=== PATIENT | female | born 1955 | race Hispanic/Latino ===

== ENCOUNTER 2017-02-11 15:28 | Inpatient (IN) | payer OTHER ==
[2017-02-11 15:34] VITALS: BMI 19.5
--- NOTE | 2017-02-11 16:15 | C.PDOC ---
History Of Present Illness Jyothi is a 61 y/o female with PMHx of thyroid disease. States that several days ago, she began having discomfort in her leg left, and trouble walking, which resolved that day. The day after (now 3 days ago), she noticed discomfort and weakness of the left arm. This was followed by a mild headache and blurred vision, which patient originally attributed to glasses Rx changes. Started to become concerned about the symptoms and went to PMD. Saw Dr. Urbina today, and was sent to ED for evaluation of possible stroke vs. cervical cord compression. PMD: Giselle Urbina Time Seen by Provider: 02/11/17 15:44 Chief Complaint (Nursing): Upper Extremity Problem/Injury History Per: Patient History/Exam Limitations: no limitations Onset/Duration Of Symptoms: Days (x 3-4) Current Symptoms Are (Timing): Still Present Past Medical History Vital Signs: Last Vital Signs Temp 98 F 02/11/17 15:35 Pulse 91 H 02/11/17 15:53 Resp 16 02/11/17 15:53 BP 181/90 H 02/11/17 15:53 Pulse Ox 100 02/11/17 15:53 - Medical History PMH: HTN, Hyperthyroidism - [facility] Procedures APPLICATION OF SPLINT (12/06/04) INJECT/INFUSE NEC (12/23/03) NEBULIZER THERAPY (05/31/03) - Social History Hx Alcohol Use: No Hx Substance Use: No - Immunization History Hx Tetanus Toxoid Vaccination: Yes Hx Influenza Vaccination: No Hx Pneumococcal Vaccination: No ED Course And Treatment O2 Sat by Pulse Oximetry: 100 Disposition - Disposition Forms: [facility] (Botswanan)
--- NOTE | 2017-02-11 16:15 | RAD ---
HISTORY: CVA COMPARISON: No prior. FINDINGS: LUNGS: No active pulmonary disease. PLEURA: No significant pleural effusion identified, no pneumothorax apparent. CARDIOVASCULAR: Normal. OSSEOUS STRUCTURES: No significant abnormalities. VISUALIZED UPPER ABDOMEN: Normal. OTHER FINDINGS: None. IMPRESSION: No acute cardiopulmonary disease is appreciable.
--- NOTE | 2017-02-11 16:20 | C.PDOC ---
History Of Present Illness Jyothi is a 61 y/o female with PMHx of thyroid disease and HTN. States that several days ago, she began having discomfort in her leg left, and trouble walking, which resolved that day. The day after (now 3 days ago), she noticed discomfort and weakness of the left arm. This was followed by a mild headache and blurred vision, which patient originally attributed to need for glasses Rx change. Started to become concerned about the symptoms and went to PMD. Saw Dr. Urbina today, and was sent to ED for evaluation of possible stroke vs. cervical cord compression. No chest pain, shortness of breath, change in appetite, or altered mental status. Carotid doppler was done in the office and according to him showed a 50-70% occlusion. PMD: Giselle Urbina Time Seen by Provider: 02/11/17 15:44 Chief Complaint (Nursing): Upper Extremity Problem/Injury History Per: Patient History/Exam Limitations: no limitations Onset/Duration Of Symptoms: Days (x 3-4) Current Symptoms Are (Timing): Still Present Associated Symptoms: Blurred Vision, Extremity Weakness Past Medical History Reviewed: Historical Data, Nursing Documentation, Vital Signs Vital Signs: Last Vital Signs Temp 98 F 02/11/17 15:35 Pulse 93 H 02/11/17 16:40 Resp 17 02/11/17 16:40 BP 191/90 H 02/11/17 16:40 Pulse Ox 100 02/11/17 16:40 - Medical History PMH: HTN, Hyperthyroidism Surgical History: No Surg Hx - [facility] Procedures APPLICATION OF SPLINT (12/06/04) INJECT/INFUSE NEC (12/23/03) NEBULIZER THERAPY (05/31/03) Family History: States: CAD, Diabetes, Other Other Family History: COPD, Liver cancer - Social History Hx Tobacco Use: Yes Hx Alcohol Use: No Hx Substance Use: No - Immunization History Hx Tetanus Toxoid Vaccination: Yes Hx Influenza Vaccination: No Hx Pneumococcal Vaccination: No Review Of Systems Except As Marked, All Systems Reviewed And Found Negative. Eyes: Positive for: Vision Change (blurred) Cardiovascular: Negative for: Chest Pain Respiratory: Negative for: Shortness of Breath Neurological: Positive for: Weakness (of the left arm and leg), Headache (mild) . Negative for: Altered Mental Status Physical Exam - Physical Exam Appears: Non-toxic, No Acute Distress Skin: Normal Color, Warm, Dry Head: Atraumatic, Normacephalic Eye(s): bilateral: Normal Inspection, PERRL, EOMI Oral Mucosa: Moist Neck: Other (Bilateral carotid bruits) Chest: Symmetrical Cardiovascular: Rhythm Regular, No Murmur Respiratory: Normal Breath Sounds, No Accessory Muscle Use Gastrointestinal/Abdominal: Normal Exam, Soft, No Tenderness Neurological/Psych: Oriented x3, Normal Speech, Normal Cranial Nerves, No Normal Motor (Weakness of left arm and leg), No Normal Sensation (Decreased sensation to left arm, leg, and cheek), Other (Babinski normal on right, equivocal on left) Extremity: Left: Drift Before 10 Secs (able to lift both extremities), Upper: Drift Before 10 Secs, Lower: Drift Before 10 Secs ED Course And Treatment - Laboratory Results Result Diagrams: 02/11/17 16:07 02/11/17 16:07 Lab Interpretation: No Acute Changes ECG: Interpreted By Me ECG Rhythm: Sinus Rhythm ECG Interpretation: Normal O2 Sat by Pulse Oximetry: 100 (RA) Pulse Ox Interpretation: Normal - Radiology CXR: Viewed By Me, Read By Radiologist CXR Interpretation: Yes: No Acute Disease - CT Scan/US CT Head Other Rad Studies (CT/US): Read By Radiologist, Radiology Report Reviewed CT/US Interpretation: Accession No. : [id number]. Patient Name / ID : BERLIN MACK / [id number]. Exam Date : 02/11/2017 16:16:36 ( Approved ). Study Comment : Sex / Age : F / 61Y. Creator : Juan Carlos Santamaria MD. Dictator : Juan Carlos Santamaria MD. Direct Care Staffer : Hand Clerical Verifier : Juan Carlos Santamaria MD. Approver2 : Report Date : 02/11/2017 16:25:00. My Comment : . PROCEDURE: CT HEAD WITHOUT CONTRAST. HISTORY: STROKE ALERT. COMPARISON: None available. TECHNIQUE: Axial computed tomography images were obtained through the head/brain without intravenous contrast. Radiation dose: Total exam DLP = 766 mGy-cm. This CT exam was performed using one or more of the following dose reduction techniques: Automated exposure control, adjustment of the mA and/or kV according to patient size, and/or use of iterative reconstruction technique. FINDINGS: HEMORRHAGE: No intracranial hemorrhage. BRAIN: A small chronic lacune or dilated perivascular a seen at the posterior margins of the left internal capsule. Remaining parenchymal density is unremarkable above and below the tentorium including throughout the brainstem. Borderline diffuse cerebral atrophy is appreciated. There is no mass effect. There is no suspicious extra-axial collection appreciated. . VENTRICLES: Unremarkable. No hydrocephalus. CALVARIUM: Unremarkable. PARANASAL SINUSES: Unremarkable as visualized. No significant inflammatory changes. MASTOID AIR CELLS: Unremarkable as visualized. No inflammatory changes. OTHER FINDINGS: None. IMPRESSION: 1. Borderline diffuse cerebral atrophy. A small chronic lacune or dilated perivascular space is noted at the posterior margins of the posterior limb left internal capsule. 2. No intracranial hemorrhage, cortical edema or mass-effect. Findings were discussed with Dr. Cristina 02/11/2017 16:20 p.m. with written down and read back verification. Reevaluation Time: 16:50 Reassessment Condition: Unchanged - Physician Consult Information Time Consulting Physician Contacted: 16:50 Physician Contacted: Giselle Urbina Outcome Of Conversation: Patient to be admited for MRI of head and neck, r/o CVA vs possible cord compression. Medical Decision Making Medical Decision Making: Time: 15:53 Initial Plan: --Labs, CXR, and EKG ordered --Pending CT Head w/o contrast Time: 16:13 Chest X-Ray: FINDINGS: LUNGS: No active pulmonary disease. PLEURA: No significant pleural effusion identified, no pneumothorax apparent. CARDIOVASCULAR: Normal. OSSEOUS STRUCTURES: No significant abnormalities. VISUALIZED UPPER ABDOMEN: Normal. OTHER FINDINGS: None. IMPRESSION: No acute cardiopulmonary disease is appreciable. Time: 16:25 CT Head w/o contrast: FINDINGS: HEMORRHAGE: No intracranial hemorrhage. BRAIN: A small chronic lacune or dilated perivascular a seen at the posterior margins of the left internal capsule. Remaining parenchymal density is unremarkable above and below the tentorium including throughout the brainstem. Borderline diffuse cerebral atrophy is appreciated. There is no mass effect. There is no suspicious extra-axial collection appreciated. . VENTRICLES: Unremarkable. No hydrocephalus. CALVARIUM: Unremarkable. PARANASAL SINUSES: Unremarkable as visualized. No significant inflammatory changes. MASTOID AIR CELLS: Unremarkable as visualized. No inflammatory changes. OTHER FINDINGS: None. IMPRESSION: 1. Borderline diffuse cerebral atrophy. A small chronic lacune or dilated perivascular space is noted at the posterior margins of the posterior limb left internal capsule. 2. No intracranial hemorrhage, cortical edema or mass-effect. Findings were discussed with Dr. Cristina 02/11/2017 16:20 p.m. with written down and read back verification. Disposition - Disposition Disposition: HOSPITALIZED Disposition Time: 16:51 Condition: STABLE - POA Present On Arrival: None - Clinical Impression Clinical Impression: Hemiplegia and hemiparesis following unspecified cerebrovascular disease affecting left dominant side - Scribe Statement The provider has reviewed the documentation as recorded by the Ani Muñoz All medical record entries made by the Belgicaibmiguel were at my direction and personally dictated by me. I have reviewed the chart and agree that the record accurately reflects my personal performance of the history, physical exam, medical decision making, and the department course for this patient. I have also personally directed, reviewed, and agree with the discharge instructions and disposition.
[2017-02-11 16:23] LABS: BASO # 0.1 K/uL (0.0-0.2); BASO % 0.6 % (0.0-2.0); EOS # 0.2 K/uL (0.0-0.7); EOS % 1.3 % (0.0-4.0); HEMATOCRIT 44.2 % (34.0-47.0); LYMPH # 3.6 K/uL (1.0-4.3); LYMPH % 31.2 % (20.0-40.0); MEAN CELL VOLUME 82.9 fL (81.0-99.0); MEAN CORPUSCULAR HEMOGLOBIN 27.7 pg (27.0-31.0); MEAN CORPUSCULAR HGB CONC 33.4 g/dL (33.0-37.0); MEAN PLATELET VOLUME 7.6 fL (7.2-11.7); MONO # 1.1 K/uL (0.0-0.8); MONO % 9.2 % (0.0-10.0); NRBC % 0.1 % (0.0-2.0); RED CELL DISTRIBUTION WIDTH 15.1 % (11.5-14.5); WHITE BLOOD COUNT 11.6 K/uL (4.8-10.8)
[2017-02-11 16:25] LABS: CHLORIDE 103 mmol/L (98-107); SODIUM 141 mmol/L (132-148)
--- NOTE | 2017-02-11 16:25 | C.PDOC ---
Time Seen by Provider: 02/11/17 15:44 Chief Complaint (Nursing): Upper Extremity Problem/Injury Past Medical History Vital Signs: Last Vital Signs Temp 98 F 02/11/17 15:35 Pulse 87 02/11/17 15:35 Resp 18 02/11/17 15:35 BP 180/83 H 02/11/17 15:35 Pulse Ox 100 02/11/17 15:35 - Medical History PMH: HTN, Hyperthyroidism - [facility] Procedures APPLICATION OF SPLINT (12/06/04) INJECT/INFUSE NEC (12/23/03) NEBULIZER THERAPY (05/31/03) - Social History Hx Alcohol Use: No Hx Substance Use: No - Immunization History Hx Tetanus Toxoid Vaccination: Yes Hx Influenza Vaccination: No Hx Pneumococcal Vaccination: No ED Course And Treatment O2 Sat by Pulse Oximetry: 100 Disposition - Disposition Forms: [employer] [facility] (Armenian)
--- NOTE | 2017-02-11 16:26 | CT ---
PROCEDURE: CT HEAD WITHOUT CONTRAST. HISTORY: STROKE ALERT COMPARISON: None available. TECHNIQUE: Axial computed tomography images were obtained through the head/brain without intravenous contrast. Radiation dose: Total exam DLP = 766 mGy-cm. This CT exam was performed using one or more of the following dose reduction techniques: Automated exposure control, adjustment of the mA and/or kV according to patient size, and/or use of iterative reconstruction technique. FINDINGS: HEMORRHAGE: No intracranial hemorrhage. BRAIN: A small chronic lacune or dilated perivascular a seen at the posterior margins of the left internal capsule. Remaining parenchymal density is unremarkable above and below the tentorium including throughout the brainstem. Borderline diffuse cerebral atrophy is appreciated. There is no mass effect. There is no suspicious extra-axial collection appreciated. . VENTRICLES: Unremarkable. No hydrocephalus. CALVARIUM: Unremarkable. PARANASAL SINUSES: Unremarkable as visualized. No significant inflammatory changes. MASTOID AIR CELLS: Unremarkable as visualized. No inflammatory changes. OTHER FINDINGS: None. IMPRESSION: 1. Borderline diffuse cerebral atrophy. A small chronic lacune or dilated perivascular space is noted at the posterior margins of the posterior limb left internal capsule. 2. No intracranial hemorrhage, cortical edema or mass-effect. Findings were discussed with Dr. Cristina 02/11/2017 16:20 p.m. with written down and read back verification.
[2017-02-11 16:27] LABS: CHOLESTEROL 245 mg/dL (0-199)
[2017-02-11 16:28] LABS: ALB/GLOB RATIO 1.4 (1.0-2.1); ALKALINE PHOSPHATASE 58 U/L (38-126); AST/SGOT 18 U/L (14-36); BILIRUBIN,TOTAL 0.5 mg/dL (0.2-1.3); BLOOD UREA NITROGEN 13 mg/dL (7-17); CARBON DIOXIDE 26 mmol/L (22-30); GFR AFRICAN-AMERICAN > 60; GLUCOSE,RANDOM 140 mg/dL (65-105); TOTAL PROTEIN 7.7 g/dL (6.3-8.3)
[2017-02-11 16:29] LABS: ALT/SGPT 32 U/L (9-52); CALCIUM 9.4 mg/dl (8.6-10.4)
[2017-02-12] MEDS: Levothyroxine 75 MCG TAB PO SCH (06:08)
[2017-02-12] MEDS: Enoxaparin 40 mg Syringe SC SCH (09:09)
--- NOTE | 2017-02-12 11:15 | MRI ---
PROCEDURE: Magnetic Resonance Angiography Brain HISTORY: left hemiplegia,hemiparesis COMPARISON: None available. TECHNIQUE: 3D time of flight MR angiography of the intracranial arteries was performed. Rotating maximum intensity projection images were generated. FINDINGS: INTERNAL CEREBRAL ARTERIES: There is mild asymmetric narrowing of the right intracranial internal carotid artery. The left internal carotid artery is normal in caliber and widely patent. The skull base, petrous, cavernous and supraclinoid segments are bilaterally widely patient. ANTERIOR CEREBRAL ARTERIES: Widely patent. The right A1 segment is hypoplastic, an anatomic variant. A1 and A2 segments are widely patent. Smaller distal branches unremarkable, as visualized. MIDDLE CEREBRAL ARTERIES: Normal in caliber and widely patent. M1 and M2 segments are widely patent. Perisylvian branches grossly symmetric. There is early bifurcation of right M1 segment. POSTERIOR CIRCULATION: Basilar Artery: Normal in caliber and widely patent. . Distal Vertebral Arteries: Widely patent. The right vertebral artery is hypoplastic, an anatomic variant. Posterior Cerebral Arteries: Normal. Posterior Inferior Cerebellar Arteries: Normal. ANEURYSM/ VASCULAR MALFORMATIONS: None. OTHER FINDINGS: None. IMPRESSION: 1. No evidence of occlusion or saccular aneurysm. 2. Mild asymmetric narrowing of the right intracranial internal carotid artery could be related to underlying atherosclerosis.
--- NOTE | 2017-02-12 11:33 | MRI ---
PROCEDURE: MRI BRAIN WITHOUT CONTRAST HISTORY: left hemiphlegia,hemiparesis COMPARISON: Noncontrast head CT from 02/11/2017 TECHNIQUE: Multiplanar, multisequence MR images of the brain were obtained without intravenous contrast enhancement. FINDINGS: HEMORRHAGE: None DWI: There are several scattered foci of restricted diffusion in the right frontal and parietal cortex and subcortical white matter BRAIN PARENCHYMA: There are mild chronic microangiopathic changes. There is no mass, mass effect or abnormal extra-axial fluid collection. The midline sagittal structures are normal. VENTRICLES: There is mild age-related global parenchymal volume loss and proportionate enlargement of the ventricles and cortical sulci. CRANIUM: There is normal bone marrow signal pattern. ORBITS: Grossly unremarkable. PARANASAL SINUSES/MASTOIDS: Predominantly clear. VASCULAR SYSTEM: There is mild asymmetric narrowing of the right intracranial internal carotid artery flow void. There are normal signal voids in the remaining larger intracranial arteries. OTHER FINDINGS: None. IMPRESSION: 1. Scattered foci of restricted diffusion in the right frontal and parietal cortex and subcortical white matter consistent with right MCA territory infarction. The pattern of distribution is in keeping with embolic etiology. 2. Mild asymmetric narrowing of the right intracranial internal carotid artery likely related to underlying atherosclerosis. Important findings were discussed with nurse Itzel Clement on 02/12/2017 at 11:25 a.m.
--- NOTE | 2017-02-12 11:39 | CP.PCM.PN ---
Subjective - Date & Time of Evaluation Date of Evaluation: 02/12/17 Time of Evaluation: 11:30 - Subjective Subjective: PROGRESS NOTE. Service for Dr. Urbina Pt seen and examined at bedside. No acute distress. No events overnight. Neurology workup pending, including results from MRI. No fevers, chills, vomiting, diarrhea. Still admits to weakness left side, improved. PMD: Dr. Urbina PMH: HTN, hypothyroidism, anxiety PSHx: Cholecystectomy Family Hx: Type 2 diabetes, HTN, "heart problems" Social: Tobacco: 1 ppd x 40 years, denies alcohol and drug use. Born in . Allergies: Iodine (anaphylaxis), fish Medications: Synthroid, Lorazepam, HCTZ Objective - Vital Signs/Intake and Output Vital Signs (last 24 hours): Temp Pulse Resp BP Pulse Ox 98.2 F 74 20 134/71 97 02/12/17 04:10 02/12/17 04:10 02/12/17 04:10 02/12/17 04:10 02/12/17 04:10 - Medications Medications: Current Medications Acetaminophen (Tylenol 325mg Tab) 650 mg PO Q4H PRN PRN Reason: Pain, moderate (4-7) Aspirin (Aspirin) 325 mg PO DAILY [facility] Last Admin: 02/12/17 09:09 Dose: 325 mg Enoxaparin Sodium (Lovenox) 40 mg SC DAILY [facility] Last Admin: 02/12/17 09:09 Dose: Not Given Hydrochlorothiazide (Microzide) 12.5 mg PO DAILY [facility] Last Admin: 02/12/17 09:09 Dose: 12.5 mg Levothyroxine Sodium (Synthroid) 75 mcg PO DAILY@0630 [facility] Last Admin: 02/12/17 06:08 Dose: 75 mcg Lorazepam (Ativan) 1 mg PO Q8H [facility] Last Admin: 02/12/17 06:31 Dose: 1 mg Rosuvastatin Calcium (Crestor) 10 mg PO HS [facility] Last Admin: 02/11/17 22:30 Dose: 10 mg - Labs Labs: PT 11.2 SECONDS (9.7-12.2) 02/11/17 16:07 INR 1.0 02/11/17 16:07 APTT 30 SECONDS (21-34) 02/11/17 16:07 - Constitutional Appears: Non-toxic, No Acute Distress - Head Exam Head Exam: ATRAUMATIC, NORMAL INSPECTION, NORMOCEPHALIC - Eye Exam Eye Exam: EOMI - ENT Exam ENT Exam: Mucous Membranes Moist - Neck Exam Neck Exam: Full ROM, Normal Inspection - Respiratory Exam Respiratory Exam: NORMAL BREATHING PATTERN. absent: Respiratory Distress - Cardiovascular Exam Cardiovascular Exam: +S1, +S2 - GI/Abdominal Exam GI & Abdominal Exam: Soft, Normal Bowel Sounds. absent: Tenderness - Extremities Exam Extremities Exam: Full ROM, Normal Inspection - Neurological Exam Neurological Exam: Alert, Awake, Oriented x3 Neuro motor strength exam: Left Upper Extremity: 3, Right Upper Extremity: 5, Left Lower Extremity: 3, Right Lower Extremity: 5 - Psychiatric Exam Psychiatric exam: Normal Affect, Normal Mood - Skin Skin Exam: Dry, Intact, Normal Color, Warm Assessment and Plan - Assessment and Plan (Free Text) Assessment: This is a 61 yo female with past medical hx of HTN and hypothyroidism presenting with weakness, left sided 1. Weakness, left sided -carotid dopplers pending -MRI brain pending -asa 325 daily -neurology consult. recs appreciated -vascular sx consult. recs appreciated. -crestor 10 PO HS -lovenox 40 SC daily -cxr negative -head ct shows diffuse cerebral atrophy -ekg shows nsr -tylenol for pain 2. hx of hypothyroid -continue synthroid 75 mcg daily 3. hx of HTN -continue hctz 12.5 mg po daily 4. GI/DVT ppx -lovenox -protonix discussed with Dr. Urbina
--- NOTE | 2017-02-12 11:42 | CP.PCM.PN ---
Subjective - Date & Time of Evaluation Date of Evaluation: 02/12/17 Time of Evaluation: 11:41 - Subjective Subjective: awaiting additional imaging suplex and cta prior to decision re intervention Objective - Vital Signs/Intake and Output Vital Signs (last 24 hours): Temp Pulse Resp BP Pulse Ox 98.2 F 74 20 134/71 97 02/12/17 04:10 02/12/17 04:10 02/12/17 04:10 02/12/17 04:10 02/12/17 04:10 - Medications Medications: Current Medications Acetaminophen (Tylenol 325mg Tab) 650 mg PO Q4H PRN PRN Reason: Pain, moderate (4-7) Aspirin (Aspirin) 325 mg PO DAILY [facility] Last Admin: 02/12/17 09:09 Dose: 325 mg Enoxaparin Sodium (Lovenox) 40 mg SC DAILY [facility] Last Admin: 02/12/17 09:09 Dose: Not Given Hydrochlorothiazide (Microzide) 12.5 mg PO DAILY [facility] Last Admin: 02/12/17 09:09 Dose: 12.5 mg Levothyroxine Sodium (Synthroid) 75 mcg PO DAILY@0630 [facility] Last Admin: 02/12/17 06:08 Dose: 75 mcg Lorazepam (Ativan) 1 mg PO Q8H [facility] Last Admin: 02/12/17 06:31 Dose: 1 mg Pantoprazole Sodium (Protonix Inj) 40 mg IVP DAILY [facility] Rosuvastatin Calcium (Crestor) 10 mg PO HS [facility] Last Admin: 02/11/17 22:30 Dose: 10 mg - Labs Labs: PT 11.2 SECONDS (9.7-12.2) 02/11/17 16:07 INR 1.0 02/11/17 16:07 APTT 30 SECONDS (21-34) 02/11/17 16:07
[2017-02-12 11:44] LABS: BASO # 0.1 K/uL (0.0-0.2); BASO % 0.5 % (0.0-2.0); EOS # 0.2 K/uL (0.0-0.7); EOS % 1.4 % (0.0-4.0); HEMATOCRIT 42.1 % (34.0-47.0); LYMPH # 3.8 K/uL (1.0-4.3); LYMPH % 30.8 % (20.0-40.0); MEAN CELL VOLUME 82.7 fL (81.0-99.0); MEAN CORPUSCULAR HEMOGLOBIN 27.1 pg (27.0-31.0); MEAN CORPUSCULAR HGB CONC 32.8 g/dL (33.0-37.0); MEAN PLATELET VOLUME 7.7 fL (7.2-11.7); MONO # 1.4 K/uL (0.0-0.8); MONO % 11.3 % (0.0-10.0); RED CELL DISTRIBUTION WIDTH 15.3 % (11.5-14.5); WHITE BLOOD COUNT 12.4 K/uL (4.8-10.8)
--- NOTE | 2017-02-12 11:46 | MRI ---
PROCEDURE: MR CERVICAL SPINE WITHOUT CONTRAST HISTORY: Left hemiplegia, hemiparesis COMPARISON: None available. TECHNIQUE: Multiecho multiplanar sequences were performed through the cervical spine without the use of intravenous contrast. FINDINGS: There is normal alignment of the cervical vertebral bodies. There is normal cervical lordosis. Vertebral height is normal. There is no acute fracture or spondylolisthesis. The craniocervical junction is normal. The atlantoaxial joint is normal. Bone marrow signal is within normal limits. The cervical cord is normal in contour, caliber and has normal intrinsic signal. C2-C3: No disc herniation, spinal canal stenosis or neural foraminal narrowing. C3-C4: No disc herniation, spinal canal stenosis or neural foraminal narrowing. C4-C5: Disc osteophyte complex with small central disc protrusion without spinal canal stenosis. Asymmetric right greater than left facet arthropathy contributes to mild right neural foraminal stenosis. C5-C6: Disc osteophyte complex, uncovertebral joint hypertrophy and mild bilateral facet arthropathy result in moderate to severe right and moderate left neural foraminal stenosis. No central spinal canal stenosis. C6-C7: Disc osteophyte complex, asymmetric right left uncovertebral joint hypertrophy and mild bilateral facet arthropathy result in severe right neural foraminal stenosis. No spinal canal stenosis. C7-T1: Disc osteophyte complex with small central disc protrusion indents the ventral thecal sac without central spinal canal stenosis. Also noted is mild right neural foraminal stenosis. OTHER FINDINGS: None. IMPRESSION: Mild multilevel degenerative disc disease, worse at C7-T1 with a central disc protrusion and mild right neural foraminal stenosis. No spinal canal stenosis. At C6-7, severe right neural foraminal stenosis. No central spinal canal stenosis. Additional comments as described above.
[2017-02-12 11:55] LABS: CHLORIDE 103 mmol/L (98-107); POTASSIUM 3.8 mmol/L (3.6-5.2); SODIUM 144 mmol/L (132-148)
[2017-02-12 11:57] LABS: AST/SGOT 21 U/L (14-36); BILIRUBIN,TOTAL 0.6 mg/dL (0.2-1.3); CARBON DIOXIDE 32 mmol/L (22-30); GFR AFRICAN-AMERICAN > 60
[2017-02-12 11:58] LABS: ALB/GLOB RATIO 1.3 (1.0-2.1); ALKALINE PHOSPHATASE 50 U/L (38-126); ALT/SGPT 30 U/L (9-52); BLOOD UREA NITROGEN 13 mg/dL (7-17); CALCIUM 9.2 mg/dl (8.6-10.4); GLUCOSE,RANDOM 88 mg/dL (65-105); TOTAL PROTEIN 7.4 g/dL (6.3-8.3)
--- NOTE | 2017-02-12 13:41 | CP.PCM.HP ---
Review of Systems - Constitutional Constitutional: Weakness (left arm and leg). absent: Headache - EENT Eyes: Change in Vision, Floaters, Sees Flashes, Spots in Vision Ears: absent: Dizziness - Cardiovascular Cardiovascular: absent: Chest Pain, Dyspnea, Lightheadedness - Respiratory Respiratory: absent: Dyspnea - Gastrointestinal Gastrointestinal: absent: Abdominal Pain, Constipation, Diarrhea, Nausea, Vomiting - Neurological Neurological: Weakness, Other Visual Disturbances. absent: Abnormal Speech, Dizziness, Headaches - Psychiatric Psychiatric: Anxiety Past Patient History - Past Medical History & Family History Past Medical History?: Yes - Past Social History Smoking Status: Heavy Smoker > 10 Cigarettes Daily - CARDIAC Hx Cardiac Disorders: Yes Hx Hypertension: Yes - PULMONARY Hx Respiratory Disorders: Yes Hx Asthma: Yes - NEUROLOGICAL Hx Neurological Disorder: No - HEENT Hx HEENT Problems: Yes Other/Comment: some occasional loss of vision in right eye - RENAL Hx Chronic Kidney Disease: No - ENDOCRINE/METABOLIC Hx Endocrine Disorders: Yes Hx Hyperthyroidism: Yes - HEMATOLOGICAL/ONCOLOGICAL Hx Blood Disorders: No - INTEGUMENTARY Hx Dermatological Problems: No - MUSCULOSKELETAL/RHEUMATOLOGICAL Hx Musculoskeletal Disorders: No Hx Falls: No - GASTROINTESTINAL Hx Gastrointestinal Disorders: No - GENITOURINARY/GYNECOLOGICAL Hx Genitourinary Disorders: No - PSYCHIATRIC Hx Psychophysiologic Disorder: No Hx Substance Use: No - SURGICAL HISTORY Hx Surgeries: No - ANESTHESIA Hx Anesthesia: Yes Hx Anesthesia Reactions: Yes (nausea/vomiting) Meds Allergies/Adverse Reactions: Allergies Allergy/AdvReac Type Severity Reaction Status Date / Time iodine Allergy Verified 02/11/17 15:34 Physical Exam - Head Exam Head Exam: ATRAUMATIC, NORMAL INSPECTION - Eye Exam Eye Exam: EOMI, Normal appearance - ENT Exam ENT Exam: Mucous Membranes Moist - Respiratory Exam Respiratory Exam: Decreased Breath Sounds, Clear to Auscultation Bilateral. absent: Rhonchi, Wheezes - Cardiovascular Exam Cardiovascular Exam: REGULAR RHYTHM, +S1, +S2 - GI/Abdominal Exam GI & Abdominal Exam: Soft. absent: Distended, Tenderness - Extremities Exam Extremities exam: Positive for: pedal pulses present. Negative for: pedal edema , tenderness - Neurological Exam Neurological exam: Alert, CN II-XII Intact, Normal Gait, Oriented x3 Additional comments: Right UE & LE strength 5/5 Left UE & LE strength 3/5 - Psychiatric Exam Psychiatric exam: Normal Affect, Normal Mood - Skin Skin Exam: Dry, Intact, Normal Color, Warm Results - Vital Signs Recent Vital Signs: Last Vital Signs Temp 98.2 F 02/12/17 04:10 Pulse 74 02/12/17 04:10 Resp 20 02/12/17 04:10 BP 134/71 02/12/17 04:10 Pulse Ox 97 02/12/17 04:10 - Labs Result Diagrams: 02/12/17 11:38 02/12/17 11:38 Labs: Laboratory Results - last 24 hr 02/12/17 02/12/17 11:38 11:38 WBC 12.4 H RBC 5.09 Hgb 13.8 Hct 42.1 MCV 82.7 MCH 27.1 MCHC 32.8 L RDW 15.3 H Plt Count 306 MPV 7.7 Neut % (Auto) 56.0 Lymph % (Auto) 30.8 [place] % (Auto) 11.3 H Eos % (Auto) 1.4 Baso % (Auto) 0.5 Neut # 6.9 Lymph # 3.8 [place] # 1.4 H Eos # 0.2 Baso # 0.1 Sodium 144 Potassium 3.8 Chloride 103 Carbon Dioxide 32 H Anion Gap 13 BUN 13 Creatinine 0.7 Est GFR ( Amer) > 60 Est GFR (Non-Af Amer) > 60 Random Glucose 88 Calcium 9.2 Total Bilirubin 0.6 AST 21 ALT 30 Alkaline Phosphatase 50 Total Protein 7.4 Albumin 4.2 Globulin 3.3 Albumin/Globulin Ratio 1.3
--- NOTE | 2017-02-12 13:57 | CP.PCM.CON ---
History of Present Illness - History of Present Illness History of Present Illness: Patient is a 61 year old female with a past medical history of HTN, hypothyroidism and anxiety, who was sent to the [facility] ED by her PMD ( Dr. Urbina) for evaluation of left-sided hemiparesis. Patient states the left- sided weakness began 4 days ago when she was in bed and prompted her to visit her PMD. Patient states that she had imaging done "in the vessels of her neck," which showed occlusion but patient is unsure to which degree. Patient also reports having changes in vision and seeing floaters for which she has an appointment next week for laser surgery. She reports that she believes her symptoms started with the vision changes, followed by the left-sided weakness. Patient currently denies chest pain, abdominal pain, nausea, vomiting, fevers, and headaches. PMD: Dr. Urbina PMH: HTN (uncontrolled), hypothyroidism, anxiety PSHx: Cholecystectomy Family Hx: Type 2 diabetes, HTN, "heart problems" Social: Tobacco: 1 ppd x40 years, denies alcohol and drug use Allergies: Iodine (anaphylaxis), fish Medications: Synthroid, Lorazepam, HCTZ (see EMR) Review of Systems - Constitutional Constitutional: Weakness. absent: Headache - EENT Eyes: Change in Vision, Floaters, Spots in Vision Ears: absent: Dizziness - Cardiovascular Cardiovascular: absent: Chest Pain, Dyspnea, Lightheadedness - Respiratory Respiratory: absent: Dyspnea - Gastrointestinal Gastrointestinal: absent: Abdominal Pain, Constipation, Diarrhea, Nausea, Vomiting - Musculoskeletal Additional comments: left sided weakness - Neurological Neurological: Weakness, Other Visual Disturbances. absent: Abnormal Speech, Dizziness, Headaches - Psychiatric Psychiatric: Anxiety Past Patient History - Past Medical History & Family History Past Medical History?: Yes - Past Social History Smoking Status: Heavy Smoker > 10 Cigarettes Daily - CARDIAC Hx Cardiac Disorders: Yes Hx Hypertension: Yes - PULMONARY Hx Respiratory Disorders: Yes Hx Asthma: Yes - NEUROLOGICAL Hx Neurological Disorder: No - HEENT Hx HEENT Problems: Yes Other/Comment: some occasional loss of vision in right eye - RENAL Hx Chronic Kidney Disease: No - ENDOCRINE/METABOLIC Hx Endocrine Disorders: Yes Hx Hyperthyroidism: Yes - HEMATOLOGICAL/ONCOLOGICAL Hx Blood Disorders: No - INTEGUMENTARY Hx Dermatological Problems: No - MUSCULOSKELETAL/RHEUMATOLOGICAL Hx Musculoskeletal Disorders: No Hx Falls: No - GASTROINTESTINAL Hx Gastrointestinal Disorders: No - GENITOURINARY/GYNECOLOGICAL Hx Genitourinary Disorders: No - PSYCHIATRIC Hx Psychophysiologic Disorder: No Hx Substance Use: No - SURGICAL HISTORY Hx Surgeries: No - ANESTHESIA Hx Anesthesia: Yes Hx Anesthesia Reactions: Yes (nausea/vomiting) Meds Allergies/Adverse Reactions: Allergies Allergy/AdvReac Type Severity Reaction Status Date / Time iodine Allergy Verified 02/11/17 15:34 - Medications Medications: Current Medications Acetaminophen (Tylenol 325mg Tab) 650 mg PO Q4H PRN PRN Reason: Pain, moderate (4-7) Aspirin (Aspirin) 325 mg PO DAILY [facility] Last Admin: 02/12/17 09:09 Dose: 325 mg Enoxaparin Sodium (Lovenox) 40 mg SC DAILY [facility] Last Admin: 02/12/17 09:09 Dose: Not Given Hydrochlorothiazide (Microzide) 12.5 mg PO DAILY [facility] Last Admin: 02/12/17 09:09 Dose: 12.5 mg Levothyroxine Sodium (Synthroid) 75 mcg PO DAILY@0630 [facility] Last Admin: 02/12/17 06:08 Dose: 75 mcg Lorazepam (Ativan) 1 mg PO Q8H [facility] Last Admin: 02/12/17 06:31 Dose: 1 mg Pantoprazole Sodium (Protonix Inj) 40 mg IVP DAILY [facility] Rosuvastatin Calcium (Crestor) 10 mg PO HS [facility] Last Admin: 02/11/17 22:30 Dose: 10 mg Physical Exam - Head Exam Head Exam: ATRAUMATIC, NORMAL INSPECTION - Eye Exam Eye Exam: EOMI, Normal appearance - ENT Exam ENT Exam: Mucous Membranes Moist - Respiratory Exam Respiratory Exam: Decreased Breath Sounds, Clear to Auscultation Bilateral. absent: Rhonchi, Wheezes - Cardiovascular Exam Cardiovascular Exam: REGULAR RHYTHM, +S1, +S2 - GI/Abdominal Exam GI & Abdominal Exam: Soft. absent: Distended, Firm, Tenderness - Extremities Exam Extremities exam: Positive for: pedal pulses present. Negative for: pedal edema , tenderness - Neurological Exam Neurological exam: Alert, CN II-XII Intact, Normal Gait, Oriented x3 Additional comments: Right UE & LE strength: 5/5 Left UE & LE strength: 3/5 - Psychiatric Exam Psychiatric exam: Normal Affect, Normal Mood - Skin Skin Exam: Dry, Intact, Normal Color, Warm Results - Vital Signs Recent Vital Signs: Last Vital Signs Temp 98.2 F 02/12/17 04:10 Pulse 74 02/12/17 04:10 Resp 20 02/12/17 04:10 BP 134/71 02/12/17 04:10 Pulse Ox 97 02/12/17 04:10 - Labs Result Diagrams: 02/12/17 11:38 02/12/17 11:38 Labs: Laboratory Results - last 24 hr 02/12/17 02/12/17 11:38 11:38 WBC 12.4 H RBC 5.09 Hgb 13.8 Hct 42.1 MCV 82.7 MCH 27.1 MCHC 32.8 L RDW 15.3 H Plt Count 306 MPV 7.7 Neut % (Auto) 56.0 Lymph % (Auto) 30.8 [place] % (Auto) 11.3 H Eos % (Auto) 1.4 Baso % (Auto) 0.5 Neut # 6.9 Lymph # 3.8 [place] # 1.4 H Eos # 0.2 Baso # 0.1 Sodium 144 Potassium 3.8 Chloride 103 Carbon Dioxide 32 H Anion Gap 13 BUN 13 Creatinine 0.7 Est GFR ( Amer) > 60 Est GFR (Non-Af Amer) > 60 Random Glucose 88 Calcium 9.2 Total Bilirubin 0.6 AST 21 ALT 30 Alkaline Phosphatase 50 Total Protein 7.4 Albumin 4.2 Globulin 3.3 Albumin/Globulin Ratio 1.3 Assessment & Plan - Assessment and Plan (Free Text) Assessment: 61 year old female consulted for left sided hemiparesis. - Follow up carotid duplex. - Plan for CT of the neck tomorrow, following [place] Protocol. - Continue medical management as per hospitalist team.
--- NOTE | 2017-02-12 17:00 | CARD ---
APPROVED REPORT EKG Measurement Heart [id number] <Conclusion> Normal sinus rhythm Normal ECG
--- NOTE | 2017-02-12 22:19 | CARD ---
APPROVED REPORT EXAM: Two-dimensional and M-mode echocardiogram with Doppler and color Doppler. INDICATION Pericardial Effusion RISK FACTORS Hypertension 2D DIMENSIONS IVSd0.9 (0.7-1.1cm)LVDd3.9 (3.9-5.9cm) PWd0.9 (0.7-1.1cm)LVDs2.8 (2.5-4.0cm) FS (%) 28.9 %LVEF (%)60.1 (>50%) M-Mode DIMENSIONS Left Atrium (MM)3.24 (2.5-4.0cm)Aortic Root2.65 (2.2-3.7cm) Aortic Cusp Exc.1.58 (1.5-2.0cm) Mitral Valve MV E Zifcqfuk00.6cm/sMV A Ekyvxbbt30.9cm/sE/A ratio1.0 TDI E/Lateral E'0.0E/Medial E'0.0 Tricuspid Valve TR Peak Teijvkcf022zs/sTR Peak [id number] <Conclusion> Left ventricle: thickness: normal; size: normal; overall ejection fraction: 56%: diastolic filling pressures: normal Mitral valve: annulus: normal: leaflets: normal: excursion: normal; no significant trans-mitral gradient: no significant incompetence: left atrium: normal Aortic valve: leaflets: normal: excursion: normal; no significant trans-aortic gradient: No significant incompetence: aortic root: normal Right sided Structures: Pulmonary valve: normal; no significant incompetence; Tricuspid valve: normal; no significant incompetence: Intra-cardiac hemodynamics: pulmonary systolic pressures: normal; central venous pressures: normal trace pericardial effusion
--- NOTE | 2017-02-13 05:28 | CON ---
DATE: 02/12/2017 NEUROLOGY CONSULTATION REASON FOR CONSULTATION: Left-sided weakness. HISTORY OF PRESENT ILLNESS: The patient is a 61-year-old female who came to the hospital with complaints of left-sided weakness. Her weakness started about 4 days ago. It started first in her leg and then involved her left arm as well. Thus, she saw her PMD who recommended her to go to the emergency room. The patient says over the last 4 days, her weakness on the left side has gotten a little better. Thus, she denies any difficulty with speech. Denies any difficulty with swallowing. REVIEW OF SYSTEMS: Denies any headache, dizziness, chest pain, shortness of breath, abdominal pain, constipation, diarrhea, dysuria, pyuria, cough, or sputum production. PAST MEDICAL HISTORY: Includes hypothyroidism. MEDICATIONS AT HOME: Include Synthroid and lorazepam. ALLERGIES: IODINE. SOCIAL HISTORY: She denies alcohol use or illicit drugs. She does smoke cigarettes. FAMILY HISTORY: Reviewed and noncontributory to the case. PHYSICAL EXAMINATION: GENERAL: The patient is a middle-aged female, lying in the bed, in no acute distress. VITAL SIGNS: Her blood pressure is 150/86, heart rate is 77 per minute, breathing at the rate of 16 per minute, temperature is 98.3 degrees Fahrenheit. HEENT: Head, normocephalic and atraumatic. NECK: Supple. There are no carotid bruits. LUNGS: Clear. CVS: S1 and S2 audible. No murmurs. ABDOMEN: Soft and nontender. Bowel sounds present. NEUROLOGIC: Mental status: The patient is awake and alert, oriented to time, place, and person. Speech is slow in naming and repetition is normal. Memory and cognition are intact. Cranial nerves: Pupils are 3 mm bilaterally, reactive to light. Visual alexis are full. Extraocular movements are intact. There is slight decrease in the nasolabial fold on the left side. Palate is upgoing bilaterally and tongue is midline. Motor: Tone is normal. Power, there is a left-sided pronator drift. Power on the right upper extremity is 5/5 and power on the right lower extremity 5/5. Power in the left lower extremity -5/5. Reflexes are +2 and symmetrical. Plantars downgoing bilaterally. Cerebellar examination: [id number] shows no dysmetria. LABORATORY DATA: Reviewed shows WBC 12.4, hemoglobin 13.8, hematocrit 42.1, platelets of 306. INR is 1.0. Sodium 144, potassium 3.8, chloride 103, carbon dioxide 32, BUN of 13, creatinine 0.7, and glucose of 88. Her LDL is 175. She had an MRI of the brain done which shows scattered foci of restricted diffusion in the right frontal and parietal cortex and subcortical white matter consistent with right MCA territory infarction. The pattern of distribution is in keeping with embolic etiology. The patient had MRA of the brain, which shows no evidence of an occlusion or saccular aneurysm. The patient had carotid Doppler study, the report is awaited. The patient also had an echocardiogram done, the report is awaited. IMPRESSION: Cerebrovascular accident with right middle cerebral artery distribution infarct, possible embolic etiology. RECOMMENDATIONS: 1. The patient had carotid Doppler and echocardiogram done, please follow up the reports. The preliminary report suggests severe right ICA stenosis. 2. The patient to be continued on aspirin. 3. The patient will also to be continued on statin. 4. The patient to have physical therapy. 5. The patient also to have occupational therapy. 6. Please continue the treatment. If the carotid Doppler shows the stenosis more than 70%, then consider vascular surgical evaluation. Thank you for the opportunity to participate in the care of this patient. Grupo Fagan MD
[2017-02-13] MEDS: Levothyroxine 75 MCG TAB PO SCH ×2 (06:36→10:25)
[2017-02-13 08:09] LABS: BASO % 0.2 % (0.0-2.0); HEMATOCRIT 43.7 % (34.0-47.0); LYMPH # 1.9 K/uL (1.0-4.3); LYMPH % 11.9 % (20.0-40.0); MEAN CELL VOLUME 82.7 fL (81.0-99.0); MEAN CORPUSCULAR HGB CONC 32.6 g/dL (33.0-37.0); MEAN PLATELET VOLUME 8.1 fL (7.2-11.7); MONO # 0.5 K/uL (0.0-0.8); MONO % 3.1 % (0.0-10.0); WHITE BLOOD COUNT 15.8 K/uL (4.8-10.8)
--- NOTE | 2017-02-13 08:29 | CP.PCM.PN ---
Subjective - Date & Time of Evaluation Date of Evaluation: 02/13/17 Time of Evaluation: 08:29 - Subjective Subjective: Patient was seen and examined at bedside. Patient reports having the same feeling of weakness in her left arm and leg. Patient denies pain. Patient reports she is anxious about having CT angiogram of the neck today, wants to wait to discuss with family. Patient denies having chest pain, abdominal pain, nausea, vomiting, headaches, and fevers. Objective - Vital Signs/Intake and Output Vital Signs (last 24 hours): Temp Pulse Resp BP Pulse Ox 97.8 F 78 20 147/80 96 02/13/17 04:23 02/13/17 04:23 02/13/17 04:23 02/13/17 04:23 02/13/17 04:23 - Medications Medications: Current Medications Acetaminophen (Tylenol 325mg Tab) 650 mg PO Q4H PRN PRN Reason: Pain, moderate (4-7) Aspirin (Aspirin) 325 mg PO DAILY [facility] Last Admin: 02/12/17 09:09 Dose: 325 mg Enoxaparin Sodium (Lovenox) 40 mg SC DAILY [facility] Last Admin: 02/12/17 09:09 Dose: Not Given Hydrochlorothiazide (Microzide) 12.5 mg PO DAILY [facility] Last Admin: 02/12/17 09:09 Dose: 12.5 mg Levothyroxine Sodium (Synthroid) 75 mcg PO DAILY@0630 [facility] Last Admin: 02/13/17 06:36 Dose: Not Given Lorazepam (Ativan) 1 mg PO Q8H [facility] Last Admin: 02/13/17 05:58 Dose: 1 mg Pantoprazole Sodium (Protonix Inj) 40 mg IVP DAILY [facility] Rosuvastatin Calcium (Crestor) 10 mg PO HS [facility] Last Admin: 02/12/17 21:49 Dose: 10 mg - Labs Labs: 02/13/17 08:01 02/12/17 11:38 PT 11.2 SECONDS (9.7-12.2) 02/11/17 16:07 INR 1.0 02/11/17 16:07 APTT 30 SECONDS (21-34) 02/11/17 16:07 - Head Exam Head Exam: ATRAUMATIC, NORMAL INSPECTION - Eye Exam Eye Exam: EOMI, Normal appearance - ENT Exam ENT Exam: Mucous Membranes Moist - Respiratory Exam Respiratory Exam: Decreased Breath Sounds, Clear to Ausculation Bilateral. absent: Rales, Rhonchi, Wheezes - Cardiovascular Exam Cardiovascular Exam: REGULAR RHYTHM, +S1, +S2 - GI/Abdominal Exam GI & Abdominal Exam: Soft, Normal Bowel Sounds. absent: Distended, Firm, Tenderness - Extremities Exam Extremities Exam: Normal Inspection. absent: Tenderness - Neurological Exam Neurological Exam: Alert, Awake, Oriented x3 - Psychiatric Exam Psychiatric exam: Anxious - Skin Skin Exam: Dry, Intact, Normal Color, Warm Assessment and Plan - Assessment and Plan (Free Text) Assessment: 61 year old female consulted for left sided hemiparesis. - Carotid duplex: follow up official report. - Plan for CT angiogram of the neck, following [place] Protocol; pending on discussion with family. - Continue medical management as per hospitalist team.
[2017-02-13 08:35] LABS: CHLORIDE 101 mmol/L (98-107); SODIUM 139 mmol/L (132-148)
[2017-02-13 08:37] LABS: BILIRUBIN,TOTAL 0.6 mg/dL (0.2-1.3); GFR AFRICAN-AMERICAN > 60
[2017-02-13 08:38] LABS: ALB/GLOB RATIO 1.3 (1.0-2.1); ALKALINE PHOSPHATASE 50 U/L (38-126); ALT/SGPT 27 U/L (9-52); AST/SGOT 18 U/L (14-36); BLOOD UREA NITROGEN 13 mg/dL (7-17); CARBON DIOXIDE 23 mmol/L (22-30); GLUCOSE,RANDOM 159 mg/dL (65-105); TOTAL PROTEIN 7.7 g/dL (6.3-8.3)
[2017-02-13 08:39] LABS: CALCIUM 9.4 mg/dl (8.6-10.4); MAGNESIUM 1.8 mg/dL (1.6-2.3); PHOSPHOROUS 3.8 mg/dL (2.5-4.5)
--- NOTE | 2017-02-13 09:14 | CP.PCM.PN ---
Subjective - Date & Time of Evaluation Date of Evaluation: 02/13/17 Time of Evaluation: 11:00 - Subjective Subjective: PGY2 Medicine Note- Dr. Urbina's service Pt seen and examined in no acute distress. Pt states that she has been experiencing left sided weakness for the past 4-5 months. She also reports right lower extremity pain for the past year. She states that she sometimes feels anxious but is otherwise okay at the moment. Daughter was present bedside. PAtient denies chest pain, palpitations, dizziness, nausea, vomiting, diarrhea or constipation at this time. Objective - Vital Signs/Intake and Output Vital Signs (last 24 hours): Temp Pulse Resp BP Pulse Ox 97.9 F 86 20 167/89 H 99 02/13/17 09:05 02/13/17 09:05 02/13/17 09:05 02/13/17 09:05 02/13/17 09:05 - Medications Medications: Current Medications Acetaminophen (Tylenol 325mg Tab) 650 mg PO Q4H PRN PRN Reason: Pain, moderate (4-7) Aspirin (Aspirin) 325 mg PO DAILY [facility] Last Admin: 02/12/17 09:09 Dose: 325 mg Enoxaparin Sodium (Lovenox) 40 mg SC DAILY [facility] Last Admin: 02/12/17 09:09 Dose: Not Given Hydrochlorothiazide (Microzide) 12.5 mg PO DAILY [facility] Last Admin: 02/12/17 09:09 Dose: 12.5 mg Levothyroxine Sodium (Synthroid) 75 mcg PO DAILY@0630 [facility] Last Admin: 02/13/17 06:36 Dose: Not Given Lorazepam (Ativan) 1 mg PO Q8H [facility] Last Admin: 02/13/17 05:58 Dose: 1 mg Pantoprazole Sodium (Protonix Inj) 40 mg IVP DAILY [facility] Rosuvastatin Calcium (Crestor) 10 mg PO HS [facility] Last Admin: 02/12/17 21:49 Dose: 10 mg - Labs Labs: 02/13/17 08:01 02/13/17 08:01 PT 11.2 SECONDS (9.7-12.2) 02/11/17 16:07 INR 1.0 02/11/17 16:07 APTT 30 SECONDS (21-34) 02/11/17 16:07 - Constitutional Appears: Non-toxic, No Acute Distress - Head Exam Head Exam: ATRAUMATIC, NORMAL INSPECTION, NORMOCEPHALIC - Eye Exam Eye Exam: EOMI, Normal appearance, PERRL Pupil Exam: NORMAL ACCOMODATION, PERRL - ENT Exam ENT Exam: Mucous Membranes Moist - Respiratory Exam Respiratory Exam: NORMAL BREATHING PATTERN. absent: Wheezes - Cardiovascular Exam Cardiovascular Exam: +S1, +S2 - GI/Abdominal Exam GI & Abdominal Exam: Soft, Normal Bowel Sounds - Extremities Exam Extremities Exam: Calf Tenderness, Full ROM, Normal Capillary Refill. absent: Pedal Edema - Back Exam Back Exam: Full ROM - Neurological Exam Neurological Exam: Alert, Awake, CN II-XII Intact, Oriented x3 Neuro motor strength exam: Left Upper Extremity: 4, Right Upper Extremity: 5, Left Lower Extremity: 4, Right Lower Extremity: 5 - Psychiatric Exam Psychiatric exam: Normal Affect, Normal Mood - Skin Skin Exam: Dry, Normal Color, Warm Assessment and Plan - Assessment and Plan (Free Text) Assessment: Left sided hemeparesis Carotid dopplers Right: 70-95% of the right proximal ICA with severe hemodynamic significance; left: 60-70% stenosis of left proximal and mid ICA with moderte hemodynamic significance. CTA confirms findings. Refer to full report. -MRI brain: suspected right MCA territory infarction -ASA 325 daily with Crestor 10 mg HS -F/U Neuro reccs -F/U Vascular Surgery recs- Patient to OR on Thursday for endarterectomy -ekg shows nsr -tylenol for pain Hypothyroidism Continue synthroid 75 mcg daily HTN Cont HCTZ 12.5 mg po daily Hypercholesterolemia Crestor 10mg PO HS Anxiety On Lorazapam Q8H Prophylaxis -Lovenox 40 mg SC daily(Should be held Thursday night; order in place) -Protonix 40 mg IV daily -SCDs
[2017-02-13] MEDS ORDERED: Iodixanol 320 MG/ML 100 ML BOTTLE IV ONE (09:18)
[2017-02-13] MEDS: Enoxaparin 40 mg Syringe SC SCH ×2 (10:16→10:31)
--- NOTE | 2017-02-13 10:59 | CT ---
PROCEDURE: CT Angiography of the neck with contrast HISTORY: right hemispheric stroke COMPARISON: None available. TECHNIQUE: Contiguous axial images of the neck were obtained from the level of the skull-base to the superior mediastinum in the arteriographic phase of enhancement. Coronal and sagittal reformats or also generated. IV contrast dose: Visipaque 320, 100 cc. Radiation Dose - DLP: 322 mGy-cm This CT exam was performed using one or more of the following dose reduction techniques: Automated exposure control, adjustment of the mA and/or kV according to patient size, and/or use of iterative reconstruction technique. FINDINGS: RIGHT CAROTID ARTERIES: Common Carotid Artery: Widely patent without significant stenosis. Carotid Bifurcation: Prominent atherosclerotic plaque is partially calcified at the distal bulb proximal to the origin of the right ICA. Internal Carotid Artery:Atherosclerotic plaque continues into the origin the right internal carotid artery resulting in a greater than 80 percent stenosis. External Carotid Artery (proximal branches): Normal. LEFT CAROTID ARTERIES: Common Carotid Artery: Patent throughout its bifurcation however there is a mild stenosis at the origin with limited atherosclerotic plaque identified there. Carotid Bifurcation: Mild atherosclerotic plaque seen in the bulb extending into the left ICA origin. Internal Carotid Artery:Approximate 40 to 50 percent stenosis seen at the proximal left ICA from the origin T1-2 cm distal to the origin. External Carotid Artery (proximal branches): Normal. VERTEBRAL ARTERIES: Right Vertebral Artery: Normal. Left Vertebral Artery: Normal. OTHER FINDINGS: Incidentally, the bilateral visualized cavernous internal carotid artery segments appear not to have any significant stenoses. IMPRESSION: 1. High-grade stenosis of the proximal right internal carotid artery is appreciated at its origin greater than 80 percent. No significant stenosis right common carotid artery. 2. 40-50 percent stenosis appreciated at the origin of the left internal carotid artery with remainder widely patent. 3. Widely patent bilateral common carotid arteries.
--- NOTE | 2017-02-13 11:03 | VASCLAB ---
PROCEDURE: HISTORY: left hemiphlegia,hemiparesis COMPARISON: None available. TECHNIQUE: Grayscale and duplex Doppler evaluation of the cervical carotid and vertebral arteries were performed. The common carotid, carotid bifurcations and cervical Internal Carotid Artery (ICA) and proximal External Carotid Artery (ECA) were evaluated. The vertebral arteries were evaluated for gross patency and flow direction. Report prepared by Luis Fernando Real, BS, RVT FINDINGS: RIGHT CAROTID ARTERIES: 1. Common Carotid Artery: No significant focal plaque formation of the right common carotid artery. Maximum Peak Systolic velocity: 39 cm/sec: End-diastolic velocity 8 cm/sec. 2. Carotid Bifurcation: plaque formation. Maximum Peak Systolic velocity: 38 cm/sec: End-diastolic velocity 9 cm/sec. 3. Internal Carotid Artery: Plaque description: 3.1. Proximal Segment: Peak systolic velocity 694 cm/sec: End-diastolic velocity 211 cm/sec - % stenosis 70-95% 3.2. Middle Segment: Peak systolic velocity 81 cm/sec: End-diastolic velocity 0 cm/sec - % stenosis 0-15% 3.3. Distal Segment: Peak systolic velocity 42 cm/sec: End-diastolic velocity 15 cm/sec - % stenosis 0-15% 4. External Carotid Artery: No significant focal plaque formation. Peak systolic velocity 149 cm/sec 5. ICA/CCA Ratio: 17.6 LEFT CAROTID ARTERIES: 1. Common Carotid Artery: No significant focal plaque formation of the left common carotid artery. Maximum Peak Systolic velocity: 86 cm/sec: End-diastolic velocity 25 cm/sec. 2. Carotid Bifurcation: plaque formation. Maximum Peak Systolic velocity: 83 cm/sec: End-diastolic velocity 29 cm/sec. 3. Internal Carotid Artery: Plaque description: 3.1. Proximal Segment: Peak systolic velocity 188 cm/sec: End-diastolic velocity 72 cm/sec - % stenosis 60-70% 3.2. Middle Segment: Peak systolic velocity 174 cm/sec: End-diastolic velocity 64 cm/sec - % stenosis 60-70% 3.3. Distal Segment: Peak systolic velocity 118 cm/sec: End-diastolic velocity 38 cm/sec - % stenosis 0-15% 4. External Carotid Artery: No significant focal plaque formation. Peak systolic velocity 93 cm/sec 5. ICA/CCA Ratio: 2.2 VERTEBRAL ARTERIES: 1. Right Vertebral Artery: The right vertebral artery flow direction is antegrade. 2. Left Vertebral Artery: The left vertebral artery flow direction is antegrade. OTHER FINDINGS: 1. Right Brachial Blood pressure: 158 mmHg. 2. Left Brachial Blood pressure: 146 mmHg. YOLI Robbins notified about the findings. IMPRESSION: RIGHT: 70-95% stenosis of the right proximal ICA with severe hemodynamic significance. LEFT: 60-70% stenosis of the left proximal and mid ICA with moderate hemodynamic significance.
--- NOTE | 2017-02-13 14:52 | HP ---
HISTORY OF PRESENT ILLNESS: A 61-year-old female who presented with a chief complaint of left-sided weakness. The patient came to the office, it was later found to have left sided weakness, advised to come to the emergency room immediately. The patient came to the ER for admission for possible stroke. The patient is a smoker. History of hypothyroidism. PHYSICAL EXAMINATION: GENERAL: The patient is awake, alert and oriented. VITAL SIGNS: Temperature is 98 and pulse 90. HEENT: Within normal limits. NECK: Supple. CHEST: Symmetrical. HEART: Regular. ABDOMEN: Soft. EXTREMITIES: No edema. left upper extremity 3/5 and lower extremity 4/5. IMPRESSION: The patient suffered probable cerebrovascular accident. The patient neuro check. Had a neurology evaluation . Giselle Urbina MD
[2017-02-14] MEDS ORDERED: Aluminum Hydroxide/Magnesium Hydroxide Susp (30 mL) PO ONE ×2 (00:45→02:00)
[2017-02-14] MEDS: Levothyroxine 75 MCG TAB PO SCH (05:29)
--- NOTE | 2017-02-14 09:54 | CP.PCM.PN ---
Subjective - Date & Time of Evaluation Date of Evaluation: 02/14/17 Time of Evaluation: 09:52 - Subjective Subjective: Vascular Surgery - Dr. York Pt S&E. TATIANA. Pt denies any complaints at this time. Her left sided weakness seems to be improving daily, today with good strength in the left side. She is aware of plan for surgery Thursday. No F/C, SOb/Cp. Objective - Vital Signs/Intake and Output Vital Signs (last 24 hours): Temp Pulse Resp BP Pulse Ox 97.7 F 76 20 146/74 99 02/14/17 07:00 02/14/17 07:00 02/14/17 07:00 02/14/17 07:00 02/14/17 07:00 Intake and Output: 02/14/17 02/14/17 06:59 18:59 Intake Total 480 Balance 480 - Medications Medications: Current Medications Acetaminophen (Tylenol 325mg Tab) 650 mg PO Q4H PRN PRN Reason: Pain, moderate (4-7) Aspirin (Aspirin) 325 mg PO DAILY [facility] Last Admin: 02/13/17 10:16 Dose: 325 mg Enoxaparin Sodium (Lovenox) 40 mg SC DAILY [facility] Last Admin: 02/13/17 10:31 Dose: Not Given Hydrochlorothiazide (Microzide) 12.5 mg PO DAILY [facility] Last Admin: 02/13/17 10:16 Dose: 12.5 mg Levothyroxine Sodium (Synthroid) 75 mcg PO DAILY@0630 [facility] Last Admin: 02/14/17 05:29 Dose: 75 mcg Lorazepam (Ativan) 1 mg PO Q8H [facility] Last Admin: 02/14/17 05:33 Dose: Not Given Pantoprazole Sodium (Protonix Inj) 40 mg IVP DAILY [facility] Last Admin: 02/13/17 10:16 Dose: 40 mg Rosuvastatin Calcium (Crestor) 10 mg PO HS [facility] Last Admin: 02/13/17 21:59 Dose: 10 mg - Labs Labs: 02/13/17 08:01 02/13/17 08:01 PT 11.2 SECONDS (9.7-12.2) 02/11/17 16:07 INR 1.0 02/11/17 16:07 APTT 30 SECONDS (21-34) 02/11/17 16:07 - Constitutional Appears: No Acute Distress - Head Exam Head Exam: ATRAUMATIC, NORMOCEPHALIC - Eye Exam Eye Exam: Normal appearance - Respiratory Exam Respiratory Exam: NORMAL BREATHING PATTERN. absent: Respiratory Distress - Cardiovascular Exam Cardiovascular Exam: REGULAR RHYTHM - Neurological Exam Neurological Exam: Alert, Oriented x3 Neuro motor strength exam: Left Upper Extremity: 4, Right Upper Extremity: 5, Left Lower Extremity: 4, Right Lower Extremity: 5 - Psychiatric Exam Psychiatric exam: Normal Affect, Normal Mood - Skin Skin Exam: Dry, Intact Assessment and Plan - Assessment and Plan (Free Text) Assessment: 61 F s/p R MCA stroke w/ R ICA stenosis 80% -OR Thursday for R CEA -Pre-op optimization -Continue care as per medical team DW Dr. Chela Rogers PGY3
[2017-02-14] MEDS: Enoxaparin 40 mg Syringe SC SCH ×2 (10:16→10:31)
[2017-02-15] MEDS: Levothyroxine 75 MCG TAB PO SCH (06:15)
[2017-02-15 07:21] LABS: BASO # 0.1 K/uL (0.0-0.2); BASO % 0.5 % (0.0-2.0); EOS # 0.2 K/uL (0.0-0.7); EOS % 1.3 % (0.0-4.0); LYMPH # 5.6 K/uL (1.0-4.3); LYMPH % 44.7 % (20.0-40.0); MEAN CORPUSCULAR HEMOGLOBIN 26.8 pg (27.0-31.0); MEAN CORPUSCULAR HGB CONC 32.7 g/dL (33.0-37.0); MEAN PLATELET VOLUME 7.7 fL (7.2-11.7); MONO # 1.2 K/uL (0.0-0.8); MONO % 9.7 % (0.0-10.0); RED CELL DISTRIBUTION WIDTH 14.9 % (11.5-14.5); WHITE BLOOD COUNT 12.5 K/uL (4.8-10.8)
[2017-02-15 08:08] LABS: BLOOD UREA NITROGEN 19 mg/dL (7-17); CARBON DIOXIDE 30 mmol/L (22-30); CHLORIDE 98 mmol/L (98-107); GFR AFRICAN-AMERICAN > 60; GLUCOSE,RANDOM 89 mg/dL (65-105); PHOSPHOROUS 4.7 mg/dL (2.5-4.5); POTASSIUM 3.9 mmol/L (3.6-5.2); SODIUM 141 mmol/L (132-148); TOTAL PROTEIN 6.8 g/dL (6.3-8.3)
[2017-02-15 08:09] LABS: ALB/GLOB RATIO 1.3 (1.0-2.1); ALKALINE PHOSPHATASE 55 U/L (38-126); ALT/SGPT 31 U/L (9-52); AST/SGOT 18 U/L (14-36); BILIRUBIN,TOTAL 0.4 mg/dL (0.2-1.3); CALCIUM 9.2 mg/dl (8.6-10.4); MAGNESIUM 1.9 mg/dL (1.6-2.3)
[2017-02-15] MEDS: Enoxaparin 40 mg Syringe SC SCH (09:14)
--- NOTE | 2017-02-15 09:48 | CP.PCM.PN ---
Subjective - Date & Time of Evaluation Date of Evaluation: 02/15/17 Time of Evaluation: 09:13 - Subjective Subjective: Surgery Progress note. Dr. York Pt seen and examined at bedside. No acute events overnight. No complaints. No N/ V/D. No CP/SOB. Sangeeta states that her left sided weakness is much improved. Objective - Vital Signs/Intake and Output Vital Signs (last 24 hours): Temp Pulse Resp BP Pulse Ox 98.1 F 66 20 121/68 97 02/15/17 07:40 02/15/17 07:40 02/15/17 07:40 02/15/17 07:40 02/15/17 07:40 Intake and Output: 02/15/17 02/15/17 06:59 18:59 Intake Total 660 Balance 660 - Medications Medications: Current Medications Acetaminophen (Tylenol 325mg Tab) 650 mg PO Q4H PRN PRN Reason: Pain, moderate (4-7) Aspirin (Aspirin) 325 mg PO DAILY [facility] Last Admin: 02/15/17 09:07 Dose: 325 mg Enoxaparin Sodium (Lovenox) 40 mg SC DAILY [facility] Last Admin: 02/15/17 09:14 Dose: Not Given Hydrochlorothiazide (Microzide) 12.5 mg PO DAILY [facility] Last Admin: 02/15/17 09:07 Dose: 12.5 mg Levothyroxine Sodium (Synthroid) 75 mcg PO DAILY@0630 [facility] Last Admin: 02/15/17 06:15 Dose: 75 mcg Lorazepam (Ativan) 1 mg PO Q8H [facility] Last Admin: 02/15/17 06:15 Dose: 1 mg Pantoprazole Sodium (Protonix Inj) 40 mg IVP DAILY [facility] Last Admin: 02/15/17 09:07 Dose: 40 mg Rosuvastatin Calcium (Crestor) 10 mg PO HS [facility] Last Admin: 02/14/17 21:30 Dose: 10 mg - Labs Labs: 02/15/17 07:16 02/15/17 07:16 PT 11.0 SECONDS (9.7-12.2) 02/15/17 07:16 INR 1.0 02/15/17 07:16 APTT 28 SECONDS (21-34) 02/15/17 07:16 - Constitutional Appears: Well, No Acute Distress - Head Exam Head Exam: ATRAUMATIC, NORMAL INSPECTION, NORMOCEPHALIC - Eye Exam Eye Exam: EOMI - ENT Exam ENT Exam: Mucous Membranes Moist - Neck Exam Neck Exam: Full ROM - Respiratory Exam Respiratory Exam: NORMAL BREATHING PATTERN. absent: Rhonchi, Wheezes, Respiratory Distress - Cardiovascular Exam Cardiovascular Exam: absent: JVD - GI/Abdominal Exam GI & Abdominal Exam: Soft. absent: Distended, Firm, Guarding, Rigid, Tenderness - Extremities Exam Extremities Exam: Full ROM. absent: Calf Tenderness - Neurological Exam Neurological Exam: Alert, Awake Neuro motor strength exam: Left Upper Extremity: 5, Right Upper Extremity: 5, Left Lower Extremity: 5, Right Lower Extremity: 5 - Psychiatric Exam Psychiatric exam: Normal Affect, Normal Mood - Skin Skin Exam: Dry, Intact, Normal Color, Warm Assessment and Plan - Assessment and Plan (Free Text) Assessment: 61yo F with R MCA stroke w/ R ICA stenosis 80% - Patient to obtain Cardiac CATH tomorrow (02/16) afternoon by Dr. Damon - OR for CEA tentatively postponed to Thursday, 02/17 - Continue to medically maximize Discussed case with Dr. York. Further recs as per Dr. Chela Kwan PGY1 surgery pager: [phone]
--- NOTE | 2017-02-15 20:48 | CP.PCM.CON ---
History of Present Illness - History of Present Illness History of Present Illness: CC: Pre Op cardiac risk assessment Patient is a 61 year old female with a past medical history of HTN, hypothyroidism and anxiety, who was sent to the [facility] ED by her PMD ( Dr. Urbina) for evaluation of left-sided hemiparesis. Patient states the left- sided weakness began 4 days ago when she was in bed and prompted her to visit her PMD. Patient states that she had imaging done "in the vessels of her neck," which showed occlusion but patient is unsure to which degree. Patient also reports having changes in vision and seeing floaters for which she has an appointment next week for laser surgery. She reports that she believes her symptoms started with the vision changes, followed by the left-sided weakness. Patient currently denies chest pain, abdominal pain, nausea, vomiting, fevers, and headaches. PMD: Dr. Urbina PMH: HTN (uncontrolled), hypothyroidism, anxiety PSHx: Cholecystectomy Family Hx: Type 2 diabetes, HTN, "heart problems" Social: Tobacco: 1 ppd x40 years, denies alcohol and drug use Allergies: Iodine (anaphylaxis), fish Medications: Synthroid, Lorazepam, HCTZ (see EMR) Review of Systems - Constitutional Constitutional: Weakness. absent: Headache - EENT Eyes: Change in Vision, Floaters, Spots in Vision Ears: absent: Dizziness - Cardiovascular Cardiovascular: absent: Chest Pain, Dyspnea, Lightheadedness - Respiratory Respiratory: absent: Dyspnea - Gastrointestinal Gastrointestinal: absent: Abdominal Pain, Constipation, Diarrhea, Nausea, Vomiting - Musculoskeletal Additional comments: left sided weakness - Neurological Neurological: Weakness, Other Visual Disturbances. absent: Abnormal Speech, Dizziness, Headaches - Psychiatric Psychiatric: Anxiety Meds Allergies/Adverse Reactions: Allergies Allergy/AdvReac Type Severity Reaction Status Date / Time iodine Allergy Verified 02/11/17 15:34 - Medications Medications: Current Medications Acetaminophen (Tylenol 325mg Tab) 650 mg PO Q4H PRN PRN Reason: Pain, moderate (4-7) Aspirin (Aspirin) 325 mg PO DAILY [facility] Last Admin: 02/12/17 09:09 Dose: 325 mg Enoxaparin Sodium (Lovenox) 40 mg SC DAILY [facility] Last Admin: 02/12/17 09:09 Dose: Not Given Hydrochlorothiazide (Microzide) 12.5 mg PO DAILY [facility] Last Admin: 02/12/17 09:09 Dose: 12.5 mg Levothyroxine Sodium (Synthroid) 75 mcg PO DAILY@0630 [facility] Last Admin: 02/12/17 06:08 Dose: 75 mcg Lorazepam (Ativan) 1 mg PO Q8H [facility] Last Admin: 02/12/17 06:31 Dose: 1 mg Pantoprazole Sodium (Protonix Inj) 40 mg IVP DAILY [facility] Rosuvastatin Calcium (Crestor) 10 mg PO HS [facility] Last Admin: 02/11/17 22:30 Dose: 10 mg Physical Exam - Head Exam Head Exam: ATRAUMATIC, NORMAL INSPECTION - Eye Exam Eye Exam: EOMI, Normal appearance - ENT Exam ENT Exam: Mucous Membranes Moist - Respiratory Exam Respiratory Exam: Decreased Breath Sounds, Clear to Auscultation Bilateral. absent: Rhonchi, Wheezes - Cardiovascular Exam Cardiovascular Exam: REGULAR RHYTHM, +S1, +S2 - GI/Abdominal Exam GI & Abdominal Exam: Soft. absent: Distended, Firm, Tenderness - Extremities Exam Extremities exam: Positive for: pedal pulses present. Negative for: pedal edema , tenderness - Neurological Exam Neurological exam: Alert, CN II-XII Intact, Normal Gait, Oriented x3 Additional comments: Right UE & LE strength: 5/5 Left UE & LE strength: 3/5 - Psychiatric Exam Psychiatric exam: Normal Affect, Normal Mood - Skin Skin Exam: Dry, Intact, Normal Color, Warm Past Patient History - Past Medical History & Family History Past Medical History?: Yes - Past Social History Smoking Status: Heavy Smoker > 10 Cigarettes Daily - CARDIAC Hx Cardiac Disorders: Yes Hx Hypertension: Yes - PULMONARY Hx Respiratory Disorders: Yes Hx Asthma: Yes - NEUROLOGICAL Hx Neurological Disorder: No - HEENT Hx HEENT Problems: Yes Other/Comment: some occasional loss of vision in right eye - RENAL Hx Chronic Kidney Disease: No - ENDOCRINE/METABOLIC Hx Endocrine Disorders: Yes Hx Hyperthyroidism: Yes - HEMATOLOGICAL/ONCOLOGICAL Hx Blood Disorders: No - INTEGUMENTARY Hx Dermatological Problems: No - MUSCULOSKELETAL/RHEUMATOLOGICAL Hx Musculoskeletal Disorders: No Hx Falls: No - GASTROINTESTINAL Hx Gastrointestinal Disorders: No - GENITOURINARY/GYNECOLOGICAL Hx Genitourinary Disorders: No - PSYCHIATRIC Hx Psychophysiologic Disorder: No Hx Substance Use: No - SURGICAL HISTORY Hx Surgeries: No - ANESTHESIA Hx Anesthesia: Yes Hx Anesthesia Reactions: Yes (nausea/vomiting) Meds Allergies/Adverse Reactions: Allergies Allergy/AdvReac Type Severity Reaction Status Date / Time iodine Allergy Verified 02/11/17 15:34 - Medications Medications: Current Medications Acetaminophen (Tylenol 325mg Tab) 650 mg PO Q4H PRN PRN Reason: Pain, moderate (4-7) Aspirin (Aspirin) 325 mg PO DAILY [facility] Last Admin: 02/15/17 09:07 Dose: 325 mg Enoxaparin Sodium (Lovenox) 40 mg SC DAILY [facility] Last Admin: 02/15/17 09:14 Dose: Not Given Hydrochlorothiazide (Microzide) 12.5 mg PO DAILY [facility] Last Admin: 02/15/17 09:07 Dose: 12.5 mg Levothyroxine Sodium (Synthroid) 75 mcg PO DAILY@0630 [facility] Last Admin: 02/15/17 06:15 Dose: 75 mcg Lorazepam (Ativan) 1 mg PO Q8H [facility] Last Admin: 02/15/17 14:14 Dose: 1 mg Pantoprazole Sodium (Protonix Inj) 40 mg IVP DAILY [facility] Last Admin: 02/15/17 09:07 Dose: 40 mg Rosuvastatin Calcium (Crestor) 40 mg PO [facility] Results - Vital Signs Recent Vital Signs: Last Vital Signs Temp 98.1 F 02/15/17 07:40 Pulse 71 02/15/17 13:02 Resp 20 02/15/17 07:40 BP 121/68 02/15/17 07:40 Pulse Ox 97 02/15/17 13:02 - Labs Result Diagrams: 02/15/17 07:16 02/15/17 07:16 Labs: Laboratory Results - last 24 hr 02/15/17 02/15/17 02/15/17 07:16 07:16 07:16 WBC 12.5 H RBC 5.13 Hgb 13.8 Hct 42.0 MCV 82.0 MCH 26.8 L MCHC 32.7 L RDW 14.9 H Plt Count 300 MPV 7.7 Neut % (Auto) 43.8 L Lymph % (Auto) 44.7 H Stanley % (Auto) 9.7 Eos % (Auto) 1.3 Baso % (Auto) 0.5 Neut # 5.5 Lymph # 5.6 H Stanley # 1.2 H Eos # 0.2 Baso # 0.1 PT 11.0 INR 1.0 APTT 28 Sodium 141 Potassium 3.9 Chloride 98 Carbon Dioxide 30 Anion Gap 17 BUN 19 H Creatinine 0.7 Est GFR ( Amer) > 60 Est GFR (Non-Af Amer) > 60 Random Glucose 89 Calcium 9.2 Phosphorus 4.7 H Magnesium 1.9 Total Bilirubin 0.4 AST 18 ALT 31 Alkaline Phosphatase 55 Total Protein 6.8 Albumin 3.8 Globulin 3.0 Albumin/Globulin Ratio 1.3 Assessment & Plan - Assessment and Plan (Free Text) Assessment: 61 F Heavy tobacco use CVA Carotid artery disease Hyperglycemia Hyperlipidemia Needs per Op cardiac risk assessment Not a candidate for stress High likely ambrose of CAD Recommend cath D/W Patient and family at bedside Explained the benefits and the risks of cath Patient agreed to undergo cath
[2017-02-16] MEDS: Levothyroxine 75 MCG TAB PO SCH (06:26)
[2017-02-16] MEDS ORDERED: HEPARIN-NS 5,000 UNITS/500 ML 0 UNIT/0 ML BAG IV ONE (07:28)
[2017-02-16 07:30] LABS: BASO # 0.1 K/uL (0.0-0.2); BASO % 0.4 % (0.0-2.0); EOS # 0.3 K/uL (0.0-0.7); EOS % 2.1 % (0.0-4.0); HEMATOCRIT 42.1 % (34.0-47.0); LYMPH # 5.1 K/uL (1.0-4.3); MEAN CELL VOLUME 81.4 fL (81.0-99.0); MEAN CORPUSCULAR HEMOGLOBIN 27.3 pg (27.0-31.0); MEAN CORPUSCULAR HGB CONC 33.5 g/dL (33.0-37.0); MEAN PLATELET VOLUME 7.6 fL (7.2-11.7); MONO # 1.3 K/uL (0.0-0.8); RED CELL DISTRIBUTION WIDTH 14.6 % (11.5-14.5); WHITE BLOOD COUNT 13.3 K/uL (4.8-10.8)
--- NOTE | 2017-02-16 07:47 | CP.PCM.PN ---
Subjective - Date & Time of Evaluation Date of Evaluation: 02/16/17 Time of Evaluation: 07:40 - Subjective Subjective: Patient was seen and examined at bedside. Patient in no acute distress and has no complaints. 12 point review of systems otherwise negative. Objective - Vital Signs/Intake and Output Vital Signs (last 24 hours): Temp Pulse Resp BP Pulse Ox 97.5 F L 61 20 129/70 97 02/16/17 05:48 02/16/17 05:48 02/16/17 05:48 02/16/17 05:48 02/16/17 05:48 Intake and Output: 02/16/17 02/16/17 06:59 18:59 Intake Total 420 Balance 420 - Medications Medications: Current Medications Acetaminophen (Tylenol 325mg Tab) 650 mg PO Q4H PRN PRN Reason: Pain, moderate (4-7) Aspirin (Aspirin) 325 mg PO DAILY [facility] Last Admin: 02/15/17 09:07 Dose: 325 mg Enoxaparin Sodium (Lovenox) 40 mg SC DAILY [facility] Last Admin: 02/15/17 09:14 Dose: Not Given Hydrochlorothiazide (Microzide) 12.5 mg PO DAILY [facility] Last Admin: 02/15/17 09:07 Dose: 12.5 mg Levothyroxine Sodium (Synthroid) 75 mcg PO DAILY@0630 [facility] Last Admin: 02/16/17 06:26 Dose: 75 mcg Lorazepam (Ativan) 1 mg PO Q8H [facility] Last Admin: 02/16/17 06:26 Dose: 1 mg Pantoprazole Sodium (Protonix Inj) 40 mg IVP DAILY [facility] Last Admin: 02/15/17 09:07 Dose: 40 mg Rosuvastatin Calcium (Crestor) 40 mg PO HS [facility] Last Admin: 02/15/17 21:37 Dose: 40 mg - Labs Labs: 02/16/17 07:11 02/15/17 07:16 PT 11.0 SECONDS (9.7-12.2) 02/16/17 07:11 INR 1.0 02/16/17 07:11 APTT 29 SECONDS (21-34) 02/16/17 07:11 - Head Exam Head Exam: ATRAUMATIC, NORMAL INSPECTION - Eye Exam Eye Exam: EOMI, Normal appearance - ENT Exam ENT Exam: Mucous Membranes Moist - Respiratory Exam Respiratory Exam: Clear to Ausculation Bilateral, NORMAL BREATHING PATTERN. absent: Rales, Rhonchi, Wheezes - Cardiovascular Exam Cardiovascular Exam: REGULAR RHYTHM, +S1, +S2 - GI/Abdominal Exam GI & Abdominal Exam: Soft, Normal Bowel Sounds. absent: Distended, Firm, Tenderness - Extremities Exam Extremities Exam: Normal Inspection. absent: Pedal Edema - Neurological Exam Neurological Exam: Alert, Awake, Oriented x3 - Psychiatric Exam Psychiatric exam: Normal Affect, Normal Mood - Skin Skin Exam: Dry, Intact, Normal Color, Warm Assessment and Plan - Assessment and Plan (Free Text) Assessment: 61 year old female with 80% stenosis of RCA. - Patient to remain NPO for cardiac cath scheduled for today. - Scheduled for OR for CEA tomorrow. - Continue medical management as per hospitalist team.
[2017-02-16 08:12] LABS: CHLORIDE 100 mmol/L (98-107)
[2017-02-16 08:13] LABS: SODIUM 139 mmol/L (132-148)
[2017-02-16 08:15] LABS: ALB/GLOB RATIO 1.3 (1.0-2.1); AST/SGOT 29 U/L (14-36); BILIRUBIN,TOTAL 0.5 mg/dL (0.2-1.3); CARBON DIOXIDE 27 mmol/L (22-30); GFR AFRICAN-AMERICAN > 60; TOTAL PROTEIN 7.1 g/dL (6.3-8.3)
[2017-02-16 08:16] LABS: ALKALINE PHOSPHATASE 54 U/L (38-126); ALT/SGPT 51 U/L (9-52); BLOOD UREA NITROGEN 18 mg/dL (7-17); GLUCOSE,RANDOM 87 mg/dL (65-105); MAGNESIUM 1.9 mg/dL (1.6-2.3); PHOSPHOROUS 3.8 mg/dL (2.5-4.5)
--- NOTE | 2017-02-16 10:03 | CP.PCM.PN ---
Subjective - Date & Time of Evaluation Date of Evaluation: 02/16/17 Time of Evaluation: 07:25 - Subjective Subjective: PGY2 Medicine Note- Dr. Urbina's service Pt seen and examined. No overnight events per nursing. She is nervous for her cardiac cath later today and Carotid endarterectomy (CEA) tomorrow. and son were at bedside and daughter called on phone. Spoke to family at length regarding today and tomorrows procedures. Patient is comfortable, chest pain, palpitations, dizziness, nausea, vomiting, diarrhea, constipation or any additional complaints. Objective - Vital Signs/Intake and Output Vital Signs (last 24 hours): Temp Pulse Resp BP Pulse Ox 97.6 F 73 18 147/78 97 02/16/17 07:45 02/16/17 07:45 02/16/17 07:45 02/16/17 07:45 02/16/17 07:45 Intake and Output: 02/16/17 02/16/17 06:59 18:59 Intake Total 420 Balance 420 - Medications Medications: Current Medications Acetaminophen (Tylenol 325mg Tab) 650 mg PO Q4H PRN PRN Reason: Pain, moderate (4-7) Aspirin (Aspirin) 325 mg PO DAILY [facility] Last Admin: 02/15/17 09:07 Dose: 325 mg Enoxaparin Sodium (Lovenox) 40 mg SC DAILY [facility] Last Admin: 02/15/17 09:14 Dose: Not Given Hydrochlorothiazide (Microzide) 12.5 mg PO DAILY [facility] Last Admin: 02/15/17 09:07 Dose: 12.5 mg Levothyroxine Sodium (Synthroid) 75 mcg PO DAILY@0630 [facility] Last Admin: 02/16/17 06:26 Dose: 75 mcg Lorazepam (Ativan) 1 mg PO Q8H [facility] Last Admin: 02/16/17 06:26 Dose: 1 mg Pantoprazole Sodium (Protonix Inj) 40 mg IVP DAILY [facility] Last Admin: 02/15/17 09:07 Dose: 40 mg Rosuvastatin Calcium (Crestor) 40 mg PO HS [facility] Last Admin: 02/15/17 21:37 Dose: 40 mg - Labs Labs: 02/16/17 07:11 02/16/17 07:11 PT 11.0 SECONDS (9.7-12.2) 02/16/17 07:11 INR 1.0 02/16/17 07:11 APTT 29 SECONDS (21-34) 02/16/17 07:11 - Additional Findings Additional findings: - Constitutional Appears: Non-toxic, No Acute Distress - Head Exam Head Exam: ATRAUMATIC, NORMAL INSPECTION, NORMOCEPHALIC - Eye Exam Eye Exam: EOMI, Normal appearance, PERRL Pupil Exam: NORMAL ACCOMODATION, PERRL - ENT Exam ENT Exam: Mucous Membranes Moist - Respiratory Exam Respiratory Exam: NORMAL BREATHING PATTERN. absent: Wheezes - Cardiovascular Exam Cardiovascular Exam: +S1, +S2 - GI/Abdominal Exam GI & Abdominal Exam: Soft, Normal Bowel Sounds - Extremities Exam Extremities Exam: Calf Tenderness, Full ROM, Normal Capillary Refill. absent: Pedal Edema - Back Exam Back Exam: Full ROM - Neurological Exam Neurological Exam: Alert, Awake, CN II-XII Intact, Oriented x3 - Psychiatric Exam Psychiatric exam: Normal Affect, Normal Mood - Skin Skin Exam: Dry, Normal Color, Warm Assessment and Plan - Assessment and Plan (Free Text) Assessment: Left sided hemeparesis 02/16: Patient given prophylactic Solumedrol 40mg IVP once and Benadryl 50mg IVP once - prior to cath, 2/2 iodine allergy. To continue Benadryl 50mg PO Q6H x48hrs to mitigate allergic reaction. 02/16: Patient NPO for cardiac cath Today. Scheduled for OR for Carotid endarterectomy (CEA) tomorrow. Carotid dopplers Right: 70-95% of the right proximal ICA with severe hemodynamic significance; left: 60-70% stenosis of left proximal and mid ICA with moderte hemodynamic significance. CTA confirms findings. Refer to full report. -MRI brain: suspected right MCA territory infarction -ASA 325 daily with Crestor 10 mg HS -F/U Neuro reccs -F/U Vascular Surgery recs- Patient to OR on Thursday for endarterectomy -ekg shows nsr -tylenol for pain Hypothyroidism Continue synthroid 75 mcg daily HTN Cont HCTZ 12.5 mg po daily Hypercholesterolemia Crestor 10mg PO HS Anxiety On Lorazapam Q8H Prophylaxis -Lovenox 40 mg SC daily(Should be held Thursday night; order in place) -Protonix 40 mg IV daily -SCDs
[2017-02-16] MEDS ORDERED: MethylPREDNISolone 40 mg Vial IVP STA (10:09)
[2017-02-16] MEDS ORDERED: DiphenhydrAMINE 50 mg/ml Inj IVP STA (10:09)
[2017-02-16] MEDS ORDERED: DiphenhydrAMINE 50 mg/ml Inj IVP SCH (14:00)
[2017-02-16] MEDS ORDERED: Midazolam 2 MG/2 ML VIAL ONE (15:57)
[2017-02-16] MEDS ORDERED: Iodixanol 320 MG/ML 100 ML BOTTLE IV ONE (15:57)
--- NOTE | 2017-02-16 16:38 | CP.PCM.PN ---
Subjective - Date & Time of Evaluation Date of Evaluation: 02/16/17 Time of Evaluation: 16:35 - Subjective Subjective: Patient s/p Cath 1. L. Main: Patent 2. LAD/Diags: LAD patent, Diag proximal 70% stenosis 3. L Cx: Patent 4. RCA: Small caliber artery. Mid 60% stenosis 5. LV: EF 70%, EDP 23, No AV gradient Impression: Non Obstructive CAD Normal EF This patient assessed as low to intermediate risk for cardiac events for CEA under general anaesthesia Since benefit outweighs the risk, recommend to proceed with CEA Objective - Vital Signs/Intake and Output Vital Signs (last 24 hours): Temp Pulse Resp BP Pulse Ox 97.6 F 78 18 156/95 H 97 02/16/17 07:45 02/16/17 12:04 02/16/17 07:45 02/16/17 12:04 02/16/17 07:45 Intake and Output: 02/16/17 02/16/17 06:59 18:59 Intake Total 420 Balance 420 - Medications Medications: Current Medications Acetaminophen (Tylenol 325mg Tab) 650 mg PO Q4H PRN PRN Reason: Pain, moderate (4-7) Aspirin (Aspirin) 325 mg PO DAILY [facility] Last Admin: 02/15/17 09:07 Dose: 325 mg Diphenhydramine HCl (Benadryl) 50 mg PO Q6H [facility] Enoxaparin Sodium (Lovenox) 40 mg SC DAILY [facility] Last Admin: 02/15/17 09:14 Dose: Not Given Hydrochlorothiazide (Microzide) 12.5 mg PO DAILY [facility] Last Admin: 02/16/17 11:34 Dose: 12.5 mg Levothyroxine Sodium (Synthroid) 75 mcg PO DAILY@0630 [facility] Last Admin: 02/16/17 06:26 Dose: 75 mcg Lorazepam (Ativan) 1 mg PO Q8H [facility] Last Admin: 02/16/17 06:26 Dose: 1 mg Pantoprazole Sodium (Protonix Inj) 40 mg IVP DAILY [facility] Last Admin: 02/16/17 11:00 Dose: 40 mg Rosuvastatin Calcium (Crestor) 40 mg PO HS [facility] Last Admin: 02/15/17 21:37 Dose: 40 mg - Labs Labs: 02/16/17 07:11 02/16/17 07:11 PT 11.0 SECONDS (9.7-12.2) 02/16/17 07:11 INR 1.0 02/16/17 07:11 APTT 29 SECONDS (21-34) 02/16/17 07:11
[2017-02-16] MEDS ORDERED: Sodium Chloride 0.9% 1,000 ML IV SCH (17:45)
[2017-02-17] MEDS: Levothyroxine 75 MCG TAB PO SCH (05:31)
[2017-02-17 07:00] LABS: BASO % 0.2 % (0.0-2.0); EOS % 0.1 % (0.0-4.0); HEMATOCRIT 42.3 % (34.0-47.0); LYMPH % 10.6 % (20.0-40.0); MEAN CELL VOLUME 82.6 fL (81.0-99.0); MEAN CORPUSCULAR HEMOGLOBIN 27.1 pg (27.0-31.0); MEAN CORPUSCULAR HGB CONC 32.8 g/dL (33.0-37.0); MEAN PLATELET VOLUME 8.2 fL (7.2-11.7); MONO # 1.5 K/uL (0.0-0.8); RED CELL DISTRIBUTION WIDTH 14.5 % (11.5-14.5)
[2017-02-17 07:21] LABS: CHLORIDE 101 mmol/L (98-107); SODIUM 140 mmol/L (132-148)
[2017-02-17 07:23] LABS: ALB/GLOB RATIO 1.3 (1.0-2.1); AST/SGOT 125 U/L (14-36); BILIRUBIN,TOTAL 0.6 mg/dL (0.2-1.3); CARBON DIOXIDE 28 mmol/L (22-30); GFR AFRICAN-AMERICAN > 60; TOTAL PROTEIN 7.3 g/dL (6.3-8.3)
[2017-02-17 07:24] LABS: ALKALINE PHOSPHATASE 55 U/L (38-126); ALT/SGPT 188 U/L (9-52); BLOOD UREA NITROGEN 25 mg/dL (7-17); GLUCOSE,RANDOM 135 mg/dL (65-105); PHOSPHOROUS 3.3 mg/dL (2.5-4.5)
[2017-02-17] MEDS ORDERED: HEPARIN-NS 5,000 UNITS/500 ML 5,000 UNIT/500 ML BAG IV ONE (10:34)
[2017-02-17] MEDS ORDERED: Thrombin Topical 20,000 Intl Units Spray Kit TOP ONE (10:34)
[2017-02-17] MEDS ORDERED: Lidocaine 1% Inj (20ml) ONE (10:34)
[2017-02-17] MEDS ORDERED: ceFAZolin IV 2 gm in Dextrose 0 GM/0 ML BAG IVPB ONE (10:35)
--- NOTE | 2017-02-17 10:37 | CP.PCM.PN ---
Subjective - Date & Time of Evaluation Date of Evaluation: 02/17/17 Time of Evaluation: 07:45 - Subjective Subjective: PGY2 Medicine Note- Dr. Urbina's service Pt seen and examined. No overnight events per nursing. s/p cardiac cath later on 02/16 with no major occlusion. Plan for Carotid endarterectomy (CEA) today . Patient is comfortable, and denies chest pain, palpitations, dizziness, nausea, vomiting, diarrhea, constipation or any additional complaints. Objective - Vital Signs/Intake and Output Vital Signs (last 24 hours): Temp Pulse Resp BP Pulse Ox 97.9 F 92 H 20 144/84 99 02/17/17 07:50 02/17/17 07:50 02/17/17 07:50 02/17/17 07:50 02/17/17 07:50 Intake and Output: 02/17/17 02/17/17 06:59 18:59 Intake Total 970 Balance 970 - Medications Medications: Current Medications Acetaminophen (Tylenol 325mg Tab) 650 mg PO Q4H PRN PRN Reason: Pain, moderate (4-7) Acetaminophen (Tylenol 325mg Tab) 650 mg PO Q6 PRN PRN Reason: Pain, Mild (1-3) Aspirin (Aspirin) 325 mg PO DAILY [facility] Last Admin: 02/17/17 09:24 Dose: 325 mg Diphenhydramine HCl (Benadryl) 50 mg PO Q6H [facility] Last Admin: 02/17/17 09:25 Dose: 50 mg Enoxaparin Sodium (Lovenox) 40 mg SC DAILY [facility] Last Admin: 02/15/17 09:14 Dose: Not Given Hydrochlorothiazide (Microzide) 12.5 mg PO DAILY [facility] Last Admin: 02/17/17 09:24 Dose: 12.5 mg Levothyroxine Sodium (Synthroid) 75 mcg PO DAILY@0630 [facility] Last Admin: 02/17/17 05:31 Dose: 75 mcg Lorazepam (Ativan) 1 mg PO Q8H [facility] Last Admin: 02/17/17 05:31 Dose: 1 mg Pantoprazole Sodium (Protonix Inj) 40 mg IVP DAILY [facility] Last Admin: 02/17/17 09:25 Dose: 40 mg Rosuvastatin Calcium (Crestor) 40 mg PO HS [facility] Last Admin: 02/16/17 22:15 Dose: 40 mg - Labs Labs: 02/17/17 06:45 02/17/17 06:45 PT 11.0 SECONDS (9.7-12.2) 02/16/17 07:11 INR 1.0 02/16/17 07:11 APTT 29 SECONDS (21-34) 02/16/17 07:11 - Additional Findings Additional findings: - Constitutional Appears: Non-toxic, No Acute Distress - Head Exam Head Exam: ATRAUMATIC, NORMAL INSPECTION, NORMOCEPHALIC - Eye Exam Eye Exam: EOMI, Normal appearance, PERRL Pupil Exam: NORMAL ACCOMODATION, PERRL - ENT Exam ENT Exam: Mucous Membranes Moist - Respiratory Exam Respiratory Exam: NORMAL BREATHING PATTERN. absent: Wheezes - Cardiovascular Exam Cardiovascular Exam: Regular Rate, +S1, +S2 - GI/Abdominal Exam GI & Abdominal Exam: Soft, Normal Bowel Sounds - Extremities Exam Extremities Exam: Calf Tenderness, Full ROM, Normal Capillary Refill. absent: Pedal Edema - Back Exam Back Exam: Full ROM - Neurological Exam Neurological Exam: Alert, Awake, CN II-XII Intact, Oriented x3 - Psychiatric Exam Psychiatric exam: Normal Affect, Normal Mood - Skin Skin Exam: Dry, Normal Color, Warm s/p cardiac cath - groin incision CDI Assessment and Plan - Assessment and Plan (Free Text) Assessment: Left sided hemeparesis 02/17: patient received Carotid endarterectomy (CEA) today with Dr. York. 02/16: Patient given prophylactic Solumedrol 40mg IVP once and Benadryl 50mg IVP once - prior to cath, 2/2 iodine allergy. To continue Benadryl 50mg PO Q6H x48hrs to mitigate allergic reaction. 02/16: Patient NPO for cardiac cath Today. Scheduled for OR for Carotid endarterectomy (CEA) tomorrow. Carotid dopplers Right: 70-95% of the right proximal ICA with severe hemodynamic significance; left: 60-70% stenosis of left proximal and mid ICA with moderte hemodynamic significance. CTA confirms findings. Refer to full report. -MRI brain: suspected right MCA territory infarction -ASA 325 daily with Crestor 10 mg HS -F/U Neuro reccs -F/U Vascular Surgery recs- Patient to OR on Thursday for endarterectomy -ekg shows nsr -tylenol for pain Hypothyroidism Continue synthroid 75 mcg daily HTN 9/12: BP 144/84. continue to monitor. Cont HCTZ 12.5 mg po daily Hypercholesterolemia 02/17: AST 125 / ALT 188 today (normal yesterday). Continue to trend. If remains elevated, stop Crestor. 02/16: cardiac cath with Dr. Damon: Non Obstructive CAD, EF 70%, LAD 70% stenosis. See full report. Crestor 10mg PO HS Anxiety On Lorazapam Q8H Prophylaxis -Lovenox 40 mg SC daily(Should be held Thursday; order in place) -Protonix 40 mg IV daily -SCDs
[2017-02-17] MEDS ORDERED: Lactated Ringer's 1,000 ML IV ONE ×5 (11:52→13:59)
[2017-02-17] MEDS ORDERED: Etomidate 20 mg/10ml Inj IV ONE (11:53)
[2017-02-17] MEDS ORDERED: Phenylephrine 10 mg/ml Inj ONE (11:53)
[2017-02-17] MEDS ORDERED: Midazolam 2 MG/2 ML VIAL ONE (11:56)
[2017-02-17] MEDS ORDERED: Sodium Chloride 0.9% 500 ML IV ONE (12:00)
[2017-02-17] MEDS ORDERED: Propofol 10 mg/ml Inj (20 ML) ONE (12:03)
[2017-02-17] MEDS ORDERED: Nitroglycerin 50mg in D5W 0 MG/0 ML BOTTLE IV ONE (12:21)
[2017-02-17] MEDS ORDERED: ceFAZolin IV 1 gm in Dextrose 1 GM/50 ML BAG IVPB ONE (12:34)
[2017-02-17] MEDS ORDERED: Rocuronium 10 mg/ml (5 ml) ONE (12:40)
--- NOTE | 2017-02-17 15:10 | PCM.SURG1 ---
Surgeon's Initial Post Op Note - Surgeon's Notes Surgeon: Dr. York Pre Press Manager: Dr. Addie Waterman Type of Anesthesia: General Endo Pre-Operative Diagnosis: Right carotid artery stenosis Operative Findings: Right carotid artery stenosis Post-Operative Diagnosis: Right carotid artery stenosis Operation Performed: Right Carotid Artery Endarterectomy with drain Specimen/Specimens Removed: Right carotid artery plaque Estimated Blood Loss: EBL {In ML}: 150 Blood Products Given: N/A Date of Surgery/Procedure: 02/17/17 Time of Surgery/Procedure: 11:30
[2017-02-17] MEDS ORDERED: HYDROmorphone 0.5 mg/0.5 ml ISec IVP PRN (15:27)
[2017-02-17] MEDS ORDERED: DOPamine 400mg/250ml D5W 400 MG/250 ML BAG IV PRN (15:32)
[2017-02-17] MEDS ORDERED: Nitroglycerin 2% Ointment Foilpak UD TOP PRN ×2 (15:56→16:02)
--- NOTE | 2017-02-17 18:31 | CP.PCM.CON ---
<Sabino Cardenas Ninfa - Last Filed: 02/17/17 18:29> History of Present Illness - History of Present Illness History of Present Illness: 61 y/o female with PMHx of thyroid disease and HTN. States that several days ago , she began having discomfort in her leg left, and trouble walking, which resolved that day. The day after she noticed discomfort and weakness of the left arm. This was followed by a mild headache and blurred vision, which patient originally attributed to need for glasses Rx change. Started to become concerned about the symptoms and went to PMD. Saw Dr. Urbina today, and was sent to ED for evaluation of possible stroke vs. cervical cord compression. No chest pain, shortness of breath, change in appetite, or altered mental status. Carotid doppler was done in the office and according to him showed a 50-70% occlusion. Today 02/17/17 patient is s/p Right Carotid Artery Endarterectomy with drain and is being admitted to ICU for monitoring. PMD: Dr. Urbina PMH: HTN, hypothyroidism, anxiety PSHx: Cholecystectomy Family Hx: Type 2 diabetes, HTN, "heart problems" Social: Tobacco: 1 ppd x 40 years, denies alcohol and drug use. Born in [place]. Allergies: Iodine (anaphylaxis), fish Medications: Synthroid, Lorazepam, HCTZ Review of Systems - Constitutional Constitutional: absent: Chills, Fever - EENT Eyes: Change in Vision - Cardiovascular Cardiovascular: absent: Chest Pain - Respiratory Respiratory: absent: Cough, Dyspnea, Hemoptysis - Gastrointestinal Gastrointestinal: absent: Abdominal Pain, Constipation, Diarrhea - Genitourinary Genitourinary: absent: Dysuria - Musculoskeletal Musculoskeletal: Muscle Weakness Additional comments: Weakness (of the left arm and leg) Past Patient History - Past Medical History & Family History Past Medical History?: Yes - Past Social History Smoking Status: Heavy Smoker > 10 Cigarettes Daily - CARDIAC Hx Cardiac Disorders: Yes Hx Hypertension: Yes - PULMONARY Hx Respiratory Disorders: Yes Hx Asthma: Yes - NEUROLOGICAL Hx Neurological Disorder: No - HEENT Hx HEENT Problems: Yes Other/Comment: some occasional loss of vision in right eye - RENAL Hx Chronic Kidney Disease: No - ENDOCRINE/METABOLIC Hx Endocrine Disorders: Yes Hx Hyperthyroidism: Yes - HEMATOLOGICAL/ONCOLOGICAL Hx Blood Disorders: No - INTEGUMENTARY Hx Dermatological Problems: No - MUSCULOSKELETAL/RHEUMATOLOGICAL Hx Musculoskeletal Disorders: No Hx Falls: No - GASTROINTESTINAL Hx Gastrointestinal Disorders: No - GENITOURINARY/GYNECOLOGICAL Hx Genitourinary Disorders: No - PSYCHIATRIC Hx Psychophysiologic Disorder: No Hx Substance Use: No - SURGICAL HISTORY Hx Surgeries: No - ANESTHESIA Hx Anesthesia: Yes Hx Anesthesia Reactions: Yes (nausea/vomiting) Meds Allergies/Adverse Reactions: Allergies Allergy/AdvReac Type Severity Reaction Status Date / Time iodine Allergy Verified 02/11/17 15:34 - Medications Medications: Current Medications Acetaminophen (Tylenol 325mg Tab) 650 mg PO Q6 PRN PRN Reason: Pain, Mild (1-3) Aspirin (Aspirin) 325 mg PO DAILY [facility] Last Admin: 02/17/17 09:24 Dose: 325 mg Diphenhydramine HCl (Benadryl) 50 mg PO Q6H [facility] Last Admin: 02/17/17 09:25 Dose: 50 mg Enoxaparin Sodium (Lovenox) 40 mg SC DAILY [facility] Last Admin: 02/15/17 09:14 Dose: Not Given Hydrochlorothiazide (Microzide) 12.5 mg PO DAILY [facility] Last Admin: 02/17/17 09:24 Dose: 12.5 mg Hydromorphone HCl (Dilaudid) 0.5 mg IVP Q4H PRN PRN Reason: Pain, severe (8-10) Dopamine HCl/Dextrose (Dopamine 400mg/250ml D5w) 400 mg in 250 mls @ 3.64 mls/ hr IV .Q24H PRN; Protocol; 2 MCG/KG/MIN PRN Reason: Systolic Blood Pressure Levothyroxine Sodium (Synthroid) 75 mcg PO DAILY@0630 [facility] Last Admin: 02/17/17 05:31 Dose: 75 mcg Lorazepam (Ativan) 1 mg PO Q8H [facility] Last Admin: 02/17/17 05:31 Dose: 1 mg Nitroglycerin (Nitro-Bid 2% Oint) 1 ea TOP Q4 PRN PRN Reason: Systolic Blood Pressure Oxycodone/Acetaminophen (Percocet 5/325 Mg Tab) 2 tab PO Q4H PRN PRN Reason: Pain, moderate (4-7) Stop: 02/20/17 15:07 Pantoprazole Sodium (Protonix Inj) 40 mg IVP DAILY [facility] Last Admin: 02/17/17 09:25 Dose: 40 mg Rosuvastatin Calcium (Crestor) 40 mg PO HS [facility] Last Admin: 02/16/17 22:15 Dose: 40 mg Physical Exam - Constitutional Appears: Well - Head Exam Head Exam: ATRAUMATIC - Eye Exam Eye Exam: EOMI Pupil Exam: PERRL - ENT Exam ENT Exam: Mucous Membranes Moist - Neck Exam Additional comments: bilateral carotid bruits - Respiratory Exam Respiratory Exam: Clear to Auscultation Bilateral - Cardiovascular Exam Cardiovascular Exam: REGULAR RHYTHM, +S1, +S2 - GI/Abdominal Exam GI & Abdominal Exam: Normal Bowel Sounds, Soft - Rectal Exam Rectal Exam: Deferred - Neurological Exam Neurological exam: Alert, Oriented x3 Results - Vital Signs Recent Vital Signs: Last Vital Signs Temp 97.3 F L 02/17/17 16:30 Pulse 87 02/17/17 16:20 Resp 13 02/17/17 16:20 BP 127/69 02/17/17 15:52 Pulse Ox 100 02/17/17 16:30 - Labs Result Diagrams: 02/17/17 06:45 02/17/17 06:45 Labs: Laboratory Results - last 24 hr 02/17/17 02/17/17 02/17/17 06:45 06:45 06:48 WBC 19.0 H RBC 5.12 Hgb 13.9 Hct 42.3 MCV 82.6 MCH 27.1 MCHC 32.8 L RDW 14.5 Plt Count 338 MPV 8.2 Neut % (Auto) 81.1 H Lymph % (Auto) 10.6 L Mclean % (Auto) 8.0 Eos % (Auto) 0.1 Baso % (Auto) 0.2 Neut # 15.4 H Lymph # 2.0 Mclean # 1.5 H Eos # 0.0 Baso # 0.0 Sodium 140 Potassium 4.0 Chloride 101 Carbon Dioxide 28 Anion Gap 15 BUN 25 H Creatinine 0.9 Est GFR ( Amer) > 60 Est GFR (Non-Af Amer) > 60 Random Glucose 135 H Calcium 9.0 Phosphorus 3.3 Magnesium 2.0 Total Bilirubin 0.6 AST 125 H D ALT 188 H D Alkaline Phosphatase 55 Total Protein 7.3 Albumin 4.1 Globulin 3.2 Albumin/Globulin Ratio 1.3 Blood Type A POSITIVE Antibody Screen Negative Assessment & Plan - Assessment and Plan (Free Text) Assessment: 61 y/o female s/p Right Carotid Artery Endarterectomy with drain and is being admitted to ICU for monitoring. Neuro: left sided hemiparesis 2/2 to b/l carotid stenosis s/p endarterectomy - s/p Right Carotid Artery Endarterectomy with drain 02/17/17 - 02/16/17 Carotid dopplers Right: 70-95% stenosis of the right proximal ICA; Left: 60-70% stenosis of left proximal and mid ICA. CTA confirms findings. - pain control with dilaudid and percocet Cardiovascular: hx of HTN; hx of HLD - Cont HCTZ 12.5 mg po daily - Crestor 10mg PO HS - monitor BP Endo: hx of hypothyroidism - Continue synthroid 75 mcg daily Prophylaxis: -DVT: Lovenox 40 mg SC daily (Should be held Thursday; order in place); SCDs -GI: Protonix 40 mg IV daily <Woodrow Buchanan S - Last Filed: 02/17/17 19:11> Meds - Medications Medications: Current Medications Acetaminophen (Tylenol 325mg Tab) 650 mg PO Q6 PRN PRN Reason: Pain, Mild (1-3) Aspirin (Aspirin) 325 mg PO DAILY [facility] Last Admin: 02/17/17 09:24 Dose: 325 mg Diphenhydramine HCl (Benadryl) 50 mg PO Q6H [facility] Last Admin: 02/17/17 09:25 Dose: 50 mg Enoxaparin Sodium (Lovenox) 40 mg SC DAILY [facility] Last Admin: 02/15/17 09:14 Dose: Not Given Hydrochlorothiazide (Microzide) 12.5 mg PO DAILY [facility] Last Admin: 02/17/17 09:24 Dose: 12.5 mg Hydromorphone HCl (Dilaudid) 0.5 mg IVP Q4H PRN PRN Reason: Pain, severe (8-10) Dopamine HCl/Dextrose (Dopamine 400mg/250ml D5w) 400 mg in 250 mls @ 3.64 mls/ hr IV .Q24H PRN; Protocol; 2 MCG/KG/MIN PRN Reason: Systolic Blood Pressure Levothyroxine Sodium (Synthroid) 75 mcg PO DAILY@0630 [facility] Last Admin: 02/17/17 05:31 Dose: 75 mcg Lorazepam (Ativan) 1 mg PO Q8H [facility] Last Admin: 02/17/17 05:31 Dose: 1 mg Nitroglycerin (Nitro-Bid 2% Oint) 1 ea TOP Q4 PRN PRN Reason: Systolic Blood Pressure Oxycodone/Acetaminophen (Percocet 5/325 Mg Tab) 2 tab PO Q4H PRN PRN Reason: Pain, moderate (4-7) Stop: 02/20/17 15:07 Pantoprazole Sodium (Protonix Inj) 40 mg IVP DAILY [facility] Last Admin: 02/17/17 09:25 Dose: 40 mg Rosuvastatin Calcium (Crestor) 40 mg PO HS [facility] Last Admin: 02/16/17 22:15 Dose: 40 mg Results - Vital Signs Recent Vital Signs: Last Vital Signs Temp 97.3 F L 02/17/17 16:30 Pulse 87 02/17/17 16:20 Resp 13 02/17/17 16:20 BP 127/69 02/17/17 15:52 Pulse Ox 100 02/17/17 16:30 - Labs Result Diagrams: 02/17/17 06:45 02/17/17 06:45 Labs: Laboratory Results - last 24 hr 02/17/17 02/17/17 02/17/17 06:45 06:45 06:48 WBC 19.0 H RBC 5.12 Hgb 13.9 Hct 42.3 MCV 82.6 MCH 27.1 MCHC 32.8 L RDW 14.5 Plt Count 338 MPV 8.2 Neut % (Auto) 81.1 H Lymph % (Auto) 10.6 L Mclean % (Auto) 8.0 Eos % (Auto) 0.1 Baso % (Auto) 0.2 Neut # 15.4 H Lymph # 2.0 Mclean # 1.5 H Eos # 0.0 Baso # 0.0 Sodium 140 Potassium 4.0 Chloride 101 Carbon Dioxide 28 Anion Gap 15 BUN 25 H Creatinine 0.9 Est GFR ( Amer) > 60 Est GFR (Non-Af Amer) > 60 Random Glucose 135 H Calcium 9.0 Phosphorus 3.3 Magnesium 2.0 Total Bilirubin 0.6 AST 125 H D ALT 188 H D Alkaline Phosphatase 55 Total Protein 7.3 Albumin 4.1 Globulin 3.2 Albumin/Globulin Ratio 1.3 Blood Type A POSITIVE Antibody Screen Negative Attending/Attestation - Attestation I have personally seen and examined this patient.: Yes I have fully participated in the care of the patient.: Yes I have reviewed all pertinent clinical information: Yes
[2017-02-17] MEDS: HYDROmorphone 0.5 mg/0.5 ml ISec IVP PRN (19:19)
[2017-02-18] MEDS: HYDROmorphone 0.5 mg/0.5 ml ISec IVP PRN ×2 (01:11→10:15)
--- NOTE | 2017-02-18 02:38 | OP ---
PROCEDURE DATE: 02/17/2017 PREOPERATIVE DIAGNOSIS: Right carotid stenosis, previous right hemispheric stroke. PROCEDURE CARRIED OUT: Right carotid endarterectomy. SURGEON: Dr. York. RETAIL DEPARTMENT RESET: Dr. Santos Davey ANESTHESIA ADMINISTERED BY: Mr. Monster Capellan. TYPE OF ANESTHESIA: General. INDICATIONS: The patient is 61-year-old woman with a history of recent stroke, also history of recently diagnosed coronary artery disease. Standard imaging CTA and duplex scan, all showing high-grade stenosis of the right carotid artery. OPERATIVE FINDINGS: Very high-grade ulcerative stenosis at the origin of the internal carotid artery, relatively small vessels. DESCRIPTION OF PROCEDURE: The patient was given general anesthesia, intravenous antibiotics. An incision was made exposing the common internal and external carotid arteries. After exposure of the vessels, heparin was given. [place] shunt was placed and a standard endarterectomy was carried out. One tacking suture was placed on the cephalad end of the internal carotid artery. The plaque was cleared. Good endpoint, good proximal points. After this had been done, we closed the arteriotomy with a patch using a Vascu-Guard, LeMaitre-type patch, bovine pericardium. This was sutured in position. Bleeding was minimal. Checked again and again for hemostasis. No reversal of anticoagulants. Excellent flow with Doppler and pulse. Wound closed. Blood loss of the procedure 200 mL. Javy York Jr., MD cc:MD Juan Carlos Galindo MD Mazhar Elamir, MD
--- NOTE | 2017-02-18 05:34 | CP.PCM.PN ---
Subjective - Date & Time of Evaluation Date of Evaluation: 02/17/17 Time of Evaluation: 16:40 - Subjective Subjective: Patient s/p Carotid Endarterectomy Hemodynamically stable PMH: HTN (uncontrolled), hypothyroidism, anxiety PSHx: Cholecystectomy Family Hx: Type 2 diabetes, HTN, "heart problems" Social: Tobacco: 1 ppd x40 years, denies alcohol and drug use Allergies: Iodine (anaphylaxis), fish Medications: Synthroid, Lorazepam, HCTZ (see EMR) Review of Systems - Constitutional Constitutional: Weakness. absent: Headache - EENT Eyes: Change in Vision, Floaters, Spots in Vision Ears: absent: Dizziness - Cardiovascular Cardiovascular: absent: Chest Pain, Dyspnea, Lightheadedness - Respiratory Respiratory: absent: Dyspnea - Gastrointestinal Gastrointestinal: absent: Abdominal Pain, Constipation, Diarrhea, Nausea, Vomiting - Musculoskeletal Additional comments: left sided weakness - Neurological Neurological: Weakness, Other Visual Disturbances. absent: Abnormal Speech, Dizziness, Headaches - Psychiatric Psychiatric: Anxiety Physical Exam - Head Exam Head Exam: ATRAUMATIC, NORMAL INSPECTION - Eye Exam Eye Exam: EOMI, Normal appearance - ENT Exam ENT Exam: Mucous Membranes Moist - Respiratory Exam Respiratory Exam: Decreased Breath Sounds, Clear to Auscultation Bilateral. absent: Rhonchi, Wheezes - Cardiovascular Exam Cardiovascular Exam: REGULAR RHYTHM, +S1, +S2 - GI/Abdominal Exam GI & Abdominal Exam: Soft. absent: Distended, Firm, Tenderness - Extremities Exam Extremities exam: Positive for: pedal pulses present. Negative for: pedal edema , tenderness - Neurological Exam Neurological exam: Alert, CN II-XII Intact, Normal Gait, Oriented x3 Additional comments: Right UE & LE strength: 5/5 Left UE & LE strength: 3/5 - Psychiatric Exam Psychiatric exam: Normal Affect, Normal Mood - Skin Skin Exam: Dry, Intact, Normal Color, Warm Objective - Vital Signs/Intake and Output Vital Signs (last 24 hours): Temp Pulse Resp BP Pulse Ox 98.2 F 83 19 134/73 100 02/17/17 20:00 02/18/17 05:01 02/18/17 05:01 02/18/17 05:01 02/18/17 05:00 Intake and Output: 02/17/17 02/18/17 18:59 06:59 Intake Total 50 250 Output Total 250 1000 Balance -200 -750 - Medications Medications: Current Medications Acetaminophen (Tylenol 325mg Tab) 650 mg PO Q6 PRN PRN Reason: Pain, Mild (1-3) Aspirin (Aspirin) 325 mg PO DAILY [facility] Last Admin: 02/17/17 09:24 Dose: 325 mg Diphenhydramine HCl (Benadryl) 50 mg PO Q6H [facility] Last Admin: 02/18/17 03:00 Dose: Not Given Enoxaparin Sodium (Lovenox) 40 mg SC DAILY [facility] Last Admin: 02/15/17 09:14 Dose: Not Given Hydrochlorothiazide (Microzide) 12.5 mg PO DAILY [facility] Last Admin: 02/17/17 09:24 Dose: 12.5 mg Hydromorphone HCl (Dilaudid) 0.5 mg IVP Q4H PRN PRN Reason: Pain, severe (8-10) Last Admin: 02/18/17 01:11 Dose: 0.5 mg Dopamine HCl/Dextrose (Dopamine 400mg/250ml D5w) 400 mg in 250 mls @ 3.64 mls/ hr IV .Q24H PRN; Protocol; 2 MCG/KG/MIN PRN Reason: Systolic Blood Pressure Levothyroxine Sodium (Synthroid) 75 mcg PO DAILY@0630 [facility] Last Admin: 02/17/17 05:31 Dose: 75 mcg Lorazepam (Ativan) 1 mg PO Q8H [facility] Last Admin: 02/17/17 22:00 Dose: 1 mg Nitroglycerin (Nitro-Bid 2% Oint) 1 ea TOP Q4 PRN PRN Reason: Systolic Blood Pressure Oxycodone/Acetaminophen (Percocet 5/325 Mg Tab) 2 tab PO Q4H PRN PRN Reason: Pain, moderate (4-7) Stop: 02/20/17 15:07 Pantoprazole Sodium (Protonix Inj) 40 mg IVP DAILY [facility] Last Admin: 02/17/17 09:25 Dose: 40 mg Rosuvastatin Calcium (Crestor) 40 mg PO HS [facility] Last Admin: 02/17/17 22:18 Dose: 40 mg - Labs Labs: 02/17/17 06:45 02/17/17 06:45 PT 11.0 SECONDS (9.7-12.2) 02/16/17 07:11 INR 1.0 02/16/17 07:11 APTT 29 SECONDS (21-34) 02/16/17 07:11 Assessment and Plan - Assessment and Plan (Free Text) Assessment: Assessment & Plan - Assessment and Plan (Free Text) Assessment: 61 y/o female s/p Right Carotid Artery Endarterectomy with drain and is being admitted to ICU for monitoring. Neuro: left sided hemiparesis 2/2 to b/l carotid stenosis s/p endarterectomy - s/p Right Carotid Artery Endarterectomy with drain 02/17/17 - 02/16/17 Carotid dopplers Right: 70-95% stenosis of the right proximal ICA; Left: 60-70% stenosis of left proximal and mid ICA. CTA confirms findings. - pain control with dilaudid and percocet Cardiovascular: hx of HTN; hx of HLD - Cont HCTZ 12.5 mg po daily - Crestor 10mg PO HS - monitor BP Non obstructive CAD Endo: hx of hypothyroidism - Continue synthroid 75 mcg daily Prophylaxis: -DVT: Lovenox 40 mg SC daily (Should be held Thursday night; order in place); SCDs -GI: Protonix 40 mg IV daily Critical care kenneth 50 minutes
[2017-02-18] MEDS: Levothyroxine 75 MCG TAB PO SCH (05:38)
[2017-02-18 06:29] LABS: BASO % 0.3 % (0.0-2.0); EOS # 0.1 K/uL (0.0-0.7); EOS % 0.8 % (0.0-4.0); LYMPH # 4.2 K/uL (1.0-4.3); LYMPH % 28.9 % (20.0-40.0); MEAN CELL VOLUME 82.4 fL (81.0-99.0); MEAN CORPUSCULAR HEMOGLOBIN 27.6 pg (27.0-31.0); MEAN CORPUSCULAR HGB CONC 33.5 g/dL (33.0-37.0); MEAN PLATELET VOLUME 8.3 fL (7.2-11.7); MONO # 1.8 K/uL (0.0-0.8); MONO % 12.3 % (0.0-10.0); RED CELL DISTRIBUTION WIDTH 14.4 % (11.5-14.5); WHITE BLOOD COUNT 14.6 K/uL (4.8-10.8)
[2017-02-18 06:59] LABS: ALB/GLOB RATIO 1.3 (1.0-2.1); ALKALINE PHOSPHATASE 44 U/L (38-126); ALT/SGPT 126 U/L (9-52); AST/SGOT 52 U/L (14-36); BILIRUBIN,TOTAL 0.7 mg/dL (0.2-1.3); BLOOD UREA NITROGEN 17 mg/dL (7-17); CALCIUM 8.2 mg/dl (8.6-10.4); CARBON DIOXIDE 26 mmol/L (22-30); CHLORIDE 101 mmol/L (98-107); GFR AFRICAN-AMERICAN > 60; GLUCOSE,RANDOM 79 mg/dL (65-105); MAGNESIUM 1.9 mg/dL (1.6-2.3); PHOSPHOROUS 3.8 mg/dL (2.5-4.5); POTASSIUM 3.8 mmol/L (3.6-5.2); SODIUM 139 mmol/L (132-148); TOTAL PROTEIN 5.7 g/dL (6.3-8.3)
--- NOTE | 2017-02-18 07:57 | CP.CCUPN ---
CCU Subjective - Physician Review Subjective (Free Text): Patient seen and examined at bedside. 02/18/17 07:56 CCU Objective - Vital Signs / Intake & Output Vital Signs (Last 4 hours): Vital Signs Pulse Resp BP Pulse Ox 02/18/17 07:01 79 16 130/63 100 02/18/17 06:01 75 15 128/65 100 02/18/17 06:00 72 14 100 02/18/17 05:01 83 19 134/73 02/18/17 05:00 77 14 100 02/18/17 04:01 69 13 113/62 100 02/18/17 04:00 71 10 L 100 Intake and Output (Last 8hrs): Intake & Output 02/17/17 02/18/17 02/18/17 22:59 06:59 14:59 Intake Total 200 250 Output Total 750 750 Balance -550 -500 Weight 149 lb 8 oz Intake: Oral 200 250 Output: Urine 750 750 Urine, Voided 750 750 Other: # Bowel Movements 0 0 - Medications Active Medications: Active Medications Generic Name Dose Route Start Last Admin Trade Name Freq PRN Reason Stop Dose Admin Acetaminophen 650 mg 02/16/17 17:33 Tylenol 325mg Tab PO Q6 PRN Pain, Mild (1-3) Aspirin 325 mg 02/12/17 10:00 02/17/17 09:24 Aspirin PO 325 mg DAILY [facility] Administration Diphenhydramine HCl 50 mg 02/16/17 15:00 02/18/17 03:00 Benadryl PO Not Given Q6H [facility] Enoxaparin Sodium 40 mg 02/12/17 10:00 02/15/17 09:14 Lovenox SC Not Given DAILY [facility] Hydrochlorothiazide 12.5 mg 02/11/17 10:00 02/17/17 09:24 Microzide PO 12.5 mg DAILY [facility] Administration Hydromorphone HCl 0.5 mg 02/17/17 15:05 02/18/17 01:11 Dilaudid IVP 0.5 mg Q4H PRN Administration Pain, severe (8-10) Dopamine HCl/Dextrose 400 mg in 250 mls @ 3.64 mls/hr 02/17/17 15:32 Dopamine 400mg/250ml D5w IV .Q24H PRN Systolic Blood Pressure Protocol 2 MCG/KG/MIN Levothyroxine Sodium 75 mcg 02/12/17 06:30 02/18/17 05:38 Synthroid PO 75 mcg DAILY@0630 [facility] Administration Lorazepam 1 mg 02/11/17 21:45 02/18/17 06:40 Ativan PO Not Given Q8H [facility] Nitroglycerin 1 ea 02/17/17 16:02 Nitro-Bid 2% Oint TOP Q4 PRN Systolic Blood Pressure Ondansetron HCl 4 mg 02/18/17 08:00 Zofran Inj IVP Q4H PRN Nausea/Vomiting Oxycodone/Acetaminophen 2 tab 02/17/17 15:06 Percocet 5/325 Mg Tab PO 02/20/17 15:07 Q4H PRN Pain, moderate (4-7) Pantoprazole Sodium 40 mg 02/13/17 10:00 02/17/17 09:25 Protonix Inj IVP 40 mg DAILY [facility] Administration Rosuvastatin Calcium 40 mg 02/15/17 11:34 02/17/17 22:18 Crestor PO 40 mg HS [facility] Administration - Patient Studies Lab Studies: Lab Studies 02/18/17 02/18/17 02/17/17 Range/Units 06:22 06:22 06:48 WBC 14.6 H (4.8-10.8) K/uL RBC 4.00 (3.80-5.20) Mil/uL Hgb 11.1 D (11.0-16.0) g/dL Hct 33.0 L (34.0-47.0) % MCV 82.4 (81.0-99.0) fL MCH 27.6 (27.0-31.0) pg MCHC 33.5 (33.0-37.0) g/dL RDW 14.4 (11.5-14.5) % Plt Count 252 (130-400) K/uL MPV 8.3 (7.2-11.7) fL Neut % (Auto) 57.7 (50.0-75.0) % Lymph % (Auto) 28.9 (20.0-40.0) % [place] % (Auto) 12.3 H (0.0-10.0) % Eos % (Auto) 0.8 (0.0-4.0) % Baso % (Auto) 0.3 (0.0-2.0) % Neut # 8.4 H (1.8-7.0) K/uL Lymph # 4.2 (1.0-4.3) K/uL [place] # 1.8 H (0.0-0.8) K/uL Eos # 0.1 (0.0-0.7) K/uL Baso # 0.0 (0.0-0.2) K/uL Sodium 139 (132-148) mmol/L Potassium 3.8 (3.6-5.2) mmol/L Chloride 101 (98-107) mmol/L Carbon Dioxide 26 (22-30) mmol/L Anion Gap 16 (10-20) BUN 17 (7-17) mg/dL Creatinine 0.7 (0.7-1.2) MG/DL Est GFR ( Amer) > 60 Est GFR (Non-Af Amer) > 60 Random Glucose 79 (65-105) mg/dL Calcium 8.2 L (8.6-10.4) mg/dl Phosphorus 3.8 (2.5-4.5) mg/dL Magnesium 1.9 (1.6-2.3) mg/dL Total Bilirubin 0.7 (0.2-1.3) mg/dL AST 52 H D (14-36) U/L ALT 126 H D (9-52) U/L Alkaline Phosphatase 44 (38-126) U/L Total Protein 5.7 L (6.3-8.3) g/dL Albumin 3.2 L D (3.5-5.0) g/dL Globulin 2.5 (2.2-3.9) gm/dL Albumin/Globulin Ratio 1.3 (1.0-2.1) Blood Type A POSITIVE Antibody Screen Negative Laboratory Results - last 24 hr 02/17/17 02/18/17 02/18/17 06:48 06:22 06:22 WBC 14.6 H RBC 4.00 Hgb 11.1 D Hct 33.0 L MCV 82.4 MCH 27.6 MCHC 33.5 RDW 14.4 Plt Count 252 MPV 8.3 Neut % (Auto) 57.7 Lymph % (Auto) 28.9 [place] % (Auto) 12.3 H Eos % (Auto) 0.8 Baso % (Auto) 0.3 Neut # 8.4 H Lymph # 4.2 [place] # 1.8 H Eos # 0.1 Baso # 0.0 Sodium 139 Potassium 3.8 Chloride 101 Carbon Dioxide 26 Anion Gap 16 BUN 17 Creatinine 0.7 Est GFR ( Amer) > 60 Est GFR (Non-Af Amer) > 60 Random Glucose 79 Calcium 8.2 L Phosphorus 3.8 Magnesium 1.9 Total Bilirubin 0.7 AST 52 H D ALT 126 H D Alkaline Phosphatase 44 Total Protein 5.7 L Albumin 3.2 L D Globulin 2.5 Albumin/Globulin Ratio 1.3 Blood Type A POSITIVE Antibody Screen Negative Fingerstick Blood Sugar Results: 140 Critical Care Progress Note - Nutrition Nutrition: Nutrition Category Date Time Status Heart Healthy Diet [DIET] Diets 02/17/17 Dinner Active Assessment/Plan - Assessment and Plan (Free Text) Assessment: 61 y/o female s/p Right Carotid Artery Endarterectomy with drain and is being admitted to ICU for monitoring. Neuro: left sided hemiparesis 2/2 to b/l carotid stenosis s/p endarterectomy - s/p Right Carotid Artery Endarterectomy with drain 02/17/17 - 02/16/17 Carotid dopplers Right: 70-95% stenosis of the right proximal ICA; Left: 60-70% stenosis of left proximal and mid ICA. CTA confirms findings. - pain control with dilaudid and percocet Cardiovascular: hx of HTN; hx of HLD - Cont HCTZ 12.5 mg po daily - Crestor 10mg PO HS - monitor BP Endo: hx of hypothyroidism - Continue synthroid 75 mcg daily Prophylaxis: -DVT: Lovenox 40 mg SC daily (Should be held Thursday night; order in place); SCDs -GI: Protonix 40 mg IV daily
--- NOTE | 2017-02-18 08:04 | CP.PCM.PN ---
Subjective - Date & Time of Evaluation Date of Evaluation: 02/18/17 Time of Evaluation: 08:01 - Subjective Subjective: Vasc Sx: Dr York Pt S&E in ICU. NAEO. Resting comfortably. Pain is well controlled though pt states having nausea associated with the PO percocet. Instructed pt to attempt medication with a meal. minimal right sided headache. Otherwise no acute complaints. Objective - Vital Signs/Intake and Output Vital Signs (last 24 hours): Temp Pulse Resp BP Pulse Ox 98.2 F 79 16 130/63 100 02/17/17 20:00 02/18/17 07:01 02/18/17 07:01 02/18/17 07:01 02/18/17 07:01 Intake and Output: 02/18/17 02/18/17 06:59 18:59 Intake Total 400 Output Total 1250 Balance -850 - Medications Medications: Current Medications Acetaminophen (Tylenol 325mg Tab) 650 mg PO Q6 PRN PRN Reason: Pain, Mild (1-3) Aspirin (Aspirin) 325 mg PO DAILY [facility] Last Admin: 02/17/17 09:24 Dose: 325 mg Diphenhydramine HCl (Benadryl) 50 mg PO Q6H [facility] Last Admin: 02/18/17 03:00 Dose: Not Given Enoxaparin Sodium (Lovenox) 40 mg SC DAILY [facility] Last Admin: 02/15/17 09:14 Dose: Not Given Hydrochlorothiazide (Microzide) 12.5 mg PO DAILY [facility] Last Admin: 02/17/17 09:24 Dose: 12.5 mg Hydromorphone HCl (Dilaudid) 0.5 mg IVP Q4H PRN PRN Reason: Pain, severe (8-10) Last Admin: 02/18/17 01:11 Dose: 0.5 mg Dopamine HCl/Dextrose (Dopamine 400mg/250ml D5w) 400 mg in 250 mls @ 3.64 mls/ hr IV .Q24H PRN; Protocol; 2 MCG/KG/MIN PRN Reason: Systolic Blood Pressure Levothyroxine Sodium (Synthroid) 75 mcg PO DAILY@0630 [facility] Last Admin: 02/18/17 05:38 Dose: 75 mcg Lorazepam (Ativan) 1 mg PO Q8H [facility] Last Admin: 02/18/17 06:40 Dose: Not Given Nitroglycerin (Nitro-Bid 2% Oint) 1 ea TOP Q4 PRN PRN Reason: Systolic Blood Pressure Ondansetron HCl (Zofran Inj) 4 mg IVP Q4H PRN PRN Reason: Nausea/Vomiting Oxycodone/Acetaminophen (Percocet 5/325 Mg Tab) 2 tab PO Q4H PRN PRN Reason: Pain, moderate (4-7) Stop: 02/20/17 15:07 Pantoprazole Sodium (Protonix Inj) 40 mg IVP DAILY [facility] Last Admin: 02/17/17 09:25 Dose: 40 mg Rosuvastatin Calcium (Crestor) 40 mg PO HS [facility] Last Admin: 02/17/17 22:18 Dose: 40 mg - Labs Labs: 02/18/17 06:22 02/18/17 06:22 PT 11.0 SECONDS (9.7-12.2) 02/16/17 07:11 INR 1.0 02/16/17 07:11 APTT 29 SECONDS (21-34) 02/16/17 07:11 - Constitutional Appears: Non-toxic, No Acute Distress - Head Exam Head Exam: NORMOCEPHALIC - Eye Exam Eye Exam: EOMI, Normal appearance - ENT Exam ENT Exam: Mucous Membranes Moist - Neck Exam Additional comments: dressing saturated. will remove drain soon - Respiratory Exam Respiratory Exam: absent: Accessory Muscle Use, Respiratory Distress - Cardiovascular Exam Cardiovascular Exam: REGULAR RHYTHM. absent: Tachycardia - GI/Abdominal Exam GI & Abdominal Exam: Soft. absent: Distended - Extremities Exam Additional comments: right lower calf tenderness - Neurological Exam Neurological Exam: Alert, Awake, Oriented x3 - Skin Skin Exam: Normal Color, Warm Assessment and Plan - Assessment and Plan (Free Text) Assessment: 61F POD#1 s/p right CEA Plan: doing well attempt pain medication with food clear for tx to med/surg floor will get duplex of RLE d/w Dr Chela Landin, PGY3
[2017-02-18] MEDS: Enoxaparin 40 mg Syringe SC SCH ×2 (09:10→09:17)
[2017-02-18] MEDS: Oxycodone/Acetaminophen 5/325 mg Tab PO PRN ×2 (14:34→20:34)
[2017-02-18] MEDS ORDERED: DOPamine 400mg/250ml D5W 400 MG/250 ML BAG IV PRN (15:17)
--- NOTE | 2017-02-18 23:28 | CP.PCM.PN ---
Subjective - Date & Time of Evaluation Date of Evaluation: 02/18/17 Time of Evaluation: 18:20 - Subjective Subjective: Patient seen and evaluated Comfortable S/P Right Carotid endarterectomy Objective - Vital Signs/Intake and Output Vital Signs (last 24 hours): Temp Pulse Resp BP Pulse Ox 98.6 F 95 H 18 115/64 94 L 02/18/17 15:15 02/18/17 15:15 02/18/17 15:15 02/18/17 15:15 02/18/17 15:15 Intake and Output: 02/18/17 02/19/17 18:59 06:59 Intake Total 400 Output Total 400 Balance 0 - Medications Medications: Current Medications Acetaminophen (Tylenol 325mg Tab) 650 mg PO Q6 PRN PRN Reason: Pain, Mild (1-3) Aspirin (Aspirin) 325 mg PO DAILY [facility] Last Admin: 02/18/17 09:09 Dose: 325 mg Diphenhydramine HCl (Benadryl) 50 mg PO Q6H [facility] Last Admin: 02/18/17 22:36 Dose: Not Given Enoxaparin Sodium (Lovenox) 40 mg SC DAILY [facility] Last Admin: 02/18/17 09:17 Dose: Not Given Hydrochlorothiazide (Microzide) 12.5 mg PO DAILY [facility] Last Admin: 02/18/17 10:01 Dose: 12.5 mg Hydromorphone HCl (Dilaudid) 0.5 mg IVP Q4H PRN PRN Reason: Pain, severe (8-10) Last Admin: 02/18/17 10:15 Dose: 0.5 mg Dopamine HCl/Dextrose (Dopamine 400mg/250ml D5w) 400 mg in 250 mls @ 3.64 mls/ hr IV .Q24H PRN; Protocol; 2 MCG/KG/MIN PRN Reason: Systolic Blood Pressure Levothyroxine Sodium (Synthroid) 75 mcg PO DAILY@0630 [facility] Last Admin: 02/18/17 05:38 Dose: 75 mcg Nitroglycerin (Nitro-Bid 2% Oint) 1 ea TOP Q4 PRN PRN Reason: Systolic Blood Pressure Ondansetron HCl (Zofran Inj) 4 mg IVP Q4H PRN PRN Reason: Nausea/Vomiting Oxycodone/Acetaminophen (Percocet 5/325 Mg Tab) 2 tab PO Q4H PRN PRN Reason: Pain, moderate (4-7) Stop: 02/20/17 15:07 Last Admin: 02/18/17 20:34 Dose: 2 tab Pantoprazole Sodium (Protonix Inj) 40 mg IVP DAILY [facility] Last Admin: 02/18/17 09:10 Dose: 40 mg Rosuvastatin Calcium (Crestor) 40 mg PO HS [facility] Last Admin: 02/18/17 22:45 Dose: 40 mg - Labs Labs: 02/18/17 06:22 02/18/17 06:22 PT 11.0 SECONDS (9.7-12.2) 02/16/17 07:11 INR 1.0 02/16/17 07:11 APTT 29 SECONDS (21-34) 02/16/17 07:11
[2017-02-19 02:24] VITALS: RESP 20; O2SAT 97
[2017-02-19 04:52] VITALS: BP 117/55; PULSE 99; TEMP 98.8
[2017-02-19] MEDS: Levothyroxine 75 MCG TAB PO SCH (06:04)
--- NOTE | 2017-02-19 07:38 | CP.PCM.PN ---
Subjective - Date & Time of Evaluation Date of Evaluation: 02/19/17 Time of Evaluation: 07:33 - Subjective Subjective: Patient was seen and examined at bedside in no acute distress. Patient reports having some discomfort at the surgical site, but otherwise has no complaints and feels well. Patient reports feeling constipated. 12-point review of systems otherwise negative. Objective - Vital Signs/Intake and Output Vital Signs (last 24 hours): Temp Pulse Resp BP Pulse Ox 98.8 F 99 H 20 117/55 L 97 02/19/17 04:52 02/19/17 04:52 02/19/17 04:52 02/19/17 04:52 02/18/17 23:30 - Medications Medications: Current Medications Acetaminophen (Tylenol 325mg Tab) 650 mg PO Q6 PRN PRN Reason: Pain, Mild (1-3) Aspirin (Aspirin) 325 mg PO DAILY [facility] Last Admin: 02/18/17 09:09 Dose: 325 mg Diphenhydramine HCl (Benadryl) 50 mg PO Q6H [facility] Last Admin: 02/19/17 03:35 Dose: Not Given Enoxaparin Sodium (Lovenox) 40 mg SC DAILY [facility] Last Admin: 02/18/17 09:17 Dose: Not Given Hydrochlorothiazide (Microzide) 12.5 mg PO DAILY [facility] Last Admin: 02/18/17 10:01 Dose: 12.5 mg Hydromorphone HCl (Dilaudid) 0.5 mg IVP Q4H PRN PRN Reason: Pain, severe (8-10) Last Admin: 02/18/17 10:15 Dose: 0.5 mg Dopamine HCl/Dextrose (Dopamine 400mg/250ml D5w) 400 mg in 250 mls @ 3.64 mls/ hr IV .Q24H PRN; Protocol; 2 MCG/KG/MIN PRN Reason: Systolic Blood Pressure Levothyroxine Sodium (Synthroid) 75 mcg PO DAILY@0630 [facility] Last Admin: 02/19/17 06:04 Dose: 75 mcg Nitroglycerin (Nitro-Bid 2% Oint) 1 ea TOP Q4 PRN PRN Reason: Systolic Blood Pressure Ondansetron HCl (Zofran Inj) 4 mg IVP Q4H PRN PRN Reason: Nausea/Vomiting Oxycodone/Acetaminophen (Percocet 5/325 Mg Tab) 2 tab PO Q4H PRN PRN Reason: Pain, moderate (4-7) Stop: 02/20/17 15:07 Last Admin: 02/18/17 20:34 Dose: 2 tab Pantoprazole Sodium (Protonix Inj) 40 mg IVP DAILY [facility] Last Admin: 02/18/17 09:10 Dose: 40 mg Rosuvastatin Calcium (Crestor) 40 mg PO HS [facility] Last Admin: 02/18/17 22:45 Dose: 40 mg - Labs Labs: 02/18/17 06:22 02/18/17 06:22 PT 11.0 SECONDS (9.7-12.2) 02/16/17 07:11 INR 1.0 02/16/17 07:11 APTT 29 SECONDS (21-34) 02/16/17 07:11 - Head Exam Head Exam: ATRAUMATIC, NORMAL INSPECTION - Eye Exam Eye Exam: EOMI, Normal appearance - ENT Exam ENT Exam: Mucous Membranes Moist - Neck Exam Neck Exam: Tenderness Additional comments: Dressing- dry and intact; dressing changed today. - Respiratory Exam Respiratory Exam: Decreased Breath Sounds, Clear to Ausculation Bilateral, NORMAL BREATHING PATTERN. absent: Rhonchi, Wheezes - Cardiovascular Exam Cardiovascular Exam: +S1, +S2. absent: Bradycardia, Tachycardia - GI/Abdominal Exam GI & Abdominal Exam: Soft, Normal Bowel Sounds. absent: Distended, Tenderness - Extremities Exam Extremities Exam: Normal Inspection. absent: Calf Tenderness, Pedal Edema - Neurological Exam Neurological Exam: Alert, Awake, Oriented x3 - Psychiatric Exam Psychiatric exam: Normal Affect, Normal Mood - Skin Skin Exam: Dry, Intact, Normal Color, Warm Assessment and Plan - Assessment and Plan (Free Text) Assessment: 62 year old female s/p left carotid endarterectomy, POD #2. - LE Venous dopplers- negative bilaterally. - Patient is clear for discharge. Patient must follow up with Dr. York within one week of discharge. - Continue wound car. Patient can shower. Leave Steri-strips on until they fall off. - Continue medical management as per hospitalist team.
[2017-02-19 08:36] LABS: BASO # 0.1 K/uL (0.0-0.2); BASO % 0.5 % (0.0-2.0); EOS # 0.2 K/uL (0.0-0.7); EOS % 1.5 % (0.0-4.0); HEMATOCRIT 35.4 % (34.0-47.0); LYMPH # 3.8 K/uL (1.0-4.3); LYMPH % 25.8 % (20.0-40.0); MEAN CELL VOLUME 82.2 fL (81.0-99.0); MEAN CORPUSCULAR HEMOGLOBIN 27.4 pg (27.0-31.0); MEAN CORPUSCULAR HGB CONC 33.3 g/dL (33.0-37.0); MONO # 2.3 K/uL (0.0-0.8); MONO % 15.6 % (0.0-10.0); RED CELL DISTRIBUTION WIDTH 14.8 % (11.5-14.5); WHITE BLOOD COUNT 14.8 K/uL (4.8-10.8)
[2017-02-19 08:48] LABS: CHLORIDE 95 mmol/L (98-107); POTASSIUM 3.4 mmol/L (3.6-5.2); SODIUM 136 mmol/L (132-148)
[2017-02-19 08:50] LABS: AST/SGOT 36 U/L (14-36); BILIRUBIN,TOTAL 0.7 mg/dL (0.2-1.3); CARBON DIOXIDE 29 mmol/L (22-30); GFR AFRICAN-AMERICAN > 60
[2017-02-19 08:51] LABS: ALB/GLOB RATIO 1.3 (1.0-2.1); ALKALINE PHOSPHATASE 56 U/L (38-126); ALT/SGPT 91 U/L (9-52); BLOOD UREA NITROGEN 13 mg/dL (7-17); CALCIUM 8.2 mg/dl (8.6-10.4); GLUCOSE,RANDOM 84 mg/dL (65-105); MAGNESIUM 1.9 mg/dL (1.6-2.3); PHOSPHOROUS 3.9 mg/dL (2.5-4.5); TOTAL PROTEIN 6.4 g/dL (6.3-8.3)
[2017-02-19] MEDS ORDERED: Potassium Chloride 20 mEq ER Tab PO ONE (09:43)
[2017-02-19] MEDS: Enoxaparin 40 mg Syringe SC SCH ×2 (09:52→09:59)
--- NOTE | 2017-02-19 14:12 | VASCLAB ---
PROCEDURE: Lower Extremity Venous Duplex Exam. HISTORY: r/o right DVT PRIORS: None. TECHNIQUE: Bilateral common femoral, femoral, popliteal and posterior tibial, peroneal and great saphenous veins were evaluated. Flow was assessed with color Doppler, compressibility, assessment of phasic flow and augmentation response. Report prepared by Luis Fernando Real, COLLEEN, RVT FINDINGS: RIGHT: 1. Common Femoral Vein: 1.1. Compressibility - Fully compressible: Thrombus - None : Flow - Phasic: Augmentation -Normal: Reflux - None. 2. Femoral Vein: 2.1. Compressibility - Fully compressible: Thrombus - None : Flow - Phasic: Augmentation -Normal: Reflux - None. 3. Popliteal Vein: 3.1. Compressibility - Fully compressible: Thrombus - None : Flow - Phasic: Augmentation -Normal: Reflux - None. 4. Posterior Tibial Vein: 4.1. Compressibility - Fully compressible: Thrombus - None: Flow - Phasic: Augmentation -Normal: Reflux - None. 5. Peroneal Vein: 5.1. Compressibility - Fully compressible: Thrombus - None: Flow - Phasic: Augmentation -Normal: Reflux - None. 6. Great Saphenous Vein: 6.1. Compressibility - Fully compressible: Thrombus - None: Flow - Phasic: Augmentation - Normal: Reflux - None. LEFT: 1. Common Femoral Vein: 1.1. Compressibility - Fully compressible: Thrombus - None: Flow - Phasic: Augmentation -Normal: Reflux - None. 2. Femoral Vein: 2.1. Compressibility - Fully compressible: Thrombus - None: Flow - Phasic: Augmentation -Normal: Reflux - None. 3. Popliteal Vein: 3.1. Compressibility - Fully compressible: Thrombus - None : Flow - Phasic: Augmentation -Normal: Reflux - None. 4. Posterior Tibial Vein: 4.1. Compressibility - Fully compressible: Thrombus - None: Flow - Phasic: Augmentation -Normal: Reflux - None. 5. Peroneal Vein: 5.1. Compressibility - Fully compressible: Thrombus - None: Flow - Phasic: Augmentation -Normal: Reflux - None. 6. Great Saphenous Vein: 6.1. Compressibility - Fully compressible: Thrombus - None: Flow - Phasic: Augmentation - Normal: Reflux - None. OTHER FINDINGS: Right: None significant. Left: None significant. IMPRESSION: Right: No evidence of deep or superficial vein thrombosis of the right lower extremity. Normal valve function noted of the right side. Left: No evidence of deep or superficial vein thrombosis of the left lower extremity. Normal valve function noted of the left side.
--- NOTE | 2017-02-19 15:38 | CP.PCM.PN ---
Subjective - Date & Time of Evaluation Date of Evaluation: 02/19/17 Time of Evaluation: 09:20 - Subjective Subjective: PGY2 medicine note for Dr. Urbina Patient seen and examined. Patient states she has minor pain at site of CEA but otherwise feels well. Patient ready to go home. Patient pending repeat PT eval. Objective - Vital Signs/Intake and Output Vital Signs (last 24 hours): Temp Pulse Resp BP Pulse Ox 98.8 F 99 H 20 117/55 L 97 02/19/17 04:52 02/19/17 04:52 02/19/17 04:52 02/19/17 04:52 02/18/17 23:30 - Medications Medications: Current Medications Acetaminophen (Tylenol 325mg Tab) 650 mg PO Q6 PRN PRN Reason: Pain, Mild (1-3) Aspirin (Aspirin) 325 mg PO DAILY [facility] Last Admin: 02/19/17 09:52 Dose: 325 mg Diphenhydramine HCl (Benadryl) 50 mg PO Q6H [facility] Last Admin: 02/19/17 09:57 Dose: Not Given Enoxaparin Sodium (Lovenox) 40 mg SC DAILY [facility] Last Admin: 02/19/17 09:59 Dose: Not Given Hydrochlorothiazide (Microzide) 12.5 mg PO DAILY [facility] Last Admin: 02/19/17 09:52 Dose: 12.5 mg Hydromorphone HCl (Dilaudid) 0.5 mg IVP Q4H PRN PRN Reason: Pain, severe (8-10) Last Admin: 02/18/17 10:15 Dose: 0.5 mg Dopamine HCl/Dextrose (Dopamine 400mg/250ml D5w) 400 mg in 250 mls @ 3.64 mls/ hr IV .Q24H PRN; Protocol; 2 MCG/KG/MIN PRN Reason: Systolic Blood Pressure Levothyroxine Sodium (Synthroid) 75 mcg PO DAILY@0630 [facility] Last Admin: 02/19/17 06:04 Dose: 75 mcg Lorazepam (Ativan) 1 mg PO DAILY PRN PRN Reason: Anxiety Nitroglycerin (Nitro-Bid 2% Oint) 1 ea TOP Q4 PRN PRN Reason: Systolic Blood Pressure Ondansetron HCl (Zofran Inj) 4 mg IVP Q4H PRN PRN Reason: Nausea/Vomiting Oxycodone/Acetaminophen (Percocet 5/325 Mg Tab) 2 tab PO Q4H PRN PRN Reason: Pain, moderate (4-7) Stop: 02/20/17 15:07 Last Admin: 02/18/17 20:34 Dose: 2 tab Pantoprazole Sodium (Protonix Inj) 40 mg IVP DAILY [facility] Last Admin: 02/19/17 09:52 Dose: 40 mg Rosuvastatin Calcium (Crestor) 40 mg PO HS [facility] Last Admin: 02/18/17 22:45 Dose: 40 mg - Labs Labs: 02/19/17 08:26 02/19/17 08:26 PT 11.0 SECONDS (9.7-12.2) 02/16/17 07:11 INR 1.0 02/16/17 07:11 APTT 29 SECONDS (21-34) 02/16/17 07:11 - Constitutional Appears: Non-toxic, No Acute Distress - Head Exam Head Exam: ATRAUMATIC, NORMOCEPHALIC - Eye Exam Eye Exam: EOMI - ENT Exam ENT Exam: Mucous Membranes Moist - Neck Exam Additional comments: right side of neck bandaged, clean/ dry/ intact - Respiratory Exam Respiratory Exam: Clear to Ausculation Bilateral, NORMAL BREATHING PATTERN - Cardiovascular Exam Cardiovascular Exam: +S1, +S2 - GI/Abdominal Exam GI & Abdominal Exam: Soft, Normal Bowel Sounds. absent: Tenderness - Extremities Exam Extremities Exam: absent: Pedal Edema Additional comments: patient able to move both right and left extremities equally - Neurological Exam Neurological Exam: Alert, Awake - Psychiatric Exam Psychiatric exam: Normal Affect - Skin Skin Exam: Dry, Warm Assessment and Plan - Assessment and Plan (Free Text) Assessment: Left sided hemeparesis 02/19: patient s/p CEA POD #2, patient to be discharged with follow up with Dr. York in 1 week 02/17: patient received Carotid endarterectomy (CEA) today with Dr. York. 02/16: Patient given prophylactic Solumedrol 40mg IVP once and Benadryl 50mg IVP once - prior to cath, 2/2 iodine allergy. To continue Benadryl 50mg PO Q6H x48hrs to mitigate allergic reaction. 02/16: Patient NPO for cardiac cath Today. Scheduled for OR for Carotid endarterectomy (CEA) tomorrow. Carotid dopplers Right: 70-95% of the right proximal ICA with severe hemodynamic significance; left: 60-70% stenosis of left proximal and mid ICA with moderte hemodynamic significance. CTA confirms findings. Refer to full report. 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 Continue to trend. If remains elevated, stop Crestor. 02/16: cardiac cath with Dr. Damon: Non Obstructive CAD, EF 70%, LAD 70% stenosis. See full report. Anxiety On Lorazapam prn Prophylaxis -Lovenox 40 mg SC daily -Protonix 40 mg IV daily -SCDs Patient is stable for discharge home per Dr. Urbina. Patient is to follow up with Dr York in one week and Dr. Urbina within one week. Patient is being discharged with aspirin 325mg daily, HCTZ 12.5mg daily, synthroid 75mcg daily, percocet 1 tab every 6 hours as needed for pain, crestor 40mg nightly, ativan 1mg daily as needed for anxiety. Patient is to return to the ED if her symptoms reoccur or worsen. Patient is encouraged to stop smoking.
--- NOTE | 2017-02-19 23:13 | CP.PCM.PN ---
Subjective - Date & Time of Evaluation Date of Evaluation: 02/19/17 Time of Evaluation: 09:40 - Subjective Subjective: Patient s/p Carotid Endarterectomy No cardiac complaints PMH: HTN (uncontrolled), hypothyroidism, anxiety PSHx: Cholecystectomy Family Hx: Type 2 diabetes, HTN, "heart problems" Social: Tobacco: 1 ppd x40 years, denies alcohol and drug use Allergies: Iodine (anaphylaxis), fish Medications: Synthroid, Lorazepam, HCTZ (see EMR) Review of Systems - Constitutional Constitutional: Weakness. absent: Headache - EENT Eyes: Change in Vision, Floaters, Spots in Vision Ears: absent: Dizziness - Cardiovascular Cardiovascular: absent: Chest Pain, Dyspnea, Lightheadedness - Respiratory Respiratory: absent: Dyspnea - Gastrointestinal Gastrointestinal: absent: Abdominal Pain, Constipation, Diarrhea, Nausea, Vomiting - Musculoskeletal Additional comments: left sided weakness - Neurological Neurological: Weakness, Other Visual Disturbances. absent: Abnormal Speech, Dizziness, Headaches - Psychiatric Psychiatric: Anxiety Physical Exam - Head Exam Head Exam: ATRAUMATIC, NORMAL INSPECTION - Eye Exam Eye Exam: EOMI, Normal appearance - ENT Exam ENT Exam: Mucous Membranes Moist - Respiratory Exam Respiratory Exam: Decreased Breath Sounds, Clear to Auscultation Bilateral. absent: Rhonchi, Wheezes - Cardiovascular Exam Cardiovascular Exam: REGULAR RHYTHM, +S1, +S2 - GI/Abdominal Exam GI & Abdominal Exam: Soft. absent: Distended, Firm, Tenderness - Extremities Exam Extremities exam: Positive for: pedal pulses present. Negative for: pedal edema , tenderness - Neurological Exam Neurological exam: Alert, CN II-XII Intact, Normal Gait, Oriented x3 Additional comments: Right UE & LE strength: 5/5 Left UE & LE strength: 3/5 - Psychiatric Exam Psychiatric exam: Normal Affect, Normal Mood - Skin Skin Exam: Dry, Intact, Normal Color, Warm Objective - Vital Signs/Intake and Output Vital Signs (last 24 hours): Temp Pulse Resp BP Pulse Ox 98.8 F 99 H 20 117/55 L 97 02/19/17 04:52 02/19/17 04:52 02/19/17 04:52 02/19/17 04:52 02/18/17 23:30 - Labs Labs: 02/19/17 08:26 02/19/17 08:26 PT 11.0 SECONDS (9.7-12.2) 02/16/17 07:11 INR 1.0 02/16/17 07:11 APTT 29 SECONDS (21-34) 02/16/17 07:11 Assessment and Plan - Assessment and Plan (Free Text) Assessment: Assessment & Plan - Assessment and Plan (Free Text) Assessment: 61 y/o female s/p Right Carotid Artery Endarterectomy with drain and is being admitted to ICU for monitoring. Neuro: left sided hemiparesis 2/2 to b/l carotid stenosis s/p endarterectomy - s/p Right Carotid Artery Endarterectomy with drain 02/17/17 - 02/16/17 Carotid dopplers Right: 70-95% stenosis of the right proximal ICA; Left: 60-70% stenosis of left proximal and mid ICA. CTA confirms findings. - pain control with dilaudid and percocet Cardiovascular: hx of HTN; hx of HLD - Cont HCTZ 12.5 mg po daily - Crestor 10mg PO HS - monitor BP Non obstructive CAD Endo: hx of hypothyroidism - Continue synthroid 75 mcg daily Prophylaxis: -DVT: Lovenox 40 mg SC daily (Should be held Thursday night; order in place); SCDs -GI: Protonix 40 mg IV daily
== END 2017-02-19 16:00 | disposition home or self-care (01) | DRG 838 ==
LOC: C.ER 15:28 → C.9E 16:55 → C.6T 19:09 → C.9I 02-17 15:45 → C.6T 02-18 11:20
PROVIDERS: ADMIT Internal Medicine Pulmonary Disease; ATTEND Internal Medicine Pulmonary Disease
PROC: 03CK0ZZ Extirpation of Matter from Right Internal Carotid Artery, Open Approach (ICD-10-PCS; principal; 2017-02-17 11:30)
DX: I63.231 Cerebral infarction due to unspecified occlusion or stenosis of right carotid arteries (principal); E05.90 Thyrotoxicosis, unspecified without thyrotoxic crisis or storm; G81.94 Hemiplegia, unspecified affecting left nondominant side; I10 Essential (primary) hypertension; F17.210 Nicotine dependence, cigarettes, uncomplicated; E03.9 Hypothyroidism, unspecified; I25.10 Atherosclerotic heart disease of native coronary artery without angina pectoris; F41.9 Anxiety disorder, unspecified

== ENCOUNTER 2017-07-14 17:02 | Inpatient (IN) | payer OTHER ==
[2017-07-14 17:27] VITALS: BMI 18.4
--- NOTE | 2017-07-14 17:57 | C.PDOC ---
History Of Present Illness <Padmini Sevilla - Last Filed: 07/14/17 18:41> <Carmela Murrell - Last Filed: 07/14/17 19:53> 62-year-old female, presents to the emergency department with complaints of weakness in right leg x2 days. Patient has a prior history of TIA on left side. States her leg feels heavier when she tries to walk. Patient notes that initially she felt weakness in her right arm that has now resolved. Denies any numbness/tingling, facial droop, dizziness, speech changes or any other associated symptoms. No other complaints at this time. (Padmini Sevilla) History Per: Patient History/Exam Limitations: no limitations Onset/Duration Of Symptoms: Days Current Symptoms Are (Timing): Better <Padmini Sevilla - Last Filed: 07/14/17 18:41> <Carmela Murrell - Last Filed: 07/14/17 19:53> Chief Complaint (Nursing): Weakness/Neurological Deficit Past Medical History Reviewed: Historical Data, Nursing Documentation, Vital Signs - Medical History PMH: Asthma, HTN, Hyperthyroidism Surgical History: Carotid Endarterectomy, Cholecystectomy Family History: States: CAD, Diabetes, Hypertension - Social History Hx Tobacco Use: Yes Hx Alcohol Use: No Hx Substance Use: No - Immunization History Hx Tetanus Toxoid Vaccination: No Hx Influenza Vaccination: No Hx Pneumococcal Vaccination: No <Padmini Sevilla - Last Filed: 07/14/17 18:41> Vital Signs: Last Vital Signs Temp 97.7 F 07/14/17 17:27 Pulse 85 07/14/17 19:00 Resp 17 07/14/17 19:00 BP 176/75 H 07/14/17 19:00 Pulse Ox 100 07/14/17 19:00 - [facility] Procedures APPLICATION OF SPLINT (12/06/04) EXTIRPATION OF MATTER FROM R INT CAROTID, OPEN APPROACH (02/11/17) INJECT/INFUSE NEC (12/23/03) NEBULIZER THERAPY (05/31/03) Review Of Systems Constitutional: Negative for: Fever Cardiovascular: Negative for: Chest Pain Respiratory: Negative for: Cough, Shortness of Breath Gastrointestinal: Negative for: Nausea, Vomiting Skin: Negative for: Rash Neurological: Positive for: Weakness. Negative for: Headache, Dizziness <Padmini Sevilla - Last Filed: 07/14/17 18:41> Physical Exam - Physical Exam Appears: Non-toxic, No Acute Distress Skin: Warm, Dry, No Rash Nose: Normal Oral Mucosa: Moist Lips: Normal Appearing Neck: Normal ROM Cardiovascular: Rhythm Regular, No Murmur Respiratory: Normal Breath Sounds, No Accessory Muscle Use Extremity: Normal ROM Neurological/Psych: Oriented x3, Normal Speech, Normal Cognition, Normal Motor ( Left 4/5. Right 5/5), Normal Sensation, Other (SEE NIH. (-)finger to nose. (-) Pronators drift) <Padmini Sevilla - Last Filed: 07/14/17 18:41> ED Course And Treatment O2 Sat by Pulse Oximetry: 100 (RA) Pulse Ox Interpretation: Normal <Padmini Sevilla - Last Filed: 07/14/17 18:41> - Laboratory Results Result Diagrams: 07/14/17 19:20 07/14/17 19:20 <Carmela Murrell - Last Filed: 07/14/17 19:53> NIHSS Stroke Scale 2 - How Severe is the Stroke Level of Consciousness: 0=Alert LOC to Questions: 0=Both comments correct LOC to commands: 0=Obeys both correctly Best Gaze: 0=Normal Visual: 0=No visual loss Facial: 0=Normal Motor Arm - Left: 0=No drift Motor Arm - Right: 0=No drift Motor Leg - Left: 0=No drift Motor Leg - Right: 1=Drift before 5 sec Limb Ataxia: 0=Absent Sensory: 0=Normal Best Language: 0=No aphasia Dysarthia: 0=Normal articulation Extinction & Inattention (Neglect): 0=Normal, no object Score: 1 <Padmini Sevilla - Last Filed: 07/14/17 18:41> Medical Decision Making <Padmini Sevilla - Last Filed: 07/14/17 18:41> <Carmela Murrell - Last Filed: 07/14/17 19:53> Medical Decision Making: Plan: * CT Head (Padmini Sevilla) Disposition <Padmini Sevilla - Last Filed: 07/14/17 18:41> Discussed With : Giselle Urbina Comment: accepted the pt on his service and took over the care at 7:52 PM Doctor Will See Patient In The: Hospital Counseled Patient/Family Regarding: Studies Performed, Diagnosis - Disposition Disposition Time: 07:00 <Carmela Murrell - Last Filed: 07/14/17 19:53> - Disposition Disposition: HOSPITALIZED Condition: FAIR Forms: [facility] (Lao) - Clinical Impression Clinical Impression: CVA (cerebral vascular accident) - Scribe Statement The provider has reviewed the documentation as recorded by the Scribe (Cassy Kruse) <Padmini Sevilla - Last Filed: 07/14/17 18:41> <Carmela Murrell - Last Filed: 07/14/17 19:53> - Scribe Statement All medical record entries made by the Scribe were at my direction and personally dictated by me. I have reviewed the chart and agree that the record accurately reflects my personal performance of the history, physical exam, medical decision making, and the department course for this patient. I have also personally directed, reviewed, and agree with the discharge instructions and disposition. (Padmini Sevilla) Decision To Admit <Padmini Sevilla - Last Filed: 07/14/17 18:41> - Pt Status Changed To: Hospital Disposition Of: Inpatient - Admit Certification Admit to Inpatient:: After my assessment, the patient will require hospitalization for at least two midnights. This is because of the severity of symptoms shown, intensity of services needed, and/or the medical risk in this patient being treated as an outpatient. - InPatient: Physician Admission Certification: I certify that this patient requires 2 or more midnights of care for the following reason:: After my assessment, the patient will require hospitalization for at least two midnights. This is because of the severity of symptoms shown, intensity of services needed, and/or the medical risk in this patient being treated as an outpatient. - . Bed Request Type: Telemetry Admitting Physician: Giselle Urbina <Carmela Murrell - Last Filed: 07/14/17 19:53> - . Patient Diagnosis: CVA (cerebral vascular accident)
--- NOTE | 2017-07-14 18:43 | CT ---
PROCEDURE: CT HEAD WITHOUT CONTRAST. HISTORY: r/o CVA COMPARISON: Noncontrast head CT performed 02/11/17 TECHNIQUE: Axial computed tomography images were obtained through the head/brain without intravenous contrast. Radiation dose: Total exam DLP = 982.82 mGy-cm. This CT exam was performed using one or more of the following dose reduction techniques: Automated exposure control, adjustment of the mA and/or kV according to patient size, and/or use of iterative reconstruction technique. FINDINGS: HEMORRHAGE: No intracranial hemorrhage. BRAIN: Diffuse atrophy with prominence of the ventricles and sulci noted. No mass effect or edema. Mild scattered white matter hypodensities, which are nonspecific, but often seen with chronic microvascular ischemic disease. Please note that MRI with diffusion imaging is more sensitive in the detection of acute ischemic event. VENTRICLES: No hydrocephalus. CALVARIUM: Unremarkable. PARANASAL SINUSES: Unremarkable as visualized. No significant inflammatory changes. MASTOID AIR CELLS: Unremarkable as visualized. No inflammatory changes. OTHER FINDINGS: None. IMPRESSION: Mild generalized atrophy. Mild nonspecific white matter changes.
[2017-07-14 19:24] LABS: BASO # 0.1 K/uL (0.0-0.2); BASO % 0.6 % (0.0-2.0); EOS # 0.1 K/uL (0.0-0.7); EOS % 0.9 % (0.0-4.0); LYMPH # 3.1 K/uL (1.0-4.3); LYMPH % 26.5 % (20.0-40.0); MEAN CELL VOLUME 82.2 fL (81.0-99.0); MEAN CORPUSCULAR HEMOGLOBIN 27.5 pg (27.0-31.0); MEAN CORPUSCULAR HGB CONC 33.4 g/dL (33.0-37.0); MEAN PLATELET VOLUME 7.5 fL (7.2-11.7); MONO % 8.2 % (0.0-10.0); NEUT # 7.4 K/uL (1.8-7.0); NEUT % 63.8 % (50.0-75.0); RBC 5.03 Mil/uL (3.80-5.20); RED CELL DISTRIBUTION WIDTH 14.4 % (11.5-14.5); WHITE BLOOD COUNT 11.6 K/uL (4.8-10.8)
[2017-07-14 19:26] LABS: HEMOGLOBIN 13.8 g/dL (11.0-16.0)
[2017-07-14 19:37] LABS: ALB/GLOB RATIO 1.2 (1.0-2.1); ALBUMIN 4.4 g/dL (3.5-5.0); CALCIUM 9.6 mg/dl (8.6-10.4); GFR AFRICAN-AMERICAN > 60; GFR NON-AFRICAN AMERICAN > 60
[2017-07-14 19:42] LABS: ALT/SGPT 30 U/L (9-52); AST/SGOT 21 U/L (14-36); BLOOD UREA NITROGEN 19 mg/dL (7-17)
[2017-07-15] MEDS ORDERED: Levothyroxine 75 MCG TAB PO SCH (06:30)
[2017-07-15 08:35] LABS: BASO # 0.1 K/uL (0.0-0.2); BASO % 0.6 % (0.0-2.0); EOS # 0.2 K/uL (0.0-0.7); EOS % 2.1 % (0.0-4.0); HEMOGLOBIN 12.5 g/dL (11.0-16.0); LYMPH # 4.6 K/uL (1.0-4.3); LYMPH % 40.9 % (20.0-40.0); MEAN PLATELET VOLUME 7.4 fL (7.2-11.7); MONO # 1.1 K/uL (0.0-0.8); MONO % 10.2 % (0.0-10.0); NEUT # 5.2 K/uL (1.8-7.0); NEUT % 46.2 % (50.0-75.0); NRBC % 0.1 % (0.0-2.0); RBC 4.64 Mil/uL (3.80-5.20); RED CELL DISTRIBUTION WIDTH 14.2 % (11.5-14.5); WHITE BLOOD COUNT 11.2 K/uL (4.8-10.8)
[2017-07-15 09:10] LABS: ALB/GLOB RATIO 1.2 (1.0-2.1); ALBUMIN 3.7 g/dL (3.5-5.0); ALT/SGPT 27 U/L (9-52); AST/SGOT 18 U/L (14-36); BLOOD UREA NITROGEN 15 mg/dL (7-17); CALCIUM 8.8 mg/dl (8.6-10.4); GFR AFRICAN-AMERICAN > 60; GFR NON-AFRICAN AMERICAN > 60; HDL CHOLESTEROL 37 mg/dL (30-70); MAGNESIUM 1.9 mg/dL (1.6-2.3)
[2017-07-15 09:15] LABS: LDL CHOLESTEROL 108 mg/dL (0-129)
[2017-07-15] MEDS ORDERED: Enoxaparin 40 mg Syringe SC SCH (10:00)
--- NOTE | 2017-07-15 10:23 | RAD ---
HISTORY: Sepsis Patient COMPARISON: 02/11/2017. FINDINGS: LUNGS: The lungs are well inflated and clear. PLEURA: No significant pleural effusion identified, no pneumothorax apparent. CARDIOVASCULAR: Normal. OSSEOUS STRUCTURES: No significant abnormalities. VISUALIZED UPPER ABDOMEN: Normal. OTHER FINDINGS: None. IMPRESSION: No active pulmonary disease.
[2017-07-15 11:20] LABS: SQUAMOUS EPITHIAL 1 /hpf (0-5); URINE BACTERIA RARE (<OCC); URINE BILIRUBIN NEGATIVE (NEGATIVE); URINE BLOOD 1+ (NEGATIVE); URINE CLARITY Clear (Clear); URINE COLOR Yellow (YELLOW); URINE GLUCOSE (UA) NORMAL (Normal); URINE HYALINE CAST 0-2 /lpf (0-2); URINE LEUKOCYTE ESTERASE TRACE Leu/uL (Negative); URINE NITRATE NEGATIVE (NEGATIVE); URINE PROTEIN NEGATIVE (NEGATIVE); URINE UROBILINOGEN NORMAL mg/dL (0.2-1.0)
[2017-07-15 11:25] VITALS: BP 122/68
[2017-07-15] MEDS: Potassium Chloride 20 mEq ER Tab PO SCH ×3 (11:32→14:22)
--- NOTE | 2017-07-15 13:04 | CP.PCM.PN ---
Subjective - Subjective Subjective: Came to see patient. Patient went for MRI. Objective - Vital Signs/Intake and Output Vital Signs (last 24 hours): Temp Pulse Resp BP Pulse Ox 97.7 F 78 15 122/68 99 07/15/17 07:00 07/15/17 07:00 07/15/17 07:00 07/15/17 11:16 07/15/17 11:16 - Medications Medications: Current Medications Dipyridamole/Aspirin (Aggrenox 25-200 Mg) 1 ea PO BID [facility] Enoxaparin Sodium (Lovenox) 40 mg SC DAILY [facility] Last Admin: 07/15/17 11:32 Dose: 40 mg Hydrochlorothiazide (Hydrodiuril) 25 mg PO HS [facility] Last Admin: 07/14/17 22:55 Dose: 25 mg Levothyroxine Sodium (Synthroid) 75 mcg PO DAILY@0630 [facility] Last Admin: 07/15/17 06:17 Dose: 75 mcg Lorazepam (Ativan) 1 mg PO DAILY PRN PRN Reason: Anxiety Potassium Chloride (K-Dur 20 Meq Er Tab) 40 meq PO Q2 [facility] Stop: 07/15/17 14:01 Last Admin: 07/15/17 11:32 Dose: 40 meq Rosuvastatin Calcium (Crestor) 10 mg PO HS [facility] Last Admin: 07/14/17 22:55 Dose: 10 mg - Labs Labs: 07/15/17 08:25 07/15/17 08:25
--- NOTE | 2017-07-15 13:58 | CARD ---
APPROVED REPORT EKG Measurement Heart [id number] <Conclusion> Normal sinus rhythm Normal ECG
--- NOTE | 2017-07-15 13:59 | MRI ---
PROCEDURE: MRI BRAIN WITHOUT CONTRAST HISTORY: r/o [place]oke. hx of past stoke feb 2017 COMPARISON: Noncontrast head CT from 07/14/2017 TECHNIQUE: Multiplanar, multisequence MR images of the brain were obtained without intravenous contrast enhancement. FINDINGS: HEMORRHAGE: None DWI: No evidence of an acute or early subacute infarction. BRAIN PARENCHYMA: There are mild chronic microangiopathic changes. There is no mass, mass effect or abnormal extra-axial fluid collection. The midline sagittal structures are normal. VENTRICLES: There is mild age-related global parenchymal volume loss and proportionate enlargement of the ventricles and cortical sulci. CRANIUM: There is normal bone marrow signal pattern. ORBITS: Grossly unremarkable. PARANASAL SINUSES/MASTOIDS: Predominantly clear. VASCULAR SYSTEM: There are normal signal voids in the larger intracranial arteries. OTHER FINDINGS: None. IMPRESSION: 1. No acute intracranial abnormality. 2. Mild chronic microangiopathic changes and mild age-related global parenchymal volume loss.
--- NOTE | 2017-07-15 14:28 | CP.PCM.PN ---
Subjective - Date & Time of Evaluation Date of Evaluation: 07/15/17 Time of Evaluation: 07:00 - Subjective Subjective: PGY [address] note for Dr[address] Urbina: Patient was seen and examined at bedside this morning. She stated that 2 days ago in the am she woke up and her right arm felt heavy for a few hours and went away. She did not think anything of it. Then yesterday she woke up and her right leg felt heavy. She denies difficulties ambulating, trouble speaking, numbness/tingling or weakness in the extremities. This sensation has now resolved and the patient has no current complaints. She is requesting to go home. Patient with a history of stoke in February of 2017 which she states she has no residual deficits from. She is a patient of Dr. Urbina's and follow up with him outpatient. She reports that she is taking all of her medications including aspirin but states that she isn't taking her stain every day. Patient continues to smoke and has no been able to quit. Patient was counseled heavily to stop smoking and take her medications daily. Objective - Vital Signs/Intake and Output Vital Signs (last 24 hours): Temp Pulse Resp BP Pulse Ox 97.7 F 78 15 122/68 99 07/15/17 07:00 07/15/17 07:00 07/15/17 07:00 07/15/17 11:16 07/15/17 11:16 - Medications Medications: Current Medications Dipyridamole/Aspirin (Aggrenox 25-200 Mg) 1 ea PO BID [facility] Enoxaparin Sodium (Lovenox) 40 mg SC DAILY [facility] Last Admin: 07/15/17 11:32 Dose: 40 mg Hydrochlorothiazide (Hydrodiuril) 25 mg PO [facility] Last Admin: 07/14/17 22:55 Dose: 25 mg Levothyroxine Sodium (Synthroid) 75 mcg PO DAILY@0630 [facility] Last Admin: 07/15/17 06:17 Dose: 75 mcg Lorazepam (Ativan) 1 mg PO DAILY PRN PRN Reason: Anxiety Rosuvastatin Calcium (Crestor) 10 mg PO [facility] Last Admin: 07/14/17 22:55 Dose: 10 mg - Labs Labs: 07/15/17 08:25 07/15/17 08:25 - Constitutional Appears: Non-toxic, No Acute Distress - Head Exam Head Exam: ATRAUMATIC, NORMAL INSPECTION - Eye Exam Eye Exam: EOMI, PERRL Pupil Exam: NORMAL ACCOMODATION - ENT Exam ENT Exam: Mucous Membranes Moist - Respiratory Exam Respiratory Exam: Clear to Ausculation Bilateral, NORMAL BREATHING PATTERN. absent: Respiratory Distress - Cardiovascular Exam Cardiovascular Exam: REGULAR RHYTHM, +S1, +S2 - GI/Abdominal Exam GI & Abdominal Exam: Soft, Normal Bowel Sounds. absent: Distended, Firm, Guarding, Tenderness - Extremities Exam Extremities Exam: Normal Inspection. absent: Calf Tenderness - Back Exam Back Exam: NORMAL INSPECTION. absent: CVA tenderness (L), CVA tenderness (R), paraspinal tenderness - Neurological Exam Neurological Exam: Alert, Awake, CN II-XII Intact, Normal Gait Neuro motor strength exam: Left Upper Extremity: 5, Right Upper Extremity: 5, Left Lower Extremity: 5, Right Lower Extremity: 5 Additional comments: Ambulating well well, no weakness, no facial droop, normal speech, finger to nose/heel to [place] in tact, good coordination, sensation in tact and normal through out Assessment and Plan - Assessment and Plan (Free Text) Assessment: TIA Deficits have resolved NIHSS today = [address] - mild atophy, chronic microvasclar changes, no bleed MRI - no abnormality, mild chronic microangiopathic changes and volume loss Patient started on Aggrenox 25/200mg [address] Miguel Fagan consulted, help appreciated - agree with Plan patient to be on aggrenox (pt is to watch for headaches) or asa/plavix therapy HbA1c 6.1 Tchol 163, HDL 37, LDL 108, Trig 64 Crestor 10mg PO HS PT/OT w/hx CEA (right was 75-90% occluded, 60-70% occluded onthe left) - Patient is to follow up with vascular surgery outpatient Last echo Feb no CHF, EF normal Hypertension HCTZ 25mg PO HS Hx stroke February 2017 w/hx CEA (right was 75-90% occluded, 60-70% occluded onthe left) - Patient is to follow up with vascular surgery outpatietn Last echo Feb no CHF, EF normal ASA 81mg PO daily Crestor 10mg PO HS no residual deficits Hypothyroid Synthroid 75 mcg daily TSH 0.94 Prophylactic Measures Lovenox 40mg SC daily SCD Regular diet Patient is stable for discharge home. Patient is to follow up with Dr. Urbina within 1-2 weeks of discharge for post hospital care. Patient is to resume all of her home medications. She is to stop taking baby aspirin and start taking Aggrenox one by mouth twice a day instead (prescription was sent to [facility] pharmacy). Patient is to notify Dr. Urbina if she begins to have headaches as this could be a side effect of aggrenox. Patient is to return to the emergency if these symptoms return. All instructions explained to the patient she she agrees.
[2017-07-15 16:14] VITALS: PULSE 71; RESP 15; TEMP 98.1; O2SAT 98
[2017-07-15] MEDS ORDERED: Aspirin-Dipyridamole 200-25 mg ER Cap PO SCH (18:00)
== END 2017-07-15 15:36 | disposition home or self-care (01) | DRG 464 ==
LOC: C.ER 17:02 → C.9E 19:50 → C.9I 07-15 06:15
PROVIDERS: ADMIT Internal Medicine Pulmonary Disease; ATTEND Internal Medicine Pulmonary Disease
DX: R53.1 Weakness (principal); E03.9 Hypothyroidism, unspecified; I10 Essential (primary) hypertension; E11.9 Type 2 diabetes mellitus without complications; F17.200 Nicotine dependence, unspecified, uncomplicated; I25.10 Atherosclerotic heart disease of native coronary artery without angina pectoris; Z86.73 Personal history of transient ischemic attack (TIA), and cerebral infarction without residual deficits; J45.909 Unspecified asthma, uncomplicated; Z68.1 Body mass index [BMI] 19.9 or less, adult

== ENCOUNTER 2018-04-28 00:10 | Inpatient (IN) | payer MEDICARE, OTHER ==
[2018-04-28 00:10] VITALS: BMI 18.4
--- NOTE | 2018-04-28 00:18 | C.PDOC ---
History Of Present Illness Patient presents to the ER with a complaint of not feeling well, she got scared, felt like her heart was racing, then felt an numbness and tingling sensation to her left arm. 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 Patient reports she still smokes a pack a day. Denies headache, slurred speech, or weakness. Time Seen by Provider: 04/28/18 00:17 History Per: Patient History/Exam Limitations: no limitations Onset/Duration Of Symptoms: Hrs Current Symptoms Are (Timing): Still Present Severity: Moderate Pain Scale Rating Of: 4 Recent travel outside of the [place]: No Past Medical History Reviewed: Historical Data, Nursing Documentation, Vital Signs - Medical History PMH: Asthma, HTN, Hyperthyroidism Denies: Chronic Kidney Disease Surgical History: Carotid Endarterectomy, Cholecystectomy - [facility] Procedures APPLICATION OF SPLINT (12/06/04) EXTIRPATION OF MATTER FROM R INT CAROTID, OPEN APPROACH (02/11/17) INJECT/INFUSE NEC (12/23/03) NEBULIZER THERAPY (05/31/03) Family History: States: CAD, Diabetes, Hypertension - Social History Hx Tobacco Use: Yes Hx Alcohol Use: No Hx Substance Use: No - Immunization History Hx Tetanus Toxoid Vaccination: No Hx Influenza Vaccination: No Hx Pneumococcal Vaccination: No Review Of Systems Constitutional: Positive for: Other (Not feeling well). Negative for: Fever, Chills Cardiovascular: Negative for: Chest Pain, Palpitations Respiratory: Negative for: Cough, Shortness of Breath Gastrointestinal: Negative for: Nausea, Vomiting Neurological: Positive for: Other (Numbness/tingling to left arm). Negative for: Weakness, Change in Speech, Headache Physical Exam - Physical Exam Appears: Non-toxic Skin: Warm, Dry Head: Normacephalic Eye(s): bilateral: Normal Inspection, PERRL, EOMI Oral Mucosa: Moist Neck: Trachea Midline, Supple Chest: Symmetrical, No Tenderness Cardiovascular: Rhythm Regular Respiratory: No Rales, No Rhonchi, No Wheezing Gastrointestinal/Abdominal: Soft, No Tenderness Neurological/Psych: Oriented x3 ED Course And Treatment - Laboratory Results Result Diagrams: 04/28/18 01:15 04/28/18 01:15 ECG: Interpreted By Me, Viewed By Me ECG Rhythm: Sinus Rhythm (70), Nonspecific Changes O2 Sat by Pulse Oximetry: 96 Pulse Ox Interpretation: Normal - Radiology CXR: Interpreted by Me, Viewed By Me CXR Interpretation: No: Infiltrates, Fracture, Pnemothorax Progress Note: Blood work, CXR, EKG, and CT head ordered. IV fluids administered. no cta done as pt is allergic to contrast NIHSS Stroke Scale - Date/Time Evaluation Performed Date Performed: 04/28/18 Time Performed: 00:17 - How Severe is the Stroke Level of Consciousness: 0=Alert rTPA Inclusion/Exclusion - Refusal of Treatment Patient Refused Treatment: No - Inclusion Criteria for Altepase Patient is 18 years or Older: Yes The Clinical Diagnosis of Ischemic Stroke That is Causing a Potentially Disabling Neurological Deficit: No Time of Onset is Well Established to be Less Than 270 Minute Before Treatment Would Begin: Yes Risk/Benefit Discussed With Patient/Family Member Present: Yes - Exclusion Criteria for Altepase Uncontrolled Hypertension at Time of Treatment (Systolic BP above 185 or Diastolic BP above 110 mmHg): No Active Internal Bleeding: No Known Bleeding Diathesis Including but Not Limited to: Platelets Below 100, 000/mm,PTT Above 40 sec After Heparin Use, Current Use of Oral Anitcoagulant With INR Greater Than 1.7 or PT Greater Than 15 secs: No Evidence of an Intracranial Hemorrhage: No Evidence of Major Acute Infarct With Signs Greater Than 1/3 MCA Territory: No Suspicion of Subarachnoid Hemorrhage on Pretreatment Evaluation Even if CT Head Negative For Hemorrhage: No - Warning to TPA With Conditions Following Conditions Weighed Against Anticipated Benefit: Yes Condition: Rapid Improvement Additional Condition (For 3-4.5 Hour Window): Prior Stroke and Diabetes, Any anticoagulant use prior to admission (Even if INR less than 1.7) Disposition Discussed With : Giselle Urbina Comment: accepted the pt on his service and took over the care at 1:29AM Doctor Will See Patient In The: Hospital Counseled Patient/Family Regarding: Studies Performed, Diagnosis, Smoking Cessation - Disposition Disposition: HOSPITALIZED Disposition Time: 00:17 Condition: FAIR - POA Present On Arrival: None - Clinical Impression Clinical Impression: Anxiety, Paresthesia - Scribe Statement The provider has reviewed the documentation as recorded by the Scribe Luis Fernando Mckeon All medical record entries made by the Scribe were at my direction and personally dictated by me. I have reviewed the chart and agree that the record accurately reflects my personal performance of the history, physical exam, medical decision making, and the department course for this patient. I have also personally directed, reviewed, and agree with the discharge instructions and disposition. Decision To Admit - Pt Status Changed To: Hospital Disposition Of: Inpatient - Admit Certification Admit to Inpatient:: After my assessment, the patient will require hospitalization for at least two midnights. This is because of the severity of symptoms shown, intensity of services needed, and/or the medical risk in this patient being treated as an outpatient. - InPatient: Physician Admission Certification: I certify that this patient requires 2 or more midnights of care for the following reason:: After my assessment, the patient will require hospitalization for at least two midnights. This is because of the severity of symptoms shown, intensity of services needed, and/or the medical risk in this patient being treated as an outpatient. - . Bed Request Type: Telemetry Admitting Physician: Giselle Urbina Patient Diagnosis: Anxiety, Paresthesia
[2018-04-28] MEDS ORDERED: Sodium Chloride 0.9% 1,000 ML IV SCH (00:30)
[2018-04-28 01:23] LABS: BASO # 0.1 K/uL (0.0-0.2); BASO % 0.7 % (0.0-2.0); EOS # 0.1 K/uL (0.0-0.7); EOS % 1.2 % (0.0-4.0); HEMOGLOBIN 13.9 g/dL (11.0-16.0); LYMPH # 3.6 K/uL (1.0-4.3); LYMPH % 30.9 % (20.0-40.0); MEAN CELL VOLUME 81.8 fL (81.0-99.0); MEAN CORPUSCULAR HEMOGLOBIN 27.2 pg (27.0-31.0); MEAN CORPUSCULAR HGB CONC 33.3 g/dL (33.0-37.0); MEAN PLATELET VOLUME 7.4 fL (7.2-11.7); MONO # 1.3 K/uL (0.0-0.8); MONO % 10.7 % (0.0-10.0); NEUT # 6.6 K/uL (1.8-7.0); NEUT % 56.5 % (50.0-75.0); NRBC % 0.1 % (0.0-2.0); RBC 5.09 Mil/uL (3.80-5.20); RED CELL DISTRIBUTION WIDTH 14.2 % (11.5-14.5); WHITE BLOOD COUNT 11.7 K/uL (4.8-10.8)
[2018-04-28 01:31] LABS: ALB/GLOB RATIO 1.4 (1.0-2.1); ALBUMIN 4.6 g/dL (3.5-5.0); ALT/SGPT 17 U/L (9-52); AST/SGOT 19 U/L (14-36); BLOOD UREA NITROGEN 16 mg/dL (7-17); CALCIUM 9.4 mg/dl (8.6-10.4); GFR NON-AFRICAN AMERICAN > 60; HDL CHOLESTEROL 47 mg/dL (30-70)
[2018-04-28 01:42] LABS: LDL CHOLESTEROL 156 mg/dL (0-129)
[2018-04-28] MEDS ORDERED: Potassium Chloride 10 mEq ER Tab PO STA (01:44)
[2018-04-28] MEDS ORDERED: Sodium Chloride 0.9% 1,000 ML ONE (01:52)
[2018-04-28] MEDS ORDERED: Potassium Chloride 10 mEq ER Tab PO ONE (01:52)
[2018-04-28 02:51] LABS: SQUAMOUS EPITHIAL 1 /hpf (0-5); URINE BILIRUBIN NEGATIVE (NEGATIVE); URINE CLARITY Clear (Clear); URINE COLOR Colorless (YELLOW); URINE GLUCOSE (UA) NORMAL (Normal); URINE LEUKOCYTE ESTERASE NEG Leu/uL (Negative); URINE PROTEIN NEGATIVE (NEGATIVE); URINE UROBILINOGEN NORMAL mg/dL (0.2-1.0)
[2018-04-28 03:01] LABS: URINE BLOOD NEGATIVE (NEGATIVE)
--- NOTE | 2018-04-28 07:43 | CT ---
Date of service: 04/28/2018 PROCEDURE: CT HEAD WITHOUT CONTRAST. HISTORY: Code Stroke COMPARISON: 07/14/2017 TECHNIQUE: Axial computed tomography images were obtained through the head/brain without intravenous contrast. Radiation dose: Total exam DLP = 996 mGy-cm. This CT exam was performed using one or more of the following dose reduction techniques: Automated exposure control, adjustment of the mA and/or kV according to patient size, and/or use of iterative reconstruction technique. FINDINGS: HEMORRHAGE: No intracranial hemorrhage. BRAIN: No mass effect or edema. Scattered focal lucencies in the subcortical and periventricular white matter suggestive for mild chronic microvascular ischemic change. VENTRICLES: Unremarkable. No hydrocephalus. CALVARIUM: Unremarkable. PARANASAL SINUSES: Unremarkable as visualized. No significant inflammatory changes. MASTOID AIR CELLS: Unremarkable as visualized. No inflammatory changes. OTHER FINDINGS: None. IMPRESSION: No acute intracranial abnormality. Mild chronic microvascular ischemic changes. If there is persistent concern for acute ischemic change, consider correlation with MRI. A preliminary report was generated at 12:47 a.m. on 04/28/[address] Juan Carlos Smith from [facility] [facility]
--- NOTE | 2018-04-28 08:53 | RAD ---
Chest x-ray single frontal view HISTORY: Code stroke. COMPARISON: 07/14/2017 FINDINGS: Biapical pleural thickening with upper lobe granulomatous changes. Mild venous congestion. Atherosclerotic calcification at the aortic knob. Top normal heart size. Degenerative changes in the spine. Impression: No focal infiltrate or effusion.
[2018-04-28] MEDS ORDERED: Aspirin-Dipyridamole 200-25 mg ER Cap PO SCH (10:00)
[2018-04-28] MEDS ORDERED: Enoxaparin 40 mg Syringe SC SCH (14:00)
--- NOTE | 2018-04-28 14:57 | MRI ---
Date of service: 04/28/2018 PROCEDURE: MRI BRAIN WITHOUT CONTRAST HISTORY: stroke COMPARISON: Contrast brain MRI 07/15/2017. TECHNIQUE: Multiplanar, multisequence MR images of the brain were obtained without intravenous contrast enhancement. FINDINGS: HEMORRHAGE: None DWI: No evidence of an acute or early subacute infarction. BRAIN PARENCHYMA: Mild chronic microangiopathy and diffuse cerebral atrophy are reiterated without significant interval change. No mass effect or suspicious extra-axial collection. Midline brain anatomy appears within normal limits once again. VENTRICLES: Unremarkable. No hydrocephalus. CRANIUM: Unremarkable. ORBITS: Grossly unremarkable. PARANASAL SINUSES/MASTOIDS: Clear VASCULAR SYSTEM: Skull base flow voids intact. OTHER FINDINGS: None. IMPRESSION: Stable age related neuro degenerative changes remain mild with no acute intracranial findings once again.
--- NOTE | 2018-04-28 15:05 | VASCLAB ---
Date of service: 04/28/2018 PROCEDURE: Carotid Duplex Exam. HISTORY: code stroke COMPARISON: None available. TECHNIQUE: Grayscale and duplex Doppler evaluation of the cervical carotid and vertebral arteries were performed. The common carotid, carotid bifurcations and cervical Internal Carotid Artery (ICA) and proximal External Carotid Artery (ECA) were evaluated. The vertebral arteries were evaluated for gross patency and flow direction. Report prepared by Luis Fernando Real, BS, RVT FINDINGS: RIGHT CAROTID ARTERIES: 1. Common Carotid Artery: No significant focal plaque formation of the right common carotid artery. Maximum Peak Systolic velocity: 78 cm/sec: End-diastolic velocity 22 cm/sec. 2. Carotid Bifurcation: plaque formation. Maximum Peak Systolic velocity: 90 cm/sec: End-diastolic velocity 17 cm/sec. 3. Internal Carotid Artery: Plaque description: 3.1. Proximal Segment: Peak systolic velocity 87 cm/sec: End-diastolic velocity 30 cm/sec - % stenosis 0-15% 3.2. Middle Segment: Peak systolic velocity 73 cm/sec: End-diastolic velocity 21 cm/sec - % stenosis 0-15% 3.3. Distal Segment: Peak systolic velocity 68 cm/sec: End-diastolic velocity 22 cm/sec - % stenosis 0-15% 4. External Carotid Artery: No significant focal plaque formation. Peak systolic velocity 140 cm/sec 5. ICA/CCA Ratio: 1.1 LEFT CAROTID ARTERIES: 1. Common Carotid Artery: No significant focal plaque formation of the left common carotid artery. Maximum Peak Systolic velocity: 77 cm/sec: End-diastolic velocity 21 cm/sec. 2. Carotid Bifurcation: plaque formation. Maximum Peak Systolic velocity: 139 cm/sec: End-diastolic velocity 39 cm/sec. 3. Internal Carotid Artery: Plaque description: 3.1. Proximal Segment: Peak systolic velocity 152 cm/sec: End-diastolic velocity 50 cm/sec - % stenosis 50-60% 3.2. Middle Segment: Peak systolic velocity 102 cm/sec: End-diastolic velocity 33 cm/sec - % stenosis 0-15% 3.3. Distal Segment: Peak systolic velocity 68 cm/sec: End-diastolic velocity 22 cm/sec - % stenosis 0-15% 4. External Carotid Artery: No significant focal plaque formation. Peak systolic velocity 118 cm/sec 5. ICA/CCA Ratio: 2.0 VERTEBRAL ARTERIES: 1. Right Vertebral Artery: The right vertebral artery flow direction is antegrade. 2. Left Vertebral Artery: The left vertebral artery flow direction is antegrade. OTHER FINDINGS: 1. Right Brachial Blood pressure: 118 mmHg. 2. Left Brachial Blood pressure: 110 mmHg. 3. No atherosclerotic calcification present IMPRESSION: RIGHT: Duplex scan does not suggest hemodynamically significant stenosis of the right extracranial carotid arteries. LEFT: 50-60% stenosis of the left proximal ICA with mild hemodynamic significance.
--- NOTE | 2018-04-28 16:00 | CP.PCM.CON ---
History of Present Illness - History of Present Illness History of Present Illness: PGY2 Neurology Consult Note for Dr. Holliday Patient is a 63 year old female with a past medical history of Hypertension, hypothyroidism, anxiety, PVD and CVA x2 presented to the emergency overnight with a complaint of left leg numbness and tingling starting around 10 pm last night. She began to feel nervous and felt her heart racing. She denies any chest pain, shortness of breath, nausea or vomiting. The tingling sensation spread down her left arm before she decided to come to the hospital. She reported a mild headache but denies any slurred speech or facial drooping. She has blurry vision at baseline but denies any acute change. Denies any dysequilibrium, facial numbess or focal weakness. During exam this morning, patient states she is back to normal and has no complaints. PMH: hypertension, hypothyroidism, anxiety, PVD and CVA x2. PSHx: Carotid endarterectomy (Feb), Cholecystectomy Family Hx: Type 2 diabetes, HTN, "heart problems" Social: Tobacco: current 1 ppd x 40 years, denies alcohol and drug use. [place] . Allergies: Iodine (anaphylaxis), fish Review of Systems - Review of Systems All systems: reviewed and no additional remarkable complaints except - Constitutional Constitutional: As Per HPI - EENT Eyes: As Per HPI Ears: As Per HPI Nose/Mouth/Throat: As Per HPI - Cardiovascular Cardiovascular: As Per HPI - Respiratory Respiratory: As Per HPI - Gastrointestinal Gastrointestinal: As Per HPI - Genitourinary Genitourinary: As Per HPI - Musculoskeletal Musculoskeletal: As Per HPI - Integumentary Integumentary: As Per HPI - Neurological Neurological: As Per HPI - Psychiatric Psychiatric: As Per HPI - Endocrine Endocrine: As Per HPI - Hematologic/Lymphatic Hematologic: As Per HPI Past Patient History - Past Medical History & Family History Past Medical History?: Yes - Past Social History Smoking Status: Heavy Smoker > 10 Cigarettes Daily - CARDIAC Hx Hypertension: Yes - PULMONARY Hx Asthma: Yes - NEUROLOGICAL Hx Neurological Disorder: No HX Cerebrovascular Accident: Yes (X2) - HEENT Hx HEENT Problems: Yes Other/Comment: some occasional loss of vision in right eye - RENAL Hx Chronic Kidney Disease: No - ENDOCRINE/METABOLIC Hx Hyperthyroidism: Yes - HEMATOLOGICAL/ONCOLOGICAL Hx Blood Disorders: No - INTEGUMENTARY Hx Dermatological Problems: No - MUSCULOSKELETAL/RHEUMATOLOGICAL Hx Musculoskeletal Disorders: No Hx Falls: No - GASTROINTESTINAL Hx Gastrointestinal Disorders: No - GENITOURINARY/GYNECOLOGICAL Hx Genitourinary Disorders: No - PSYCHIATRIC Hx Substance Use: No - SURGICAL HISTORY Hx Carotid Endarterectomy: Yes Hx Cholecystectomy: Yes - ANESTHESIA Hx Anesthesia: Yes Hx Anesthesia Reactions: Yes (nausea/vomiting) Meds Allergies/Adverse Reactions: Allergies Allergy/AdvReac Type Severity Reaction Status Date / Time iodine Allergy Verified 07/14/17 17:27 - Medications Medications: Current Medications Dipyridamole/Aspirin (Aggrenox 25-200 Mg) 1 ea PO BID [facility] Last Admin: 04/28/18 10:39 Dose: 1 ea Enoxaparin Sodium (Lovenox) 40 mg SC DAILY [facility] Last Admin: 04/28/18 14:35 Dose: 40 mg Hydrochlorothiazide (Hydrodiuril) 25 mg PO [facility] Levothyroxine Sodium (Synthroid) 75 mcg PO DAILY@0630 [facility] Lorazepam (Ativan) 1 mg PO DAILY PRN PRN Reason: Anxiety Last Admin: 04/28/18 12:21 Dose: 1 mg Rosuvastatin Calcium (Crestor) 10 mg PO HS [facility] Physical Exam - Constitutional Appears: No Acute Distress, Older Than Stated Age, Chronically Ill - Head Exam Head Exam: ATRAUMATIC, NORMAL INSPECTION, NORMOCEPHALIC - Eye Exam Eye Exam: EOMI, Normal appearance, PERRL Pupil Exam: NORMAL ACCOMODATION, PERRL - ENT Exam ENT Exam: Mucous Membranes Moist - Neck Exam Neck exam: Positive for: Full Rom, Normal Inspection - Respiratory Exam Respiratory Exam: NORMAL BREATHING PATTERN. absent: Accessory Muscle Use - Neurological Exam Neurological exam: Alert, CN II-XII Intact, Normal Gait, Oriented x3 Additional comments: mild pronator drift on left (chronic from prior CVA), negative romberg, strength 5/5 throughout b/l, normal finger to nose, brisk reflexes throughout b/l - Psychiatric Exam Psychiatric exam: Normal Affect, Normal Mood - Skin Skin Exam: Dry, Normal Color, Warm Results - Vital Signs Recent Vital Signs: Last Vital Signs Temp 97.5 F L 04/28/18 07:14 Pulse 73 04/28/18 08:32 Resp 18 04/28/18 07:39 BP 119/71 04/28/18 07:14 Pulse Ox 97 04/28/18 07:14 - Labs Result Diagrams: 04/28/18 01:15 04/28/18 01:15 Labs: Laboratory Results - last 24 hr 04/28/18 04/28/18 04/28/18 00:11 01:15 01:15 WBC 11.7 H RBC 5.09 Hgb 13.9 Hct 41.6 MCV 81.8 MCH 27.2 MCHC 33.3 RDW 14.2 Plt Count 345 MPV 7.4 Neut % (Auto) 56.5 Lymph % (Auto) 30.9 Latimer % (Auto) 10.7 H Eos % (Auto) 1.2 Baso % (Auto) 0.7 Neut # (Auto) 6.6 Lymph # (Auto) 3.6 Latimer # (Auto) 1.3 H Eos # (Auto) 0.1 Baso # (Auto) 0.1 PT 11.0 INR 1.0 APTT 35 H Sodium Potassium Chloride Carbon Dioxide Anion Gap BUN Creatinine Est GFR ( Amer) Est GFR (Non-Af Amer) POC Glucose (mg/dL) 152 H Random Glucose Hemoglobin A1c Calcium Phosphorus Magnesium Total Bilirubin AST ALT Alkaline Phosphatase Troponin I Total Protein Albumin Globulin Albumin/Globulin Ratio Triglycerides Cholesterol LDL Cholesterol Direct HDL Cholesterol Urine Color Urine Clarity Urine pH Ur Specific Witter Urine Protein Urine Glucose (UA) Urine Ketones Urine Blood Urine Nitrate Urine Bilirubin Urine Urobilinogen Ur Leukocyte Esterase Urine WBC (Auto) Urine RBC (Auto) Ur Squamous Epith Cells Blood Type Antibody Screen 04/28/18 04/28/18 04/28/18 01:15 01:15 01:19 WBC RBC Hgb Hct MCV MCH MCHC RDW Plt Count MPV Neut % (Auto) Lymph % (Auto) Latimer % (Auto) Eos % (Auto) Baso % (Auto) Neut # (Auto) Lymph # (Auto) Latimer # (Auto) Eos # (Auto) Baso # (Auto) PT INR APTT Sodium 140 Potassium 3.2 L Chloride 98 Carbon Dioxide 31 H Anion Gap 14 BUN 16 Creatinine 0.6 L Est GFR ( Amer) > 60 Est GFR (Non-Af Amer) > 60 POC Glucose (mg/dL) Random Glucose 120 H Hemoglobin A1c 5.9 Calcium 9.4 Phosphorus 3.6 Magnesium 2.1 Total Bilirubin 0.3 AST 19 ALT 17 Alkaline Phosphatase 59 Troponin I < 0.0120 Total Protein 8.0 Albumin 4.6 Globulin 3.4 Albumin/Globulin Ratio 1.4 Triglycerides 146 D Cholesterol 236 H LDL Cholesterol Direct 156 H HDL Cholesterol 47 Urine Color Urine Clarity Urine pH Ur Specific Witter Urine Protein Urine Glucose (UA) Urine Ketones Urine Blood Urine Nitrate Urine Bilirubin Urine Urobilinogen Ur Leukocyte Esterase Urine WBC (Auto) Urine RBC (Auto) Ur Squamous Epith Cells Blood Type A POSITIVE Antibody Screen Negative 04/28/18 02:34 WBC RBC Hgb Hct MCV MCH MCHC RDW Plt Count MPV Neut % (Auto) Lymph % (Auto) Latimer % (Auto) Eos % (Auto) Baso % (Auto) Neut # (Auto) Lymph # (Auto) Latimer # (Auto) Eos # (Auto) Baso # (Auto) PT INR APTT Sodium Potassium Chloride Carbon Dioxide Anion Gap BUN Creatinine Est GFR ( Amer) Est GFR (Non-Af Amer) POC Glucose (mg/dL) Random Glucose Hemoglobin A1c Calcium Phosphorus Magnesium Total Bilirubin AST ALT Alkaline Phosphatase Troponin I Total Protein Albumin Globulin Albumin/Globulin Ratio Triglycerides Cholesterol LDL Cholesterol Direct HDL Cholesterol Urine Color Colorless Urine Clarity Clear Urine pH 6.0 Ur Specific Witter 1.002 L Urine Protein Negative Urine Glucose (UA) Normal Urine Ketones Negative Urine Blood Negative Urine Nitrate Negative Urine Bilirubin Negative Urine Urobilinogen Normal Ur Leukocyte Esterase Neg Urine WBC (Auto) 2 Urine RBC (Auto) < 1 Ur Squamous Epith Cells 1 Blood Type Antibody Screen Assessment & Plan - Assessment and Plan (Free Text) Plan: Patient is a 63 year female with prior CVA x2 and known PVD presenting as a CODE STROKE. Patient likely had TIA as she is stable reporting all symptoms have resolved. MRI shows stable age related neuro degenerative changes remain mild with no acute intracranial findings. Carotid duplex show 50-60% stenosis of left proximal ICA and no hemodynamically significant stenosis of the right ICA. It was discussed with patient at length that she needs to stop smoking as she is at high risk of having another stroke. It was also discussed with her family members at bedside to stop smoking inside the house and near the patient. Patient is to continue taking her medications as previously prescribe including anti-platelet therapy and statin. She is to follow up with her PMD and outpatient neurologist upon discharge for further evaluation. Patient is stable for discharge home from Neurology standpoint at this time.
[2018-04-28 16:08] VITALS: BP 112/70; PULSE 78; RESP 20; TEMP 98; O2SAT 98
--- NOTE | 2018-04-28 16:20 | CP.PCM.PN ---
Subjective - Date & Time of Evaluation Date of Evaluation: 04/28/18 Time of Evaluation: 09:50 - Subjective Subjective: Medicine progress note ( Dr. Urbina's service) Patient was seen and examined at bedside and was resting comfortably in bed. Patient denies any acute issues or complaint at the moment. Patient denies chest pain, palpitations, shortness of breath, fever, chills, nausea, vomiting, headache, blurry vision , numbness or tingling. Patient is a 63 year old female with past medical history of Hypothyroid, HTN and anxiety, who presented to the ED overnight via ambulance with complaints of left leg numbness/tingling and left arm weakness that started at 10pm while in bed. Patient states that prior to going to bed, she had a cigarette. Patient states that the episode lasted for 2-3 hours with associated symptoms of palpitations due to her nervousness. In addition, patient admitted to symptoms of nausea but denies any episode of vomiting. In addition, patient admitted to mild headache but denies any episode of facial droop, blurry vision, slurred speech, chest pain, palpitations, shortness of breath, dizziness and syncope. PMD: Dr. Urbina PMH: HTN, hypothyroidism, anxiety, PVD and CVA x2. PSHx: Cholecystectomy, Carotid endarterectomy (Feb), Family Hx: Type 2 diabetes, HTN, "heart problems" Medications: [id number] daily, Lorazepam 1mg PO TID, HCTZ 25mg PO daily, Lipitor 20mg PO HS, Aggrenox 25-200mg 1 tab PO daily Social: Tobacco: 1 ppd x 40 years, denies alcohol and drug use. Born in . Allergies: Iodine (anaphylaxis), fish Objective - Vital Signs/Intake and Output Vital Signs (last 24 hours): Temp Pulse Resp BP Pulse Ox 97.5 F L 73 18 119/71 97 04/28/18 07:14 04/28/18 08:32 04/28/18 07:39 04/28/18 07:14 04/28/18 07:14 Intake and Output: 04/28/18 04/28/18 06:59 18:59 Intake Total 800 Balance 800 - Medications Medications: Current Medications Dipyridamole/Aspirin (Aggrenox 25-200 Mg) 1 ea PO BID [facility] Last Admin: 04/28/18 10:39 Dose: 1 ea Enoxaparin Sodium (Lovenox) 40 mg SC DAILY [facility] Last Admin: 04/28/18 14:35 Dose: 40 mg Hydrochlorothiazide (Hydrodiuril) 25 mg PO HS [facility] Levothyroxine Sodium (Synthroid) 75 mcg PO DAILY@0630 [facility] Lorazepam (Ativan) 1 mg PO DAILY PRN PRN Reason: Anxiety Last Admin: 04/28/18 12:21 Dose: 1 mg Rosuvastatin Calcium (Crestor) 10 mg PO HS [facility] - Labs Labs: 04/28/18 01:15 04/28/18 01:15 PT 11.0 SECONDS (9.7-12.2) 04/28/18 01:15 INR 1.0 04/28/18 01:15 APTT 35 SECONDS (21-34) H 04/28/18 01:15 - Constitutional Appears: Well, No Acute Distress - Head Exam Head Exam: ATRAUMATIC, NORMAL INSPECTION - Eye Exam Eye Exam: EOMI, Normal appearance - ENT Exam ENT Exam: Mucous Membranes Moist - Respiratory Exam Respiratory Exam: Clear to Ausculation Bilateral, NORMAL BREATHING PATTERN. absent: Chest Wall Tenderness, Decreased Breath Sounds, Rhonchi, Wheezes - Cardiovascular Exam Cardiovascular Exam: REGULAR RHYTHM, +S1, +S2. absent: Murmur - GI/Abdominal Exam GI & Abdominal Exam: Soft, Normal Bowel Sounds. absent: Distended, Firm, Guarding, Rigid - Extremities Exam Extremities Exam: Normal Inspection. absent: Calf Tenderness, Full ROM, Normal Capillary Refill, Pedal Edema, Tenderness - Back Exam Back Exam: NORMAL INSPECTION. absent: CVA tenderness (L), CVA tenderness (R) - Neurological Exam Neurological Exam: Alert, Awake, Normal Gait, Oriented x3 Neuro motor strength exam: Left Upper Extremity: 5, Right Upper Extremity: 5, Left Lower Extremity: 5, Right Lower Extremity: 5 - Psychiatric Exam Psychiatric exam: Normal Affect - Skin Skin Exam: Normal Color Assessment and Plan (1) TIA (transient ischemic attack) Assessment & Plan: Consultation: - Neurology, Dr. Holliday---> Help appreciated Imaging: Brain MRI:Stable age related neuro degenerative changes remain mild with no acute intracranial findings once again. Head CT: No acute intracranial abnormality. Mild chronic microvascular ischemic changes. If there is persistent concern for acute ischemic change, consider correlation with MRI. Carotid duplex: Carotid duplex show 50-60% stenosis of left proximal ICA and no hemodynamically significant stenosis of the right ICA Continue home medications: Lipitor 20mg PO HS Aggrenox 25-200mg 1 tab PO daily Disposition: Please discharge patient home as she is cleared by medical team Please continue all your home medications: -[id number] daily -Lorazepam 1mg PO TID PRN -HCTZ 25mg PO daily -Lipitor 20mg PO HS -Aggrenox 25-200mg 1 tab PO daily Please follow up with Dr. Urbina in 1-2 weeks Please follow up with your neurologist or Dr. Holliday in 1-2 weeks We encourage tobacco cessation Please take care All plans and management discussed with Dr. Urbina Status: Acute
[2018-04-29] MEDS ORDERED: Levothyroxine 75 MCG TAB PO SCH (06:30)
--- NOTE | 2018-04-29 07:08 | CARD ---
APPROVED REPORT Date of service: 04/28/2018 EXAM: Two-dimensional and M-mode echocardiogram with Doppler and color Doppler. Other Information Quality : GoodRhythm : INDICATION CVA/TIA RISK FACTORS Hypertension Diabetes 2D DIMENSIONS IVSd0.7 (0.7-1.1cm)LVDd3.5 (3.9-5.9cm) PWd0.7 (0.7-1.1cm)LA [id number] (18-58mL) LVDs2.2 (2.5-4.0cm)FS (%) 37.4 % LVEF (%)68.4 (>50%)LVEF (Alex's)59.97 % M-Mode DIMENSIONS Left Atrium (MM)2.14 (2.5-4.0cm)IVSd0.70 (0.7-1.1cm) Aortic Root2.66 (2.2-3.7cm)LVDd4.33 (4.0-5.6cm) Aortic Cusp Exc.1.37 (1.5-2.0cm)PWd0.72 (0.7-1.1cm) FS (%) 29 %LVDs3.07 (2.0-3.8cm) LVEF (%)56 (>50%) Mitral Valve MV E Phdaqkef18.7cm/sMV A Laonhtlw91.4cm/sE/A ratio0.9 TDI Lateral E' Peak V9.26cm/sMedial E' Peak V5.25cm/sE/Lateral E'8.4 E/Medial E'14.8 Tricuspid Valve TR Peak [id number]/sTR Peak [id number] LEFT VENTRICLE The left ventricle is normal size. There is normal left ventricular wall thickness. The left ventricular function is normal. The left ventricular ejection fraction is within the normal range. There is normal LV segmental wall motion. The left ventricular diastolic function is normal. RIGHT VENTRICLE The right ventricle is normal size. ATRIA The left atrium size is normal. The right atrium size is normal. AORTIC VALVE The aortic valve is normal in structure. MITRAL VALVE Mitral regurgitation is trace. TRICUSPID VALVE There is trace tricuspid regurgitation. <Conclusion> Normal LV systolic function. Normal chamner size. Trace MR. Trace to mild TR.
--- NOTE | 2018-04-29 15:37 | CARD ---
APPROVED REPORT Date of service: 04/28/2018 EKG Measurement Heart [id number] <Conclusion> Normal sinus rhythm Normal ECG
[2018-04-29] MEDS ORDERED: Potassium Chloride 20 mEq ER Tab PO ONE (16:08)
== END 2018-04-28 16:50 | disposition home or self-care (01) | DRG 69 ==
LOC: C.ER 00:10 → C.9E 01:28 → C.5S 06:25
PROVIDERS: ADMIT Internal Medicine Pulmonary Disease; ATTEND Internal Medicine Pulmonary Disease
DX: G45.9 Transient cerebral ischemic attack, unspecified (principal); H54.7 Unspecified visual loss; I10 Essential (primary) hypertension; I25.10 Atherosclerotic heart disease of native coronary artery without angina pectoris; E03.9 Hypothyroidism, unspecified; E11.51 Type 2 diabetes mellitus with diabetic peripheral angiopathy without gangrene; F17.210 Nicotine dependence, cigarettes, uncomplicated; F41.9 Anxiety disorder, unspecified; J45.909 Unspecified asthma, uncomplicated; Z86.73 Personal history of transient ischemic attack (TIA), and cerebral infarction without residual deficits